=== PATIENT | male | born 1955 | race Two or more races ===

== ENCOUNTER 2020-05-05 12:20 | Inpatient (IN) | payer MEDICAID ==
[~2020-05-05] VITALS: Ht 175.3 cm; Wt 98.4 kg
[2020-05-05] MEDS ORDERED: VITAMIN C500 M1 ORAL (13:06)
[2020-05-05] MEDS ORDERED: ZINC50 MG ORAL (13:06)
[2020-05-05] MEDS ORDERED: SPIRONOLACTONE25 MG ORAL (13:06)
[2020-05-05] MEDS ORDERED: GABAPENTIN100 MG ORAL (13:06)
[2020-05-05] MEDS ORDERED: FERROUS SULFAT325 MG ORAL (13:06)
[2020-05-05] MEDS ORDERED: SERTRALINE HCL100 MG PO (13:06)
[2020-05-05] MEDS ORDERED: PROPRANOLOL HCL10 MG ORAL (13:06)
--- NOTE | 2020-05-05 13:18 | Emergency Room Report ---
History of Present Illness General Chief Complaint: General Complaint Source: Patient Present Illness HPI Disclaimer: Please note that this report is being documented using [employer] technology. This can lead to erroneous entry secondary to incorrect interpretation by the dictating instrument. HPI: 64-year-old male history of cirrhosis, hypertension, anemia, behavioral disorder presents after becoming aggressive at his [facility] facility. Apparently patient yelling and uncooperative. His primary care doctor sent him here for further evaluation. Patient denies any fever nausea vomiting chest pain or shortness of breath. 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 COVID-19 Screening: Negative COVID-19 COVID-19 Testing Source: 04/30/20 [facility] Patient History Reviewed Nursing Documentation: PMH: Agreed; PSxH: Agreed Nursing Documentation-PMH Past Medical History: No History, Except For Hx Cardiac Problems: Yes - bradycardia History Of Psychiatric Problem: Yes - depression Review of Systems All Other Systems: negative except mentioned in HPI Physical Exam Vital Signs Date Time Temp Pulse Resp B/P (MAP) Pulse Ox O2 Delivery O2 Flow Rate FiO2 05/05/20 12:21 98.4 56 18 91/53 (66) 97 Room Air Sp02 EP Interpretation: reviewed, normal General Appearance: well appearing, no apparent distress Head: normocephalic, atraumatic Eyes: bilateral eye PERRL, bilateral eye EOMI ENT: hearing grossly normal, moist mucus membranes Neck: full range of motion, supple Respiratory: lungs clear, normal breath sounds, no rhonchi, no respiratory distress, no retraction, no wheezing Cardiovascular #1: normal peripheral pulses, regular rate, rhythm, no murmur Gastrointestinal: non tender, soft, non-distended, no guarding, other - Ascites noted Musculoskeletal: other - Bilateral lower extremity edema noted 2+ up to the knees Neurologic: alert, oriented x3, no focal defects Psychiatric: other - Patient denies any suicidal or homicidal ideation. Labile mood Skin: normal color, warm/dry, other - Psoriatic changes noted Medical Decision Making Diagnostic Impression: Primary Impression: Encephalopathy Additional Impression: History of cirrhosis ER Course MDM: Differential diagnosis included but not limited to encephalopathy, behavior disorder, alcohol abuse to name a few Clinical course-the inserted, basic laboratory studies were sent. I spoke with patient's primary care doctor who states the patient was sent secondary to aggressive behavior. He can no longer be treated appropriately at his current [facility] facility. Plan will be to admit patient to the medical floor for further observation and treatment. Labs - Laboratory Tests Test 05/05/20 12:56 White Blood Count 4.1 K/UL (4.8-10.8) L Red Blood Count 4.62 M/UL (4.70-6.10) L Hemoglobin 12.4 G/DL (14.2-18.0) L Hematocrit 40.2 % (42.0-52.0) L Mean Corpuscular Volume 87 FL (80-99) Mean Corpuscular Hemoglobin 26.9 PG (27.0-31.0) L Mean Corpuscular Hemoglobin Concent 31.0 G/DL (32.0-36.0) L Red Cell Distribution Width 17.2 % (11.6-14.8) H Platelet Count 94 K/UL (150-450) L Mean Platelet Volume 8.8 FL (6.5-10.1) Neutrophils (%) (Auto) % (45.0-75.0) Lymphocytes (%) (Auto) % (20.0-45.0) Monocytes (%) (Auto) % (1.0-10.0) Eosinophils (%) (Auto) % (0.0-3.0) Basophils (%) (Auto) % (0.0-2.0) Differential Total Cells Counted 100 Neutrophils % (Manual) 49 % (45-75) Lymphocytes % (Manual) 39 % (20-45) Monocytes % (Manual) 8 % (1-10) Eosinophils % (Manual) 4 % (0-3) H Basophils % (Manual) 0 % (0-2) Band Neutrophils 0 % (0-8) Platelet Estimate Decreased L Platelet Morphology Normal Anisocytosis 1+ Sodium Level 141 MMOL/L (136-145) Potassium Level 3.8 MMOL/L (3.5-5.1) Chloride Level 107 MMOL/L (98-107) Carbon Dioxide Level 25 MMOL/L (21-32) Anion Gap 9 mmol/L (5-15) Blood Urea Nitrogen 20 mg/dL (7-18) H Creatinine 1.1 MG/DL (0.55-1.30) Estimated Glomerular Filtration Rate > 60 mL/min (>60) Glucose Level 87 MG/DL (74-106) Calcium Level 9.3 MG/DL (8.5-10.1) Total Bilirubin 0.7 MG/DL (0.2-1.0) Aspartate Amino Transferase (AST) 82 U/L (15-37) H Alanine Aminotransferase (ALT) 60 U/L (12-78) Alkaline Phosphatase 94 U/L (46-116) Ammonia 48 umol/L (11-32) H Total Protein 7.5 G/DL (6.4-8.2) Albumin 3.2 G/DL (3.4-5.0) L Globulin 4.3 g/dL Albumin/Globulin Ratio 0.7 (1.0-2.7) L Lipase 407 U/L (73-393) H Serum Alcohol < 3 mg/dL On reevaluation: Patient in no acute distress Plan-patient to Dr. Amato Last Vital Signs Date Time Temp Pulse Resp B/P (MAP) Pulse Ox O2 Delivery O2 Flow Rate FiO2 05/05/20 12:21 98.4 56 18 91/53 (66) 97 Room Air Disposition: ADMITTED INPATIENT Condition: Serious Johnson Gould M.D. May 05, 2020 13:18
[2020-05-05 13:38] LABS: HEMATOCRIT 40.2 % (42.0-52.0); HEMOGLOBIN 12.4 G/DL (14.2-18.0); MEAN CORPUSCULAR VOLUME 87 FL (80-99); PLATELET COUNT 94 K/UL (150-450); RED BLOOD COUNT 4.62 M/UL (4.70-6.10); RED CELL DISTRIBUTION WIDTH 17.2 % (11.6-14.8); WHITE BLOOD COUNT 4.1 K/UL (4.8-10.8)
[2020-05-05 13:41] VITALS: BP 91/53
[2020-05-05 13:57] LABS: ANION GAP 9 mmol/L (5-15); BLOOD UREA NITROGEN 20 mg/dL (7-18); CALCIUM 9.3 MG/DL (8.5-10.1); CARBON DIOXIDE 25 MMOL/L (21-32); CHLORIDE 107 MMOL/L (98-107); CREATININE 1.1 MG/DL (0.55-1.30); POTASSIUM 3.8 MMOL/L (3.5-5.1); SODIUM 141 MMOL/L (136-145)
[2020-05-05 14:01] LABS: ALANINE AMINOTRANSFERASE 60 U/L (12-78); ALBUMIN 3.2 G/DL (3.4-5.0); ALBUMIN/GLOBULIN RATIO 0.7 (1.0-2.7); ALKALINE PHOSPHATASE 94 U/L (46-116); ASPARTATE AMINO TRANSFERASE 82 U/L (15-37); BILIRUBIN,TOTAL 0.7 MG/DL (0.2-1.0)
[2020-05-05 14:06] LABS: AMMONIA 48 umol/L (11-32)
[2020-05-05 14:49] LABS: APPEARANCE,URINE SLIGHTLY CLOUDY; BILIRUBIN, URINE NEGATIVE (NEGATIVE); COLOR,URINE PALE YELLOW; GLUCOSE, URINE (UA) NEGATIVE (NEGATIVE); KETONES,URINE NEGATIVE (NEGATIVE); LEUKOCYTE ESTERASE ,URINE NEGATIVE (NEGATIVE); NITRITE,URINE NEGATIVE (NEGATIVE); PH,URINE 6.5 (4.5-8.0); PROTEIN,URINE NEGATIVE (NEGATIVE); UROBILINOGEN,URINE NORMAL MG/DL (0.0-1.0)
[2020-05-05 18:59] VITALS: BP 113/72
[2020-05-06] VITALS: BP 120/80
[2020-05-06 04:00] VITALS: BP 107/56
[2020-05-06 08:00] VITALS: BP 102/42
[2020-05-06] MEDS: Propranolol 10mg tab ORAL SCH ×3 (09:00→17:08)
[2020-05-06] MEDS: Sertraline 100mg tab ORAL SCH (09:56)
[2020-05-06] MEDS: Zinc Sulfate 220mg ORAL SCH (09:56)
[2020-05-06] MEDS: Spironolactone 25mg tab ORAL SCH (09:56)
[2020-05-06] MEDS: Ascorbic Acid 500mg tab ORAL SCH (09:56)
[2020-05-06] MEDS ORDERED: CLOBETASOL PROP15 GM TP (10:14)
[2020-05-06] MEDS ORDERED: ACETAMINOPHEN500 M3 ORAL (10:14)
--- NOTE | 2020-05-06 11:02 | Consultation ---
History of Present Illness General Date patient seen: May 06, 2020 Reason for Hospitalization: General Complaint Present Illness HPI This is a 64-year-old male history of cirrhosis, hypertension, anemia, behavioral disorder presents after becoming aggressive at his [facility] facility. Apparently patient yelling and uncooperative. His primary care doctor sent him here for further evaluation. Patient denies any fever nausea vomiting chest pain or shortness of breath. In ED identified to have elevated lipase pancreatitis currently abdominal discomfort surgery called to evaluate assist with care patient seen patient evaluate chart reviewed. Currently no nausea vomiting fever chills. Up and walking around brushing his teeth asking when his next meal is. Denies any current discomfort. Identified to have abdominal distention. Allergies: Coded Allergies: No Known Allergies (Unverified , 05/05/20) COVID-19 Screening Contact w/high risk pt: No Experienced COVID-19 symptoms?: No Medication History Scheduled Acetaminophen* (Acetaminophen Extra Strength*), 500 MG ORAL DAILY, (Reported) Ascorbic Acid* (Vitamin C*), 500 MG ORAL BID, (Reported) Clobetasol Propionate (Clobetasol Propionate), 1 APPLIC TP BID, (Reported) Ferrous Sulfate* (Ferrous Sulfate*), 325 MG ORAL DAILY, (Reported) Gabapentin* (Gabapentin*), 100 MG ORAL THREE TIMES A DAY, (Reported) Propranolol Hcl* (Inderal*), 10 MG ORAL THREE TIMES A DAY, (Reported) Sertraline Hcl* (Zoloft*), 100 MG PO QHS, (Reported) Spironolactone* (Aldactone*), 25 MG ORAL BID, (Reported) Miscellaneous Medications Zinc Gluconate (Zinc), 50 MG ORAL, (Reported) Patient History Limited by: medical condition History Provided By: Patient, Medical Record, PMD Healthcare decision maker Resuscitation status Advanced Directive on File Past Medical/Surgical History Past Medical/Surgical History: (1) Pancreatitis (2) History of cirrhosis (3) Encephalopathy Review of Systems Review of Symptoms General ROS: no weight loss or fever Psychological ROS: no depression or mood changes, no memory loss Ophthalmic ROS: no visual changes or eye irritation ENT ROS: no nasal congestion, hearing loss, dizziness Allergy and Immunology ROS: no allergic symptoms or urticaria Hematological and Lymphatic ROS: no swollen glands, unusual bleeding or bruising Endocrine ROS: no polyuria, polydipsia, weight changes, temperature intolerance Respiratory ROS: no cough, shortness of breath, or wheezing Cardiovascular ROS: no chest pain or dyspnea on exertion Gastrointestinal ROS: denies abdominal pain, bright red blood in stool. Musculoskeletal ROS: no myalgias or arthralgias Neurological ROS: no TIA or stroke symptoms Dermatological ROS: no new or changing skin lesions, rashes or pruritis Physical Exam Physical Exam General appearance: alert, cooperative, no distress, appears stated age Head: Normocephalic, without obvious abnormality, atraumatic Eyes: conjunctivae/corneas clear. PERRL, EOM's intact. Fundi benign Throat: Lips, mucosa, and tongue normal. Teeth and gums normal Neck: supple, symmetrical, trachea midline, no adenopathy, thyroid: not enlarged, symmetric, no tenderness/mass/nodules, no carotid bruit and no JVD Lungs: clear to auscultation bilaterally Heart: regular rate and rhythm, S1, S2 normal, no murmur, click, rub or gallop Abdomen: soft, non-tender. Bowel sounds normal. No masses, no organomegaly Extremities: extremities normal, atraumatic, no cyanosis or edema Pulses: 2+ and symmetric Skin: Skin color, texture, turgor normal. No rashes or lesions Neurologic: Grossly normal Last 24 Hour Vital Signs Date Time Temp Pulse Resp B/P (MAP) Pulse Ox O2 Delivery O2 Flow Rate FiO2 05/06/20 09:00 57 102/42 05/06/20 08:00 97.7 57 18 102/42 (62) 99 05/06/20 04:00 97.4 58 20 107/56 (73) 97 05/06/20 00:00 97.3 60 20 120/80 (93) 97 05/05/20 23:47 Room Air 05/05/20 18:59 59 18 113/72 99 Room Air 05/05/20 13:41 98.4 18 91/53 97 Room Air 98 05/05/20 13:10 18 Room Air 98 05/05/20 12:21 98.4 56 18 91/53 (66) 97 Room Air Intake and Output 05/05/20 05/06/20 19:00 07:00 Intake Total 240 ml Balance 240 ml Intake Oral 240 ml # Voids 2 Laboratory Tests Test 05/05/20 12:56 05/05/20 14:25 White Blood Count 4.1 K/UL (4.8-10.8) L Red Blood Count 4.62 M/UL (4.70-6.10) L Hemoglobin 12.4 G/DL (14.2-18.0) L Hematocrit 40.2 % (42.0-52.0) L Mean Corpuscular Volume 87 FL (80-99) Mean Corpuscular Hemoglobin 26.9 PG (27.0-31.0) L Mean Corpuscular Hemoglobin Concent 31.0 G/DL (32.0-36.0) L Red Cell Distribution Width 17.2 % (11.6-14.8) H Platelet Count 94 K/UL (150-450) L Mean Platelet Volume 8.8 FL (6.5-10.1) Neutrophils (%) (Auto) % (45.0-75.0) Lymphocytes (%) (Auto) % (20.0-45.0) Monocytes (%) (Auto) % (1.0-10.0) Eosinophils (%) (Auto) % (0.0-3.0) Basophils (%) (Auto) % (0.0-2.0) Differential Total Cells Counted 100 Neutrophils % (Manual) 49 % (45-75) Lymphocytes % (Manual) 39 % (20-45) Monocytes % (Manual) 8 % (1-10) Eosinophils % (Manual) 4 % (0-3) H Basophils % (Manual) 0 % (0-2) Band Neutrophils 0 % (0-8) Platelet Estimate Decreased L Platelet Morphology Normal Anisocytosis 1+ Sodium Level 141 MMOL/L (136-145) Potassium Level 3.8 MMOL/L (3.5-5.1) Chloride Level 107 MMOL/L (98-107) Carbon Dioxide Level 25 MMOL/L (21-32) Anion Gap 9 mmol/L (5-15) Blood Urea Nitrogen 20 mg/dL (7-18) H Creatinine 1.1 MG/DL (0.55-1.30) Estimat Glomerular Filtration Rate > 60 mL/min (>60) Glucose Level 87 MG/DL (74-106) Calcium Level 9.3 MG/DL (8.5-10.1) Total Bilirubin 0.7 MG/DL (0.2-1.0) Aspartate Amino Transf (AST/SGOT) 82 U/L (15-37) H Alanine Aminotransferase (ALT/SGPT) 60 U/L (12-78) Alkaline Phosphatase 94 U/L (46-116) Ammonia 48 umol/L (11-32) H Total Protein 7.5 G/DL (6.4-8.2) Albumin 3.2 G/DL (3.4-5.0) L Globulin 4.3 g/dL Albumin/Globulin Ratio 0.7 (1.0-2.7) L Lipase 407 U/L (73-393) H Serum Alcohol < 3 mg/dL Urine Color Pale yellow Urine Appearance Slightly cloudy Urine pH 6.5 (4.5-8.0) Urine Specific [place] 1.015 (1.005-1.035) Urine Protein Negative (NEGATIVE) Urine Glucose (UA) Negative (NEGATIVE) Urine Ketones Negative (NEGATIVE) Urine Blood Negative (NEGATIVE) Urine Nitrite Negative (NEGATIVE) Urine Bilirubin Negative (NEGATIVE) Urine Urobilinogen Normal MG/DL (0.0-1.0) Urine Leukocyte Esterase Negative (NEGATIVE) Urine Opiates Screen Negative (NEGATIVE) Urine Barbiturates Screen Negative (NEGATIVE) Phencyclidine (PCP) Screen Negative (NEGATIVE) Urine Amphetamines Screen Negative (NEGATIVE) Urine Benzodiazepines Screen Negative (NEGATIVE) Urine Cocaine Screen Negative (NEGATIVE) Urine Marijuana (THC) Screen Negative (NEGATIVE) Height (Feet): 5 Height (Inches): 9.00 Weight (Pounds): 217 Medications Current Medications Medications (Trade) Dose Ordered Sig/Mirian Route PRN Reason Start Time Stop Time Status Last Admin Dose Admin Ascorbic Acid (Vitamin C) 500 mg DAILY ORAL 05/06/20 09:00 06/05/20 08:59 05/06/20 09:56 Ferrous Sulfate (Feosol) 325 mg DAILY ORAL 05/06/20 09:00 08/04/20 08:59 05/06/20 09:57 Gabapentin (Neurontin) 100 mg THREE TIMES A DAY ORAL 05/06/20 09:00 06/05/20 08:59 05/06/20 09:57 Propranolol HCl (Inderal) 10 mg THREE TIMES A DAY ORAL 05/06/20 09:00 06/05/20 08:59 Sertraline HCl (Zoloft) 100 mg DAILY ORAL 05/06/20 09:00 06/05/20 08:59 05/06/20 09:56 Spironolactone (Aldactone) 25 mg DAILY ORAL 05/06/20 09:00 06/05/20 08:59 05/06/20 09:56 Zinc Sulfate (Zinc Sulfate) 220 mg DAILY ORAL 05/06/20 09:00 08/04/20 08:59 05/06/20 09:56 Assessment/Plan Problem List: (1) History of cirrhosis ICD Codes: Z87.19 - Personal history of other diseases of the digestive system SNOMED: 738477858 (2) Pancreatitis Assessment & Plan: This is a 64-year-old male with known history of cirrhosis and identified to have pancreatitis aggressive encephalopathy admitted for the care management. Labs noted. No current imaging available. Imaging ordered. Ultrasound abdomen. Abdominal distention fluid potentially ascites may need tap. Afebrile hemodynamic stable labs noted shift identified. LFTs noted. Okay for diet from surgical standpoint. Will follow with recommendations as imaging and orders available. ICD Codes: K85.90 - Acute pancreatitis without necrosis or infection, unspecified SNOMED: 11603153 (3) Encephalopathy ICD Codes: G93.40 - Encephalopathy, unspecified SNOMED: 01857061 Declan Cole May 06, 2020 11:02
--- NOTE | 2020-05-06 11:13 | History & Physical ---
History of Present Illness General Reason for Hospitalization: General Complaint Present Illness HPI HISTORY OF PRESENT ILLNESS: This is a 64-year-old male with past medical history of hepatitis C, hypertension, cirrhosis, anemia, and behavioral disorder, who presented to ED after becoming aggressive at his [facility] facility. Patient tested negative for COVID-19 at his facility on 04/30/2020. PAST MEDICAL HISTORY: Hypertension, hepatitis C, cirrhosis, anemia, behavioral disorder, depression MEDICATIONS: Acetaminophen, ascorbic acid, ferrous sulfate, gabapentin, propranolol, sertraline, spironolactone, zinc ALLERGIES: No known allergies FAMILY HISTORY: Noncontributory PERSONAL/SOCIAL HISTORY: Resident of [facility], current smoker (2 cigarettes a day for 3 years), history of methamphetamine use (for 5 years, quit 4 years ago) REVIEW OF SYSTEMS: Patient denies chest pain, shortness of breath, headache, fever, nausea, vomiting, abdominal pain, cough. Allergies: Coded Allergies: No Known Allergies (Unverified , 05/05/20) COVID-19 Screening Contact w/high risk pt: No Experienced COVID-19 symptoms?: No Medication History Scheduled Acetaminophen* (Acetaminophen Extra Strength*), 500 MG ORAL DAILY, (Reported) Ascorbic Acid* (Vitamin C*), 500 MG ORAL BID, (Reported) Clobetasol Propionate (Clobetasol Propionate), 1 APPLIC TP BID, (Reported) Ferrous Sulfate* (Ferrous Sulfate*), 325 MG ORAL DAILY, (Reported) Gabapentin* (Gabapentin*), 100 MG ORAL THREE TIMES A DAY, (Reported) Propranolol Hcl* (Inderal*), 10 MG ORAL THREE TIMES A DAY, (Reported) Sertraline Hcl* (Zoloft*), 100 MG PO QHS, (Reported) Spironolactone* (Aldactone*), 25 MG ORAL BID, (Reported) Miscellaneous Medications Zinc Gluconate (Zinc), 50 MG ORAL, (Reported) Patient History Healthcare decision maker Resuscitation status Advanced Directive on File Review of Systems Review of Symptoms General ROS: no weight loss or fever Psychological ROS: no depression or mood changes, no memory loss Ophthalmic ROS: no visual changes or eye irritation ENT ROS: no nasal congestion, hearing loss, dizziness Allergy and Immunology ROS: no allergic symptoms or urticaria Hematological and Lymphatic ROS: no swollen glands, unusual bleeding or bruising Endocrine ROS: no polyuria, polydipsia, weight changes, temperature intolerance Respiratory ROS: no cough, shortness of breath, or wheezing Cardiovascular ROS: no chest pain or dyspnea on exertion Gastrointestinal ROS: denies abdominal pain, bright red blood in stool. Musculoskeletal ROS: no myalgias or arthralgias Neurological ROS: no TIA or stroke symptoms Dermatological ROS: no new or changing skin lesions, rashes or pruritis Physical Exam Physical Exam General appearance: alert, cooperative, no distress, appears stated age Head: Normocephalic, without obvious abnormality, atraumatic Eyes: conjunctivae/corneas clear. PERRL, EOM's intact. Fundi benign Throat: Lips, mucosa, and tongue normal. Teeth and gums normal Neck: supple, symmetrical, trachea midline, no adenopathy, thyroid: not enlarged, symmetric, no tenderness/mass/nodules, no carotid bruit and no JVD Lungs: clear to auscultation bilaterally Heart: regular rate and rhythm, S1, S2 normal, no murmur, click, rub or gallop Abdomen: soft, non-tender. Bowel sounds normal. No masses, no organomegaly Extremities: extremities normal, atraumatic, no cyanosis or edema Pulses: 2+ and symmetric Skin: Skin color, texture, turgor normal. No rashes or lesions Neurologic: Grossly normal Last 24 Hour Vital Signs Date Time Temp Pulse Resp B/P (MAP) Pulse Ox O2 Delivery O2 Flow Rate FiO2 05/06/20 09:00 57 102/42 05/06/20 08:00 97.7 57 18 102/42 (62) 99 05/06/20 04:00 97.4 58 20 107/56 (73) 97 05/06/20 00:00 97.3 60 20 120/80 (93) 97 05/05/20 23:47 Room Air 05/05/20 18:59 59 18 113/72 99 Room Air 05/05/20 13:41 98.4 18 91/53 97 Room Air 98 05/05/20 13:10 18 Room Air 98 05/05/20 12:21 98.4 56 18 91/53 (66) 97 Room Air Intake and Output 05/05/20 05/06/20 19:00 07:00 Intake Total 240 ml Balance 240 ml Intake Oral 240 ml # Voids 2 Laboratory Tests Test 05/05/20 12:56 05/05/20 14:25 White Blood Count 4.1 K/UL (4.8-10.8) L Red Blood Count 4.62 M/UL (4.70-6.10) L Hemoglobin 12.4 G/DL (14.2-18.0) L Hematocrit 40.2 % (42.0-52.0) L Mean Corpuscular Volume 87 FL (80-99) Mean Corpuscular Hemoglobin 26.9 PG (27.0-31.0) L Mean Corpuscular Hemoglobin Concent 31.0 G/DL (32.0-36.0) L Red Cell Distribution Width 17.2 % (11.6-14.8) H Platelet Count 94 K/UL (150-450) L Mean Platelet Volume 8.8 FL (6.5-10.1) Neutrophils (%) (Auto) % (45.0-75.0) Lymphocytes (%) (Auto) % (20.0-45.0) Monocytes (%) (Auto) % (1.0-10.0) Eosinophils (%) (Auto) % (0.0-3.0) Basophils (%) (Auto) % (0.0-2.0) Differential Total Cells Counted 100 Neutrophils % (Manual) 49 % (45-75) Lymphocytes % (Manual) 39 % (20-45) Monocytes % (Manual) 8 % (1-10) Eosinophils % (Manual) 4 % (0-3) H Basophils % (Manual) 0 % (0-2) Band Neutrophils 0 % (0-8) Platelet Estimate Decreased L Platelet Morphology Normal Anisocytosis 1+ Sodium Level 141 MMOL/L (136-145) Potassium Level 3.8 MMOL/L (3.5-5.1) Chloride Level 107 MMOL/L (98-107) Carbon Dioxide Level 25 MMOL/L (21-32) Anion Gap 9 mmol/L (5-15) Blood Urea Nitrogen 20 mg/dL (7-18) H Creatinine 1.1 MG/DL (0.55-1.30) Estimat Glomerular Filtration Rate > 60 mL/min (>60) Glucose Level 87 MG/DL (74-106) Calcium Level 9.3 MG/DL (8.5-10.1) Total Bilirubin 0.7 MG/DL (0.2-1.0) Aspartate Amino Transf (AST/SGOT) 82 U/L (15-37) H Alanine Aminotransferase (ALT/SGPT) 60 U/L (12-78) Alkaline Phosphatase 94 U/L (46-116) Ammonia 48 umol/L (11-32) H Total Protein 7.5 G/DL (6.4-8.2) Albumin 3.2 G/DL (3.4-5.0) L Globulin 4.3 g/dL Albumin/Globulin Ratio 0.7 (1.0-2.7) L Lipase 407 U/L (73-393) H Serum Alcohol < 3 mg/dL Urine Color Pale yellow Urine Appearance Slightly cloudy Urine pH 6.5 (4.5-8.0) Urine Specific [place] 1.015 (1.005-1.035) Urine Protein Negative (NEGATIVE) Urine Glucose (UA) Negative (NEGATIVE) Urine Ketones Negative (NEGATIVE) Urine Blood Negative (NEGATIVE) Urine Nitrite Negative (NEGATIVE) Urine Bilirubin Negative (NEGATIVE) Urine Urobilinogen Normal MG/DL (0.0-1.0) Urine Leukocyte Esterase Negative (NEGATIVE) Urine Opiates Screen Negative (NEGATIVE) Urine Barbiturates Screen Negative (NEGATIVE) Phencyclidine (PCP) Screen Negative (NEGATIVE) Urine Amphetamines Screen Negative (NEGATIVE) Urine Benzodiazepines Screen Negative (NEGATIVE) Urine Cocaine Screen Negative (NEGATIVE) Urine Marijuana (THC) Screen Negative (NEGATIVE) Height (Feet): 5 Height (Inches): 9.00 Weight (Pounds): 217 Medications Current Medications Medications (Trade) Dose Ordered Sig/Mirian Route PRN Reason Start Time Stop Time Status Last Admin Dose Admin Ascorbic Acid (Vitamin C) 500 mg DAILY ORAL 05/06/20 09:00 06/05/20 08:59 05/06/20 09:56 Ferrous Sulfate (Feosol) 325 mg DAILY ORAL 05/06/20 09:00 08/04/20 08:59 05/06/20 09:57 Gabapentin (Neurontin) 100 mg THREE TIMES A DAY ORAL 05/06/20 09:00 06/05/20 08:59 05/06/20 09:57 Propranolol HCl (Inderal) 10 mg THREE TIMES A DAY ORAL 05/06/20 09:00 06/05/20 08:59 Sertraline HCl (Zoloft) 100 mg DAILY ORAL 05/06/20 09:00 06/05/20 08:59 3/5/21 09:56 Spironolactone (Aldactone) 25 mg DAILY ORAL 05/06/20 09:00 06/05/20 08:59 05/06/20 09:56 Zinc Sulfate (Zinc Sulfate) 220 mg DAILY ORAL 05/06/20 09:00 08/04/20 08:59 05/06/20 09:56 Assessment/Plan Diagnosis [place] [facility]: #hepatitis C cirrhosis #Elevated lipase #hypertension #cirrhosis #anemia, #behavioral disorder, - admit inpatient - GI eval - gen surg eval - monitor LFTS - abd US - resume [employer] meds - monitor lytes - propanalol 10 TID - aldactone 25mg daily [facility] Hospital declaration I spent 70 minutes on this patient's case, and 35 minutes was dedicated to counseling and/or care coordination. MIPS (Merit-based Incentive Payment System) Applicable CPT: 53101, 29167 CHECK ALL THAT ARE MET: Measure #5 (CHF): All ages. Prescribe KAREEN/ARB upon discharge for patients with left ventricular systolic dysfunction. If not, the reason is clearly documented in the medical chart. Measure #8 (CHF): All ages. Prescribe a beta xiomara upon discharge for patients with left ventricular systolic dysfunction. If not, the reason is clearly documented in the medical chart. Measure #47 Advance care plan or surrogate decision maker documented in the medical record. Measure #130 The provider has documented, updated, or reviewed the patients current medication list and has documented it in the patients note. Measure #374 (All): Send report to referring provider. Measure #407(Sepsis due to MSSA bacteremia): Age 18+ Patient treated with a beta-lactam antibiotic (Nafcillin, Oxacillin or Cefazolin) as definitive therapy. MEDICAL COMPLEXITY High complexity medical decision making (need 2/3 categories) Problem - need 4 points Acute/new problem with new plan for workup (4 points, 1 max) Acute/new problem without additional workup (3 points, 1 max) Unstable chronic problem actively being managed (2 point each, 2 max) Stable chronic problem actively being managed (1 point each, 2 max) Self-limited/transient process (constipation, muscle ache, etc) (1 point each, 2 max) Data - need 4 points Reviewed labs/imaging studies (1 points, 2 max) Independent review of imaging (EKG, xrays, etc) (2 points, 2 max) Discussed case with consult/other MD/RN (2 points, 2 max) High Risk - qualify if have one of the following: Severe exacerbation of acute problem, acute mental status change, IV narcotics, monitoring drug levels (vancomycin, INR, tacrolimus etc) Robert Amato M.D. May 06, 2020 11:13
--- NOTE | 2020-05-06 11:56 | Consultation ---
Consult Note Consult Note DATE OF CONSULTATION: 05/06/2020 CONSULTING PHYSICIAN: Antonio Gomez MD. ATTENDING PHYSICIAN: Dr. Amato REASON FOR CONSULTATION: Current smoker, encephalopathy HISTORY OF PRESENT ILLNESS: This is a 64-year-old male with past medical history of hepatitis C, hypertension, cirrhosis, anemia, and behavioral disorder, who presented to ED after becoming aggressive at his [facility] facility. Patient tested negative for COVID-19 at his facility on 04/30/2020. PAST MEDICAL HISTORY: Hypertension, hepatitis C, cirrhosis, anemia, behavioral disorder, depression MEDICATIONS: Acetaminophen, ascorbic acid, ferrous sulfate, gabapentin, propranolol, sertraline, spironolactone, zinc ALLERGIES: No known allergies FAMILY HISTORY: Noncontributory PERSONAL/SOCIAL HISTORY: Resident of [facility], current smoker (2 cigarettes a day for 3 years), history of methamphetamine use (for 5 years, quit 4 years ago) REVIEW OF SYSTEMS: Patient denies chest pain, shortness of breath, headache, fever, nausea, vomiting, abdominal pain, cough. PHYSICAL EXAMINATION: VITAL SIGNS: Blood pressure 102/42, heart rate 57, respiratory rate 18, weight 98, height 175 cm. General: Patient laying in bed comfortably, NAD on room air HEENT: Head exam reveals that the head is normocephalic, atraumatic without deformity or unusual swelling. Pupils are PERRLA. Missing multiple teeth CHEST AND LUNGS: Reveals clear, normal, symmetrical breath sounds with no adventitious sounds. A well-healed linear vertical scar in the midline in the upper anterior chest from previous valvuloplasty due to vegetation. CARDIOVASCULAR: Reveals normal S1, S2 without murmurs, rubs, or clicks. ABDOMEN: Distended abdomen, soft, nontender, well-healed linear vertical scar in the midline of abdomen from previous abdominal surgeries, patient reports laparotomy MUSCULOSKELETAL: There is no tenderness to palpation. Range of motion is normal. NEUROLOGICAL: Alert and oriented x3 , nonfocal Extremities: 2-3+ edema in bilateral lower extremities, with ulceration and hyperkeratotic skin lesions LABORATORY DATA: Laboratory testing shows white blood cell 4.1, hemoglobin 12.4, hematocrit 40.2 Chemistries show BUN 20, AST 82, ammonia 48, albumin 3.2, lipase 407 Toxicology screening was clear Assessment/Plan 1. Nicotine dependence -Patient education on smoking cessation 2. Normoxemia 3. COVID-19 negative (04/30) 4. Pancreatitis - Seen by surgery - Abd US The care for this patient was discussed with my supervising physician. Time spent for this case was approximately 31 minutes. Anthony Cohen May 06, 2020 11:56
[2020-05-06 12:00] VITALS: BP 107/55
[2020-05-06 16:00] VITALS: BP 110/65
--- NOTE | 2020-05-06 17:50 | Diagnostic Imaging Report ---
Indication: Abdominal distention, abnormal liver function tests Technique: Huggins-scale and duplex images of the upper abdomen were obtained Comparison: none Findings: Gallbladder chemistries gallstones. Sonographic Rutledge's sign is negative. Common bile duct measures 4 mm in diameter. No intrahepatic biliary ductal dilatation. Liver demonstrates coarsened echogenicity and surface nodularity. Echogenicity is also heterogeneous. There is a small amount of ascites fluid Portal vein and hepatic veins are patent. Pancreas is obscured by bowel gas. The spleen is enlarged, measuring 17.6 cm long axis dimension. Left kidney measures 11.6 cm in length. Right kidney measures 10.3 cm length. Both kidneys demonstrate normal echogenicity. There is no hydronephrosis. There is a small cyst in the interpolar region of the left kidney and another in the interpolar region of the right kidney. . Abdominal aorta is obscured by bowel gas . Impression: Evidence of hepatic cirrhosis, with coarsened echogenicity and surface nodularity Splenomegaly Cholelithiasis. Negative for dilated ducts Bilateral renal cysts incidentally noted
[2020-05-06 20:00] VITALS: BP 106/68
[2020-05-07] VITALS: BP 91/63
[2020-05-07 04:00] VITALS: BP 90/60
[2020-05-07 06:05] LABS: HEMATOCRIT 38.9 % (42.0-52.0); HEMOGLOBIN 12.1 G/DL (14.2-18.0); MEAN CORPUSCULAR VOLUME 87 FL (80-99); PLATELET COUNT 87 K/UL (150-450); RED BLOOD COUNT 4.48 M/UL (4.70-6.10); RED CELL DISTRIBUTION WIDTH 17.2 % (11.6-14.8); WHITE BLOOD COUNT 3.3 K/UL (4.8-10.8)
[2020-05-07 06:15] LABS: INR 1.2 (0.9-1.1)
[2020-05-07 06:41] LABS: ALANINE AMINOTRANSFERASE 67 U/L (12-78); ALBUMIN 3.1 G/DL (3.4-5.0); ALBUMIN/GLOBULIN RATIO 0.7 (1.0-2.7); ALKALINE PHOSPHATASE 87 U/L (46-116); AMYLASE 77 U/L (25-115); ANION GAP 7 mmol/L (5-15); ASPARTATE AMINO TRANSFERASE 83 U/L (15-37); BILIRUBIN,TOTAL 0.9 MG/DL (0.2-1.0); BLOOD UREA NITROGEN 21 mg/dL (7-18); CALCIUM 9.5 MG/DL (8.5-10.1); CARBON DIOXIDE 26 MMOL/L (21-32); CHLORIDE 108 MMOL/L (98-107); CREATININE 1.1 MG/DL (0.55-1.30); POTASSIUM 4.1 MMOL/L (3.5-5.1); SODIUM 141 MMOL/L (136-145)
[2020-05-07 08:00] VITALS: BP 96/59
[2020-05-07] MEDS: Ascorbic Acid 500mg tab ORAL SCH (08:58)
[2020-05-07] MEDS: Sertraline 100mg tab ORAL SCH (08:58)
[2020-05-07] MEDS: Zinc Sulfate 220mg ORAL SCH (08:58)
[2020-05-07] MEDS: Spironolactone 25mg tab ORAL SCH (08:59)
[2020-05-07] MEDS: Propranolol 10mg tab ORAL SCH ×3 (08:59→17:07)
--- NOTE | 2020-05-07 10:49 | Surgery Progress Note ---
Surgery Progress Note Subjective Symptoms: improved, pain absent, tolerating diet, passing flatus Objective Last 24 Hour Vital Signs Date Time Temp Pulse Resp B/P (MAP) Pulse Ox O2 Delivery O2 Flow Rate FiO2 05/07/20 08:59 54 96/59 05/07/20 07:56 Room Air 05/07/20 04:00 98.1 73 18 90/60 (70) 97 05/07/20 00:00 98.2 65 19 91/63 (72) 97 05/06/20 21:28 Room Air 05/06/20 20:00 97.8 68 18 106/68 (81) 96 05/06/20 17:08 62 110/65 05/06/20 16:00 96.9 62 18 110/65 (80) 99 05/06/20 12:54 54 107/55 05/06/20 12:00 97.8 54 19 107/55 (72) 98 I&O Intake and Output 05/06/20 05/07/20 19:00 07:00 Intake Total 700 ml 480 ml Balance 700 ml 480 ml Intake Oral 480 ml Other 700 ml # Voids 3 Dressing: dry Wound: clean Cardiovascular: RSR Respiratory: clear Abdomen: soft, flat, non-tender, present bowel sounds, non-distended Extremities: edema, no tenderness, no cyanosis Laboratory Tests Test 05/07/20 05:20 White Blood Count 3.3 K/UL (4.8-10.8) L Red Blood Count 4.48 M/UL (4.70-6.10) L Hemoglobin 12.1 G/DL (14.2-18.0) L Hematocrit 38.9 % (42.0-52.0) L Mean Corpuscular Volume 87 FL (80-99) Mean Corpuscular Hemoglobin 27.1 PG (27.0-31.0) Mean Corpuscular Hemoglobin Concent 31.2 G/DL (32.0-36.0) L Red Cell Distribution Width 17.2 % (11.6-14.8) H Platelet Count 87 K/UL (150-450) L Mean Platelet Volume 8.8 FL (6.5-10.1) Neutrophils (%) (Auto) % (45.0-75.0) Lymphocytes (%) (Auto) % (20.0-45.0) Monocytes (%) (Auto) % (1.0-10.0) Eosinophils (%) (Auto) % (0.0-3.0) Basophils (%) (Auto) % (0.0-2.0) Differential Total Cells Counted 100 Neutrophils % (Manual) 47 % (45-75) Lymphocytes % (Manual) 41 % (20-45) Monocytes % (Manual) 7 % (1-10) Eosinophils % (Manual) 5 % (0-3) H Basophils % (Manual) 0 % (0-2) Band Neutrophils 0 % (0-8) Platelet Estimate Decreased L Platelet Morphology Normal Hypochromasia 1+ Anisocytosis 1+ Erythrocyte Sedimentation Rate 25 MM/HR (0-20) H Prothrombin Time 12.8 SEC (9.30-11.50) H Prothromb Time International Ratio 1.2 (0.9-1.1) H Activated Partial Thromboplast Time 30 SEC (23-33) Sodium Level 141 MMOL/L (136-145) Potassium Level 4.1 MMOL/L (3.5-5.1) Chloride Level 108 MMOL/L (98-107) H Carbon Dioxide Level 26 MMOL/L (21-32) Anion Gap 7 mmol/L (5-15) Blood Urea Nitrogen 21 mg/dL (7-18) H Creatinine 1.1 MG/DL (0.55-1.30) Estimat Glomerular Filtration Rate > 60 mL/min (>60) Glucose Level 87 MG/DL (74-106) Calcium Level 9.5 MG/DL (8.5-10.1) Total Bilirubin 0.9 MG/DL (0.2-1.0) Aspartate Amino Transf (AST/SGOT) 83 U/L (15-37) H Alanine Aminotransferase (ALT/SGPT) 67 U/L (12-78) Alkaline Phosphatase 87 U/L (46-116) C-Reactive Protein, Quantitative 1.8 mg/dL (0.00-0.90) H Total Protein 7.6 G/DL (6.4-8.2) Albumin 3.1 G/DL (3.4-5.0) L Globulin 4.5 g/dL Albumin/Globulin Ratio 0.7 (1.0-2.7) L Amylase Level 77 U/L (25-115) Lipase 499 U/L (73-393) H Plan Problems: (1) History of cirrhosis (2) Pancreatitis Assessment & Plan: This is a 64-year-old male with known history of cirrhosis and identified to have pancreatitis aggressive encephalopathy admitted for the care management. Labs noted. No current imaging available. Imaging ordered. Ultrasound abdomen. Abdominal distention fluid potentially ascites may need tap. Afebrile hemodynamic stable labs noted shift identified. LFTs noted. Okay for diet from surgical standpoint. Will follow with recommendations as imaging and orders available. Pt presented on admission with Edema Bilat Lower Extremity,Ulcer Medial R tibia. Haemosiderin Stain with Xerotic Skin and scattered hyperkeratotic plaques. Both feet are cool to touch. Wound Medial R lower extremity;just inferior to Knee. Wound is moist,sarai with Biofilm. Small area of Necrosis clockwise along borders @8o'clock. Borders are irregular,and macerated.Wound oozing serous exudate.(L)3.4cm x (W)2.2cm x (D)0.3cm. Mild odor noted. Pt stated having wound for 3months. Dried sanguineous exudate noted to nail matrix of R 1st, 2nd,3rd,4th and 5th metatarsals. Post cleansing ,pt noted to have several small lacerations. In addition, small laceration noted at base, plantar R 1st metatarsal. Pt stated" I confess, I have been using a nail to pick at my toenails." In addition, several linear cuts noted to plantar R Heel. Education provided to pt of risks for infection,or worse secondary to compromised circulation in lower extremities. Pt also given education on skin care to promote skin integrity and preventing ulcerations. Encouraged to keep legs elevated while sitting or while in bed. Tx.Plan: Wash and moisturize both lower extremities Daily and prn. Cleanse wound R lower extremity with Saline. Apply Silvasorb Gel. Apply Maxsorb Extra . Cover with ABD Pad. Wrap with Kerlix from Base of Toes to below Knee Daily and prn. Apply Betadine to Nail Matrixes of toes R foot, Plantar R 1st metatarsal and Plantar R Heel Daily. Elevate Both Lower Extremities with Pillows. (3) Encephalopathy JesúsDeclan de la fuente May 07, 2020 10:49
--- NOTE | 2020-05-07 11:33 | Pulmonology Progress Note ---
Subjective Interval Events: None new reported Constitutional: Reports: no symptoms HEENT: Repors: no symptoms Respiratory: Reports: no symptoms Cardiovascular: Reports: no symptoms Gastrointestinal/Abdominal: Reports: no symptoms Genitourinary: Reports: no symptoms Neurologic: Reports: no symptoms Allergies: Coded Allergies: No Known Allergies (Unverified , 05/05/20) Objective Last 24 Hour Vital Signs Date Time Temp Pulse Resp B/P (MAP) Pulse Ox O2 Delivery O2 Flow Rate FiO2 05/07/20 08:59 54 96/59 05/07/20 08:00 97.7 54 18 96/59 (71) 97 05/07/20 07:56 Room Air 05/07/20 04:00 98.1 73 18 90/60 (70) 97 05/07/20 00:00 98.2 65 19 91/63 (72) 97 05/06/20 21:28 Room Air 05/06/20 20:00 97.8 68 18 106/68 (81) 96 05/06/20 17:08 62 110/65 05/06/20 16:00 96.9 62 18 110/65 (80) 99 05/06/20 12:54 54 107/55 05/06/20 12:00 97.8 54 19 107/55 (72) 98 Intake and Output 05/06/20 05/07/20 19:00 07:00 Intake Total 700 ml 480 ml Balance 700 ml 480 ml Intake Oral 480 ml Other 700 ml # Voids 3 General Appearance: no acute distress HEENT: normocephalic Respiratory: chest wall non-tender, lungs clear Cardiovascular: normal peripheral pulses, normal rate Abdomen: normal bowel sounds, soft, non tender Laboratory Tests 05/07/20 05:20: White Blood Count 3.3L, Red Blood Count 4.48L, Hemoglobin 12.1L, Hematocrit 38.9L, Mean Corpuscular Volume 87, Mean Corpuscular Hemoglobin 27.1, Mean Corpuscular Hemoglobin Concent 31.2L, Red Cell Distribution Width 17.2H, Platelet Count 87L, Mean Platelet Volume 8.8, Neutrophils (%) (Auto) , Lymphocytes (%) (Auto) , Monocytes (%) (Auto) , Eosinophils (%) (Auto) , Basophils (%) (Auto) , Differential Total Cells Counted 100, Neutrophils % (Manual) 47, Lymphocytes % (Manual) 41, Monocytes % (Manual) 7, Eosinophils % (Manual) 5H, Basophils % (Manual) 0, Band Neutrophils 0, Platelet Estimate DecreasedL, Platelet Morphology Normal, Hypochromasia 1+, Anisocytosis 1+, Erythrocyte Sedimentation Rate 25H, Prothrombin Time 12.8H, Prothromb Time International Ratio 1.2H, Activated Partial Thromboplast Time 30, Sodium Level 141, Potassium Level 4.1, Chloride Level 108H, Carbon Dioxide Level 26, Anion Gap 7, Blood Urea Nitrogen 21H, Creatinine 1.1, Estimat Glomerular Filtration Rate > 60, Glucose Level 87, Calcium Level 9.5, Total Bilirubin 0.9, Aspartate Amino Transf (AST/SGOT) 83H, Alanine Aminotransferase (ALT/SGPT) 67, Alkaline Phosphatase 87, C-Reactive Protein, Quantitative 1.8H, Total Protein 7.6, Albumin 3.1L, Globulin 4.5, Albumin/Globulin Ratio 0.7L, Amylase Level 77, Lipase 499H Current Medications Medications (Trade) Dose Ordered Sig/Mirian Route PRN Reason Start Time Stop Time Status Last Admin Dose Admin Ascorbic Acid (Vitamin C) 500 mg DAILY ORAL 05/06/20 09:00 06/05/20 08:59 05/07/20 08:58 Ferrous Sulfate (Feosol) 325 mg DAILY ORAL 05/06/20 09:00 08/04/20 08:59 05/07/20 08:58 Gabapentin (Neurontin) 100 mg THREE TIMES A DAY ORAL 05/06/20 09:00 06/05/20 08:59 05/07/20 08:58 Propranolol HCl (Inderal) 10 mg THREE TIMES A DAY ORAL 05/06/20 09:00 06/05/20 08:59 05/06/20 17:08 Sertraline HCl (Zoloft) 100 mg DAILY ORAL 05/06/20 09:00 06/05/20 08:59 05/07/20 08:58 Spironolactone (Aldactone) 25 mg DAILY ORAL 05/06/20 09:00 06/05/20 08:59 05/06/20 09:56 Zinc Sulfate (Zinc Sulfate) 220 mg DAILY ORAL 05/06/20 09:00 08/04/20 08:59 05/07/20 08:58 Assessment/Plan Assessment/Plan 1. Nicotine dependence -Patient education on smoking cessation 2. Normoxemia 3. COVID-19 negative (04/30) 4. Pancreatitis - Seen by surgery Respiratory status is stable Saturating well on RA Antonio Gomez MD May 07, 2020 11:33
[2020-05-07 11:39] VITALS: BP 104/63
--- NOTE | 2020-05-07 13:35 | Internal Med Progress Note ---
Subjective Physician Name Robert Amato Attending Physician Robert Amato M.D. Current Medications Medications (Trade) Dose Ordered Sig/Mirian Route PRN Reason Start Time Stop Time Status Last Admin Dose Admin Ascorbic Acid (Vitamin C) 500 mg DAILY ORAL 05/06/20 09:00 06/05/20 08:59 05/07/20 08:58 Ferrous Sulfate (Feosol) 325 mg DAILY ORAL 05/06/20 09:00 08/04/20 08:59 05/07/20 08:58 Gabapentin (Neurontin) 100 mg THREE TIMES A DAY ORAL 05/06/20 09:00 06/05/20 08:59 05/07/20 12:25 Propranolol HCl (Inderal) 10 mg THREE TIMES A DAY ORAL 05/06/20 09:00 06/05/20 08:59 05/07/20 12:25 Sertraline HCl (Zoloft) 100 mg DAILY ORAL 05/06/20 09:00 06/05/20 08:59 05/07/20 08:58 Spironolactone (Aldactone) 25 mg DAILY ORAL 05/06/20 09:00 06/05/20 08:59 05/06/20 09:56 Zinc Sulfate (Zinc Sulfate) 220 mg DAILY ORAL 05/06/20 09:00 08/04/20 08:59 05/07/20 08:58 Allergies: Coded Allergies: No Known Allergies (Unverified , 05/05/20) ROS Limited/Unobtainable: No Constitutional: Reports: weakness HEENT: Denies: no symptoms, eye pain, blurred vision, tearing, double vision, ear pain, ear discharge, nose pain, nose congestion, throat pain, throat swelling, mouth pain, mouth swelling, other Cardiovascular: Denies: no symptoms, chest pain, edema, irregular heart rate, lightheadedness, palpitations, syncope, other Respiratory: Denies: no symptoms, cough, orthopnea, shortness of breath, SOB w ith excertion, SOB at rest, sputum, stridor, wheezing, other Gastrointestinal/Abdominal: Denies: no symptoms, abdomen distended, abdominal pain, black stools, tarry stools, blood in stool, constipated, diarrhea, difficulty swallowing, nausea, poor appetite, poor fluid intake, rectal bleeding, vomiting, other Genitourinary: Denies: no symptoms, burning, discharge, frequency, flank pain, hematuria, incontinence, pain, urgency, other Neurologic/Psychiatric: Denies: no symptoms, anxiety, depressed, emotional problems, headache, numbness, paresthesia, pre-existing deficit, seizure, tingling, tremors, weakness, other Subjective Impression: Evidence of hepatic cirrhosis, with coarsened echogenicity and surface nodularity Splenomegaly Cholelithiasis. Negative for dilated ducts Bilateral renal cysts incidentally noted Objective Last Vital Signs Date Time Temp Pulse Resp B/P (MAP) Pulse Ox O2 Delivery O2 Flow Rate FiO2 05/07/20 12:25 56 104/63 05/07/20 11:39 97.3 18 98 05/07/20 07:56 Room Air 05/05/20 13:41 98 General Appearance: no apparent distress, alert EENT: PERRL/EOMI, normal ENT inspection Neck: non-tender, normal alignment Cardiovascular: normal peripheral pulses, normal rate Respiratory/Chest: chest wall non-tender, lungs clear Abdomen: normal bowel sounds, non tender Edema: mild edema Neurologic: alert, oriented x 3 Laboratory Tests Test 05/07/20 05:20 White Blood Count 3.3 K/UL (4.8-10.8) L Red Blood Count 4.48 M/UL (4.70-6.10) L Hemoglobin 12.1 G/DL (14.2-18.0) L Hematocrit 38.9 % (42.0-52.0) L Mean Corpuscular Volume 87 FL (80-99) Mean Corpuscular Hemoglobin 27.1 PG (27.0-31.0) Mean Corpuscular Hemoglobin Concent 31.2 G/DL (32.0-36.0) L Red Cell Distribution Width 17.2 % (11.6-14.8) H Platelet Count 87 K/UL (150-450) L Mean Platelet Volume 8.8 FL (6.5-10.1) Neutrophils (%) (Auto) % (45.0-75.0) Lymphocytes (%) (Auto) % (20.0-45.0) Monocytes (%) (Auto) % (1.0-10.0) Eosinophils (%) (Auto) % (0.0-3.0) Basophils (%) (Auto) % (0.0-2.0) Differential Total Cells Counted 100 Neutrophils % (Manual) 47 % (45-75) Lymphocytes % (Manual) 41 % (20-45) Monocytes % (Manual) 7 % (1-10) Eosinophils % (Manual) 5 % (0-3) H Basophils % (Manual) 0 % (0-2) Band Neutrophils 0 % (0-8) Platelet Estimate Decreased L Platelet Morphology Normal Hypochromasia 1+ Anisocytosis 1+ Erythrocyte Sedimentation Rate 25 MM/HR (0-20) H Prothrombin Time 12.8 SEC (9.30-11.50) H Prothromb Time International Ratio 1.2 (0.9-1.1) H Activated Partial Thromboplast Time 30 SEC (23-33) Sodium Level 141 MMOL/L (136-145) Potassium Level 4.1 MMOL/L (3.5-5.1) Chloride Level 108 MMOL/L (98-107) H Carbon Dioxide Level 26 MMOL/L (21-32) Anion Gap 7 mmol/L (5-15) Blood Urea Nitrogen 21 mg/dL (7-18) H Creatinine 1.1 MG/DL (0.55-1.30) Estimat Glomerular Filtration Rate > 60 mL/min (>60) Glucose Level 87 MG/DL (74-106) Calcium Level 9.5 MG/DL (8.5-10.1) Total Bilirubin 0.9 MG/DL (0.2-1.0) Aspartate Amino Transf (AST/SGOT) 83 U/L (15-37) H Alanine Aminotransferase (ALT/SGPT) 67 U/L (12-78) Alkaline Phosphatase 87 U/L (46-116) C-Reactive Protein, Quantitative 1.8 mg/dL (0.00-0.90) H Total Protein 7.6 G/DL (6.4-8.2) Albumin 3.1 G/DL (3.4-5.0) L Globulin 4.5 g/dL Albumin/Globulin Ratio 0.7 (1.0-2.7) L Amylase Level 77 U/L (25-115) Lipase 499 U/L (73-393) H Intake and Output 05/06/20 05/07/20 19:00 07:00 Intake Total 700 ml 480 ml Balance 700 ml 480 ml Intake Oral 480 ml Other 700 ml # Voids 3 Assessment/Plan Assessment/Plan #hepatitis C cirrhosis #Elevated lipase #hypertension #cirrhosis #anemia, #behavioral disorder, - admit inpatient - GI eval - gen surg eval - monitor LFTS - abd US - resume [employer] meds - monitor lytes - propanalol 10 TID - aldactone 25mg daily Robert Amato M.D. May 07, 2020 13:35
[2020-05-07 16:00] VITALS: BP 98/55
[2020-05-07 20:00] VITALS: BP 107/63
[2020-05-08] VITALS: BP 104/60
[2020-05-08 04:00] VITALS: BP 111/62
[2020-05-08 08:00] VITALS: BP 118/64
[2020-05-08] MEDS: Propranolol 10mg tab ORAL SCH ×3 (09:00→17:51)
[2020-05-08] MEDS: Zinc Sulfate 220mg ORAL SCH (09:11)
[2020-05-08] MEDS: Ascorbic Acid 500mg tab ORAL SCH (09:12)
[2020-05-08] MEDS: Spironolactone 25mg tab ORAL SCH (09:12)
[2020-05-08] MEDS: Sertraline 100mg tab ORAL SCH (09:12)
--- NOTE | 2020-05-08 09:44 | Pulmonology Progress Note ---
Subjective Interval Events: None new reported Constitutional: Reports: no symptoms HEENT: Repors: no symptoms Respiratory: Reports: no symptoms Cardiovascular: Reports: no symptoms Gastrointestinal/Abdominal: Reports: no symptoms Genitourinary: Reports: no symptoms Neurologic: Reports: no symptoms Allergies: Coded Allergies: No Known Allergies (Unverified , 05/05/20) Objective Last 24 Hour Vital Signs Date Time Temp Pulse Resp B/P (MAP) Pulse Ox O2 Delivery O2 Flow Rate FiO2 05/08/20 09:00 66 118/64 05/08/20 08:00 97.7 66 18 118/64 (82) 98 05/08/20 04:00 98.9 69 18 111/62 (78) 98 05/08/20 00:00 98.5 63 20 104/60 (75) 97 05/07/20 21:05 Room Air 05/07/20 20:00 98.7 59 18 107/63 (78) 97 05/07/20 17:07 56 98/55 05/07/20 16:00 98.0 56 18 98/55 (69) 98 05/07/20 12:25 56 104/63 05/07/20 11:39 97.3 56 18 104/63 (77) 98 Intake and Output 05/07/20 05/08/20 19:00 07:00 Intake Total 1320 ml 1080 ml Output Total 400 ml 1100 ml Balance 920 ml -20 ml Intake Oral 1320 ml 1080 ml Output Urine Total 400 ml 1100 ml # Voids 3 3 General Appearance: no acute distress HEENT: normocephalic Respiratory: chest wall non-tender, lungs clear Cardiovascular: normal peripheral pulses, normal rate Abdomen: normal bowel sounds, soft, non tender Current Medications Medications (Trade) Dose Ordered Sig/Mirian Route PRN Reason Start Time Stop Time Status Last Admin Dose Admin Ascorbic Acid (Vitamin C) 500 mg DAILY ORAL 05/06/20 09:00 06/05/20 08:59 05/08/20 09:12 Ferrous Sulfate (Feosol) 325 mg DAILY ORAL 05/06/20 09:00 08/04/20 08:59 05/08/20 09:11 Gabapentin (Neurontin) 100 mg THREE TIMES A DAY ORAL 05/06/20 09:00 06/05/20 08:59 05/08/20 09:12 Propranolol HCl (Inderal) 10 mg THREE TIMES A DAY ORAL 05/06/20 09:00 06/05/20 08:59 05/07/20 12:25 Sertraline HCl (Zoloft) 100 mg DAILY ORAL 05/06/20 09:00 06/05/20 08:59 05/08/20 09:12 Spironolactone (Aldactone) 25 mg DAILY ORAL 05/06/20 09:00 06/05/20 08:59 05/08/20 09:12 Zinc Sulfate (Zinc Sulfate) 220 mg DAILY ORAL 05/06/20 09:00 08/04/20 08:59 05/08/20 09:11 Assessment/Plan Assessment/Plan 1. Nicotine dependence -Patient education on smoking cessation 2. Normoxemia 3. COVID-19 negative (04/30) 4. Pancreatitis - Seen by surgery Respiratory status is stable Saturating well on RA Antonio Gomez MD May 08, 2020 09:44
--- NOTE | 2020-05-08 11:03 | Surgery Progress Note ---
Surgery Progress Note Subjective Additional Comments labs pending sitting up no n/v Objective Last 24 Hour Vital Signs Date Time Temp Pulse Resp B/P (MAP) Pulse Ox O2 Delivery O2 Flow Rate FiO2 05/08/20 09:00 Room Air 05/08/20 09:00 66 118/64 05/08/20 08:00 97.7 66 18 118/64 (82) 98 05/08/20 04:00 98.9 69 18 111/62 (78) 98 05/08/20 00:00 98.5 63 20 104/60 (75) 97 05/07/20 21:05 Room Air 05/07/20 20:00 98.7 59 18 107/63 (78) 97 05/07/20 17:07 56 98/55 05/07/20 16:00 98.0 56 18 98/55 (69) 98 05/07/20 12:25 56 104/63 05/07/20 11:39 97.3 56 18 104/63 (77) 98 I&O Intake and Output 0 05/07/20 05/08/20 19:00 07:00 Intake Total 1320 ml 1080 ml Output Total 400 ml 1100 ml Balance 920 ml -20 ml Intake Oral 1320 ml 1080 ml Output Urine Total 400 ml 1100 ml # Voids 3 3 Dressing: saturated Cardiovascular: RSR Respiratory: clear, decreased breath sounds Abdomen: soft, non-tender, present bowel sounds, non-distended Extremities: edema, no tenderness, no cyanosis Plan Problems: (1) History of cirrhosis (2) Pancreatitis Assessment & Plan: This is a 64-year-old male with known history of cirrhosis and identified to have pancreatitis aggressive encephalopathy admitted for the care management. Labs noted. No current imaging available. Imaging ordered. Ultrasound abdomen. Abdominal distention fluid potentially ascites may need tap. Afebrile hemodynamic stable labs noted shift identified. LFTs noted. Okay for diet from surgical standpoint. Will follow with recommendations as imaging and orders available. Pt presented on admission with Edema Bilat Lower Extremity,Ulcer Medial R tibia. Haemosiderin Stain with Xerotic Skin and scattered hyperkeratotic plaques. Both feet are cool to touch. Wound Medial R lower extremity;just inferior to Knee. Wound is moist,sarai with Biofilm. Small area of Necrosis clockwise along borders @8o'clock. Borders are irregular,and macerated.Wound oozing serous exudate.(L)3.4cm x (W)2.2cm x (D)0.3cm. Mild odor noted. Pt stated having wound for 3months. Dried sanguineous exudate noted to nail matrix of R 1st, 2nd,3rd,4th and 5th metatarsals. Post cleansing ,pt noted to have several small lacerations. In addition, small laceration noted at base, plantar R 1st metatarsal. Pt stated" I confess, I have been using a nail to pick at my toenails." In addition, several linear cuts noted to plantar R Heel. Education provided to pt of risks for infection,or worse secondary to compromised circulation in lower extremities. Pt also given education on skin care to promote skin integrity and preventing ulcerations. Encouraged to keep legs elevated while sitting or while in bed. Tx.Plan: Wash and moisturize both lower extremities Daily and prn. Cleanse wound R lower extremity with Saline. Apply Silvasorb Gel. Apply Maxsorb Extra . Cover with ABD Pad. Wrap with Kerlix from Base of Toes to below Knee Daily and prn. Apply Betadine to Nail Matrixes of toes R foot, Plantar R 1st metatarsal and Plantar R Heel Daily. Elevate Both Lower Extremities with Pillows. (3) Nidia ColeDeclan May 08, 2020 11:03
[2020-05-08 11:31] LABS: HEMATOCRIT 36.8 % (42.0-52.0); HEMOGLOBIN 11.6 G/DL (14.2-18.0); MEAN CORPUSCULAR VOLUME 88 FL (80-99); PLATELET COUNT 80 K/UL (150-450); RED BLOOD COUNT 4.19 M/UL (4.70-6.10); RED CELL DISTRIBUTION WIDTH 17.2 % (11.6-14.8); WHITE BLOOD COUNT 3.1 K/UL (4.8-10.8)
[2020-05-08 11:53] LABS: ALANINE AMINOTRANSFERASE 52 U/L (12-78); ALBUMIN 2.7 G/DL (3.4-5.0); ALBUMIN/GLOBULIN RATIO 0.7 (1.0-2.7); AMYLASE 83 U/L (25-115); ANION GAP 9 mmol/L (5-15); ASPARTATE AMINO TRANSFERASE 71 U/L (15-37); BILIRUBIN,TOTAL 0.6 MG/DL (0.2-1.0); BLOOD UREA NITROGEN 21 mg/dL (7-18); CALCIUM 8.8 MG/DL (8.5-10.1); CARBON DIOXIDE 25 MMOL/L (21-32); CHLORIDE 108 MMOL/L (98-107); CREATININE 1.1 MG/DL (0.55-1.30); SODIUM 142 MMOL/L (136-145)
[2020-05-08 11:57] LABS: ALKALINE PHOSPHATASE 91 U/L (46-116)
[2020-05-08 12:00] VITALS: BP 114/64
[2020-05-08] MEDS: CLOBETASOL 0.05% TOPIC SCH ×2 (12:34→20:00)
[2020-05-08 16:00] VITALS: BP 104/58
--- NOTE | 2020-05-08 18:07 | Internal Med Progress Note ---
Subjective Physician Name Robert Amato Attending Physician Robert Amato M.D. Current Medications Medications (Trade) Dose Ordered Sig/Mirian Route PRN Reason Start Time Stop Time Status Last Admin Dose Admin Ascorbic Acid (Vitamin C) 500 mg DAILY ORAL 05/06/20 09:00 06/05/20 08:59 05/08/20 09:12 Clobetasol Propionate (Temovate) 1 applic TWICE A DAY TOPIC 05/08/20 11:00 08/06/20 10:59 05/08/20 12:34 Ferrous Sulfate (Feosol) 325 mg DAILY ORAL 05/06/20 09:00 08/04/20 08:59 05/08/20 09:11 Gabapentin (Neurontin) 100 mg THREE TIMES A DAY ORAL 05/06/20 09:00 06/05/20 08:59 05/08/20 17:51 Propranolol HCl (Inderal) 10 mg THREE TIMES A DAY ORAL 05/06/20 09:00 06/05/20 08:59 05/07/20 12:25 Sertraline HCl (Zoloft) 100 mg DAILY ORAL 05/06/20 09:00 06/05/20 08:59 05/08/20 09:12 Spironolactone (Aldactone) 25 mg DAILY ORAL 05/06/20 09:00 06/05/20 08:59 05/08/20 09:12 Zinc Sulfate (Zinc Sulfate) 220 mg DAILY ORAL 05/06/20 09:00 08/04/20 08:59 05/08/20 09:11 Allergies: Coded Allergies: No Known Allergies (Unverified , 05/05/20) ROS Limited/Unobtainable: No Constitutional: Reports: weakness HEENT: Denies: no symptoms, eye pain, blurred vision, tearing, double vision, ear pain, ear discharge, nose pain, nose congestion, throat pain, throat swelling, mouth pain, mouth swelling, other Cardiovascular: Denies: no symptoms, chest pain, edema, irregular heart rate, lightheadedness, palpitations, syncope, other Respiratory: Denies: no symptoms, cough, orthopnea, shortness of breath, SOB with excertion, SOB at rest, sputum, stridor, wheezing, other Gastrointestinal/Abdominal: Denies: no symptoms, abdomen distended, abdominal pain, black stools, tarry stools, blood in stool, constipated, diarrhea, difficulty swallowing, nausea, poor appetite, poor fluid intake, rectal bleeding, vomiting, other Genitourinary: Denies: no symptoms, burning, discharge, frequency, flank pain, hematuria, incontinence, pain, urgency, other Neurologic/Psychiatric: Denies: no symptoms, anxiety, depressed, emotional problems, headache, numbness, paresthesia, pre-existing deficit, seizure, tin gling, tremors, weakness, other Subjective Lipase remains elevated no abd pain no nausea Impression: Evidence of hepatic cirrhosis, with coarsened echogenicity and surface nodularity Splenomegaly Cholelithiasis. Negative for dilated ducts Bilateral renal cysts incidentally noted Objective Last Vital Signs Date Time Temp Pulse Resp B/P (MAP) Pulse Ox O2 Delivery O2 Flow Rate FiO2 05/08/20 17:51 53 104/58 05/08/20 16:00 96.8 19 98 05/08/20 09:00 Room Air 05/05/20 13:41 98 General Appearance: no apparent distress, alert EENT: PERRL/EOMI, normal ENT inspection Neck: non-tender, normal alignment Cardiovascular: normal peripheral pulses, normal rate Respiratory/Chest: chest wall non-tender, lungs clear Abdomen: normal bowel sounds, non tender Edema: mild edema Neurologic: alert, oriented x 3 Laboratory Tests Test 05/08/20 10:45 White Blood Count 3.1 K/UL (4.8-10.8) L Red Blood Count 4.19 M/UL (4.70-6.10) L Hemoglobin 11.6 G/DL (14.2-18.0) L Hematocrit 36.8 % (42.0-52.0) L Mean Corpuscular Volume 88 FL (80-99) Mean Corpuscular Hemoglobin 27.7 PG (27.0-31.0) Mean Corpuscular Hemoglobin Concent 31.6 G/DL (32.0-36.0) L Red Cell Distribution Width 17.2 % (11.6-14.8) H Platelet Count 80 K/UL (150-450) L Mean Platelet Volume 8.0 FL (6.5-10.1) Neutrophils (%) (Auto) % (45.0-75.0) Lymphocytes (%) (Auto) % (20.0-45.0) Monocytes (%) (Auto) % (1.0-10.0) Eosinophils (%) (Auto) % (0.0-3.0) Basophils (%) (Auto) % (0.0-2.0) Differential Total Cells Counted 100 Neutrophils % (Manual) 51 % (45-75) Lymphocytes % (Manual) 38 % (20-45) Monocytes % (Manual) 6 % (1-10) Eosinophils % (Manual) 5 % (0-3) H Basophils % (Manual) 0 % (0-2) Band Neutrophils 0 % (0-8) Platelet Estimate Decreased L Platelet Morphology Normal Hypochromasia 1+ Anisocytosis 1+ Sodium Level 142 MMOL/L (136-145) Potassium Level 4.0 MMOL/L (3.5-5.1) Chloride Level 108 MMOL/L (98-107) H Carbon Dioxide Level 25 MMOL/L (21-32) Anion Gap 9 mmol/L (5-15) Blood Urea Nitrogen 21 mg/dL (7-18) H Creatinine 1.1 MG/DL (0.55-1.30) Estimat Glomerular Filtration Rate > 60 mL/min (>60) Glucose Level 96 MG/DL (74-106) Calcium Level 8.8 MG/DL (8.5-10.1) Total Bilirubin 0.6 MG/DL (0.2-1.0) Aspartate Amino Transf (AST/SGOT) 71 U/L (15-37) H Alanine Aminotransferase (ALT/SGPT) 52 U/L (12-78) Alkaline Phosphatase 91 U/L (46-116) Total Protein 6.7 G/DL (6.4-8.2) Albumin 2.7 G/DL (3.4-5.0) L Globulin 4.0 g/dL Albumin/Globulin Ratio 0.7 (1.0-2.7) L Amylase Level 83 U/L (25-115) Lipase 589 U/L (73-393) H Intake and Output 05/07/20 05/08/20 19:00 07:00 Intake Total 1320 ml 1080 ml Output Total 400 ml 1100 ml Balance 920 ml -20 ml Intake Oral 1320 ml 1080 ml Output Urine Total 400 ml 1100 ml # Voids 3 3 Assessment/Plan Assessment/Plan #hepatitis C cirrhosis #Elevated lipase #hypertension #cirrhosis #anemia, #behavioral disorder, - admit inpatient - GI eval - gen surg eval - trend lipase - monitor LFTS - abd US - resume [employer] meds - monitor lytes - propanalol 10 TID - aldactone 25mg daily Time spent 45 min Robert Amato M.D. May 08, 2020 18:07
[2020-05-08 20:00] VITALS: BP 101/54
[2020-05-09] VITALS: BP 106/68
[2020-05-09 04:00] VITALS: BP 110/59
[2020-05-09 07:09] LABS: HEMOGLOBIN 11.2 G/DL (14.2-18.0); MEAN CORPUSCULAR VOLUME 88 FL (80-99); PLATELET COUNT 58 K/UL (150-450); RED BLOOD COUNT 3.97 M/UL (4.70-6.10); RED CELL DISTRIBUTION WIDTH 17.4 % (11.6-14.8); WHITE BLOOD COUNT 2.6 K/UL (4.8-10.8)
[2020-05-09 07:16] LABS: ALANINE AMINOTRANSFERASE 61 U/L (12-78); ALBUMIN 2.6 G/DL (3.4-5.0); ALBUMIN/GLOBULIN RATIO 0.7 (1.0-2.7); ALKALINE PHOSPHATASE 81 U/L (46-116); ANION GAP 8 mmol/L (5-15); ASPARTATE AMINO TRANSFERASE 71 U/L (15-37); BILIRUBIN,TOTAL 0.7 MG/DL (0.2-1.0); BLOOD UREA NITROGEN 21 mg/dL (7-18); CALCIUM 8.9 MG/DL (8.5-10.1); CARBON DIOXIDE 25 MMOL/L (21-32); CHLORIDE 110 MMOL/L (98-107); POTASSIUM 3.5 MMOL/L (3.5-5.1); SODIUM 143 MMOL/L (136-145)
[2020-05-09 08:00] VITALS: BP 110/59
--- NOTE | 2020-05-09 08:21 | Internal Med Progress Note ---
Subjective Physician Name Robert Amato Attending Physician Robert Amato M.D. Current Medications Medications (Trade) Dose Ordered Sig/Mirian Route PRN Reason Start Time Stop Time Status Last Admin Dose Admin Ascorbic Acid (Vitamin C) 500 mg DAILY ORAL 05/06/20 09:00 06/05/20 08:59 05/08/20 09:12 Clobetasol Propionate (Temovate) 1 applic TWICE A DAY TOPIC 05/08/20 11:00 08/06/20 10:59 05/08/20 20:00 Ferrous Sulfate (Feosol) 325 mg DAILY ORAL 05/06/20 09:00 08/04/20 08:59 05/08/20 09:11 Gabapentin (Neurontin) 100 mg THREE TIMES A DAY ORAL 05/06/20 09:00 06/05/20 08:59 05/08/20 17:51 Propranolol HCl (Inderal) 10 mg THREE TIMES A DAY ORAL 05/06/20 09:00 06/05/20 08:59 05/07/20 12:25 Sertraline HCl (Zoloft) 100 mg DAILY ORAL 05/06/20 09:00 06/05/20 08:59 05/08/20 09:12 Spironolactone (Aldactone) 25 mg DAILY ORAL 05/06/20 09:00 06/05/20 08:59 05/08/20 09:12 Zinc Sulfate (Zinc Sulfate) 220 mg DAILY ORAL 05/06/20 09:00 08/04/20 08:59 05/08/20 09:11 Allergies: Coded Allergies: No Known Allergies (Unverified , 05/05/20) ROS Limited/Unobtainable: No Constitutional: Reports: weakness HEENT: Denies: no symptoms, eye pain, blurred vision, tearing, double vision, ear pain, ear discharge, nose pain, nose congestion, throat pain, throat swelling, mouth pain, mouth swelling, other Cardiovascular: Denies: no symptoms, chest pain, edema, irregular heart rate, lightheadedness, palpitations, syncope, other Respiratory: Denies: no symptoms, cough, orthopnea, shortness of breath, SOB with excertion, SOB at rest, sputum, stridor, wheezing, other Gastrointestinal/Abdominal: Denies: no symptoms, abdomen distended, abdominal pain, black stools, tarry stools, blood in stool, constipated, diarrhea, difficulty swallowing, nausea, poor appetite, poor fluid intake, rectal bleeding, vomiting, other Genitourinary: Denies: no symptoms, burning, discharge, frequency, flank pain, hematuria, incontinence, pain, urgency, other Neurologic/Psychiatric: Denies: no symptoms, anxiety, depressed, emotional problems, headache, numbness, paresthesia, pre-existing deficit, seizure, tin gling, tremors, weakness, other Subjective Lipase remains elevated no abd pain no nausea Impression: Evidence of hepatic cirrhosis, with coarsened echogenicity and surface nodularity Splenomegaly Cholelithiasis. Negative for dilated ducts Bilateral renal cysts incidentally noted Objective Last Vital Signs Date Time Temp Pulse Resp B/P (MAP) Pulse Ox O2 Delivery O2 Flow Rate FiO2 05/09/20 04:00 98.5 59 18 110/59 (76) 97 05/08/20 21:00 Room Air 05/05/20 13:41 98 Laboratory Tests Test 05/08/20 10:45 05/09/20 06:30 White Blood Count 3.1 K/UL (4.8-10.8) L 2.6 K/UL (4.8-10.8) L Red Blood Count 4.19 M/UL (4.70-6.10) L 3.97 M/UL (4.70-6.10) L Hemoglobin 11.6 G/DL (14.2-18.0) L 11.2 G/DL (14.2-18.0) L Hematocrit 36.8 % (42.0-52.0) L 35.0 % (42.0-52.0) L Mean Corpuscular Volume 88 FL (80-99) 88 FL (80-99) Mean Corpuscular Hemoglobin 27.7 PG (27.0-31.0) 28.1 PG (27.0-31.0) Mean Corpuscular Hemoglobin Concent 31.6 G/DL (32.0-36.0) L 31.9 G/DL (32.0-36.0) L Red Cell Distribution Width 17.2 % (11.6-14.8) H 17.4 % (11.6-14.8) H Platelet Count 80 K/UL (150-450) L 58 K/UL (150-450) L Mean Platelet Volume 8.0 FL (6.5-10.1) 8.0 FL (6.5-10.1) Neutrophils (%) (Auto) % (45.0-75.0) % (45.0-75.0) Lymphocytes (%) (Auto) % (20.0-45.0) % (20.0-45.0) Monocytes (%) (Auto) % (1.0-10.0) % (1.0-10.0) Eosinophils (%) (Auto) % (0.0-3.0) % (0.0-3.0) Basophils (%) (Auto) % (0.0-2.0) % (0.0-2.0) Differential Total Cells Counted 100 Neutrophils % (Manual) 51 % (45-75) Pending Lymphocytes % (Manual) 38 % (20-45) Pending Monocytes % (Manual) 6 % (1-10) Eosinophils % (Manual) 5 % (0-3) H Basophils % (Manual) 0 % (0-2) Band Neutrophils 0 % (0-8) Platelet Estimate Decreased L Pending Platelet Morphology Normal Pending Hypochromasia 1+ Anisocytosis 1+ Sodium Level 142 MMOL/L (136-145) 143 MMOL/L (136-145) Potassium Level 4.0 MMOL/L (3.5-5.1) 3.5 MMOL/L (3.5-5.1) Chloride Level 108 MMOL/L (98-107) H 110 MMOL/L (98-107) H Carbon Dioxide Level 25 MMOL/L (21-32) 25 MMOL/L (21-32) Anion Gap 9 mmol/L (5-15) 8 mmol/L (5-15) Blood Urea Nitrogen 21 mg/dL (7-18) H 21 mg/dL (7-18) H Creatinine 1.1 MG/DL (0.55-1.30) 1.0 MG/DL (0.55-1.30) Estimat Glomerular Filtration Rate > 60 mL/min (>60) > 60 mL/min (>60) Glucose Level 96 MG/DL (74-106) 120 MG/DL (74-106) H Calcium Level 8.8 MG/DL (8.5-10.1) 8.9 MG/DL (8.5-10.1) Total Bilirubin 0.6 MG/DL (0.2-1.0) 0.7 MG/DL (0.2-1.0) Aspartate Amino Transf (AST/SGOT) 71 U/L (15-37) H 71 U/L (15-37) H Alanine Aminotransferase (ALT/SGPT) 52 U/L (12-78) 61 U/L (12-78) Alkaline Phosphatase 91 U/L (46-116) 81 U/L (46-116) Total Protein 6.7 G/DL (6.4-8.2) 6.5 G/DL (6.4-8.2) Albumin 2.7 G/DL (3.4-5.0) L 2.6 G/DL (3.4-5.0) L Globulin 4.0 g/dL 3.9 g/dL Albumin/Globulin Ratio 0.7 (1.0-2.7) L 0.7 (1.0-2.7) L Amylase Level 83 U/L (25-115) Lipase 589 U/L (73-393) H 416 U/L (73-393) H Intake and Output 05/08/20 05/09/20 19:00 07:00 Intake Total 1180 ml Output Total 1300 ml Balance -120 ml Intake Oral 1180 ml Output Urine Total 1300 ml # Voids 2 2 Objective General appearance: alert, cooperative, no distress, appears stated age Head: Normocephalic, without obvious abnormality, atraumatic Eyes: conjunctivae/corneas clear. PERRL, EOM's intact. Fundi benign Throat: Lips, mucosa, and tongue normal. Teeth and gums normal Neck: supple, symmetrical, trachea midline, no adenopathy, thyroid: not enlarged, symmetric, no tenderness/mass/nodules, no carotid bruit and no JVD Lungs: clear to auscultation bilaterally Heart: regular rate and rhythm, S1, S2 normal, no murmur, click, rub or gallop Abdomen: soft, non-tender. Bowel sounds normal. No masses, no organomegaly Extremities: extremities normal, atraumatic, no cyanosis or edema Pulses: 2+ and symmetric Skin: Skin color, texture, turgor normal. No rashes or lesions Neurologic: Grossly normal Assessment/Plan Assessment/Plan #hepatitis C cirrhosis #Elevated lipase #hypertension #cirrhosis #anemia, #behavioral disorder, - admit inpatient - GI eval - gen surg eval - trend lipase - monitor LFTS - abd US - resume [employer] meds - monitor lytes - propanalol 10 TID - aldactone 25mg daily Time spent 45 min Robert Amato M.D. May 09, 2020 08:21
[2020-05-09] MEDS: Propranolol 10mg tab ORAL SCH ×3 (09:04→17:34)
[2020-05-09] MEDS: Sertraline 100mg tab ORAL SCH (09:05)
[2020-05-09] MEDS: CLOBETASOL 0.05% TOPIC SCH ×2 (09:05→17:34)
[2020-05-09] MEDS: Zinc Sulfate 220mg ORAL SCH (09:05)
[2020-05-09] MEDS: Ascorbic Acid 500mg tab ORAL SCH (09:05)
[2020-05-09] MEDS: Spironolactone 25mg tab ORAL SCH (09:05)
--- NOTE | 2020-05-09 09:46 | Pulmonology Progress Note ---
Subjective ROS Limited/Unobtainable: No Interval Events: None new reported Constitutional: Reports: no symptoms HEENT: Repors: no symptoms Respiratory: Reports: no symptoms Cardiovascular: Reports: no symptoms Gastrointestinal/Abdominal: Reports: no symptoms Genitourinary: Reports: no symptoms Neurologic: Reports: no symptoms Allergies: Coded Allergies: No Known Allergies (Unverified , 05/05/20) Objective Last 24 Hour Vital Signs Date Time Temp Pulse Resp B/P (MAP) Pulse Ox O2 Delivery O2 Flow Rate FiO2 05/09/20 09:04 58 105/64 05/09/20 04:00 98.5 59 18 110/59 (76) 97 05/09/20 00:00 98.2 64 18 106/68 (81) 96 05/08/20 21:00 Room Air 05/08/20 20:00 97.7 54 20 101/54 (70) 99 05/08/20 17:51 53 104/58 05/08/20 16:00 96.8 53 19 104/58 (73) 98 05/08/20 13:00 58 114/64 05/08/20 12:00 98.1 58 17 114/64 (81) 99 Intake and Output 05/08/20 05/09/20 19:00 07:00 Intake Total 1180 ml Output Total 1300 ml Balance -120 ml Intake Oral 1180 ml Output Urine Total 1300 ml # Voids 2 2 General Appearance: no acute distress HEENT: normocephalic Respiratory: chest wall non-tender, lungs clear Cardiovascular: normal peripheral pulses, normal rate Abdomen: normal bowel sounds, soft, non tender Laboratory Tests 05/08/20 10:45: White Blood Count 3.1L, Red Blood Count 4.19L, Hemoglobin 11.6L, Hematocrit 36.8L, Mean Corpuscular Volume 88, Mean Corpuscular Hemoglobin 27.7, Mean Corpuscular Hemoglobin Concent 31.6L, Red Cell Distribution Width 17.2H, Platelet Count 80L, Mean Platelet Volume 8.0, Neutrophils (%) (Auto) , Lymphocytes (%) (Auto) , Monocytes (%) (Auto) , Eosinophils (%) (Auto) , Basophils (%) (Auto) , Differential Total Cells Counted 100, Neutrophils % (Manual) 51, Lymphocytes % (Manual) 38, Monocytes % (Manual) 6, Eosinophils % (Manual) 5H, Basophils % (Manual) 0, Band Neutrophils 0, Platelet Estimate DecreasedL, Platelet Morphology Normal, Hypochromasia 1+, Anisocytosis 1+, Sodium Level 142, Potassium Level 4.0, Chloride Level 108H, Carbon Dioxide Level 25, Anion Gap 9, Blood Urea Nitrogen 21H, Creatinine 1.1, Estimat Glomerular Filtration Rate > 60, Glucose Level 96, Calcium Level 8.8, Total Bilirubin 0.6, Aspartate Amino Transf (AST/SGOT) 71H, Alanine Aminotransferase (ALT/SGPT) 52, Alkaline Phosphatase 91, Total Protein 6.7, Albumin 2.7L, Globulin 4.0, Albumin/Globulin Ratio 0.7L, Amylase Level 83, Lipase 589H 05/09/20 06:30: White Blood Count 2.6L, Red Blood Count 3.97L, Hemoglobin 11.2L, Hematocrit 35.0L, Mean Corpuscular Volume 88, Mean Corpuscular Hemoglobin 28.1, Mean Corpuscular Hemoglobin Concent 31.9L, Red Cell Distribution Width 17.4H, Platelet Count 58L, Mean Platelet Volume 8.0, Neutrophils (%) (Auto) , L ymphocytes (%) (Auto) , Monocytes (%) (Auto) , Eosinophils (%) (Auto) , Basophils (%) (Auto) , Differential Total Cells Counted 100, Neutrophils % (Manual) 46, Lymphocytes % (Manual) 36, Monocytes % (Manual) 10, Eosinophils % (Manual) 7H, Basophils % (Manual) 1, Band Neutrophils 0, Platelet Estimate DecreasedL, Platelet Morphology Normal, Hypochromasia 1+, Anisocytosis 1+, Sodium Level 143, Potassium Level 3.5, Chloride Level 110H, Carbon Dioxide Level 25, Anion Gap 8, Blood Urea Nitrogen 21H, Creatinine 1.0, Estimat Glomerular Filtration Rate > 60, Glucose Level 120H, Calcium Level 8.9, Total Bilirubin 0.7, Aspartate Amino Transf (AST/SGOT) 71H, Alanine Aminotransferase (ALT/SGPT) 61, Alkaline Phosphatase 81, Total Protein 6.5, Albumin 2.6L, Globulin 3.9, Albumin/Globulin Ratio 0.7L, Lipase 416H Current Medications Medications (Trade) Dose Ordered Sig/Mirian Route PRN Reason Start Time Stop Time Status Last Admin Dose Admin Ascorbic Acid (Vitamin C) 500 mg DAILY ORAL 05/06/20 09:00 06/05/20 08:59 05/09/20 09:05 Clobetasol Propionate (Temovate) 1 applic TWICE A DAY TOPIC 05/08/20 11:00 08/06/20 10:59 05/09/20 09:05 Ferrous Sulfate (Feosol) 325 mg DAILY ORAL 05/06/20 09:00 08/04/20 08:59 05/09/20 09:05 Gabapentin (Neurontin) 100 mg THREE TIMES A DAY ORAL 05/06/20 09:00 06/05/20 08:59 05/09/20 09:05 Propranolol HCl (Inderal) 10 mg THREE TIMES A DAY ORAL 05/06/20 09:00 06/05/20 08:59 05/09/20 09:04 Sertraline HCl (Zoloft) 100 mg DAILY ORAL 05/06/20 09:00 06/05/20 08:59 05/09/20 09:05 Spironolactone (Aldactone) 25 mg DAILY ORAL 05/06/20 09:00 06/05/20 08:59 05/09/20 09:05 Zinc Sulfate (Zinc Sulfate) 220 mg DAILY ORAL 05/06/20 09:00 08/04/20 08:59 05/09/20 09:05 Assessment/Plan Assessment/Plan 1. Nicotine dependence -Patient education on smoking cessation 2. Normoxemia 3. COVID-19 negative (04/30) 4. Pancreatitis - Seen by surgery Respiratory status is stable Saturating well on RA The care for this patient was discussed with my supervising physician Time spent for this case was approximately 31 mionAnthony Heard May 09, 2020 09:46
--- NOTE | 2020-05-09 11:30 | Surgery Progress Note ---
Surgery Progress Note Subjective Symptoms: improved, tolerating diet, voiding well, passing flatus, pain decreased Objective Last 24 Hour Vital Signs Date Time Temp Pulse Resp B/P (MAP) Pulse Ox O2 Delivery O2 Flow Rate FiO2 05/09/20 09:04 58 105/64 05/09/20 04:00 98.5 59 18 110/59 (76) 97 05/09/20 00:00 98.2 64 18 106/68 (81) 96 05/08/20 21:00 Room Air 05/08/20 20:00 97.7 54 20 101/54 (70) 99 05/08/20 17:51 53 104/58 05/08/20 16:00 96.8 53 19 104/58 (73) 98 05/08/20 13:00 58 114/64 05/08/20 12:00 98.1 58 17 114/64 (81) 99 I&O Intake and Output 05/08/20 05/09/20 19:00 07:00 Intake Total 1180 ml Output Total 1300 ml Balance -120 ml Intake Oral 1180 ml Output Urine Total 1300 ml # Voids 2 2 Cardiovascular: RSR Respiratory: clear Abdomen: soft, flat, non-tender, present bowel sounds, non-distended Extremities: no edema, no tenderness, no cyanosis Laboratory Tests Test 05/09/20 06:30 White Blood Count 2.6 K/UL (4.8-10.8) L Red Blood Count 3.97 M/UL (4.70-6.10) L Hemoglobin 11.2 G/DL (14.2-18.0) L Hematocrit 35.0 % (42.0-52.0) L Mean Corpuscular Volume 88 FL (80-99) Mean Corpuscular Hemoglobin 28.1 PG (27.0-31.0) Mean Corpuscular Hemoglobin Concent 31.9 G/DL (32.0-36.0) L Red Cell Distribution Width 17.4 % (11.6-14.8) H Platelet Count 58 K/UL (150-450) L Mean Platelet Volume 8.0 FL (6.5-10.1) Neutrophils (%) (Auto) % (45.0-75.0) Lymphocytes (%) (Auto) % (20.0-45.0) Monocytes (%) (Auto) % (1.0-10.0) Eosinophils (%) (Auto) % (0.0-3.0) Basophils (%) (Auto) % (0.0-2.0) Differential Total Cells Counted 100 Neutrophils % (Manual) 46 % (45-75) Lymphocytes % (Manual) 36 % (20-45) Monocytes % (Manual) 10 % (1-10) Eosinophils % (Manual) 7 % (0-3) H Basophils % (Manual) 1 % (0-2) Band Neutrophils 0 % (0-8) Platelet Estimate Decreased L Platelet Morphology Normal Hypochromasia 1+ Anisocytosis 1+ Sodium Level 143 MMOL/L (136-145) Potassium Level 3.5 MMOL/L (3.5-5.1) Chloride Level 110 MMOL/L (98-107) H Carbon Dioxide Level 25 MMOL/L (21-32) Anion Gap 8 mmol/L (5-15) Blood Urea Nitrogen 21 mg/dL (7-18) H Creatinine 1.0 MG/DL (0.55-1.30) Estimat Glomerular Filtration Rate > 60 mL/min (>60) Glucose Level 120 MG/DL (74-106) H Calcium Level 8.9 MG/DL (8.5-10.1) Total Bilirubin 0.7 MG/DL (0.2-1.0) Aspartate Amino Transf (AST/SGOT) 71 U/L (15-37) H Alanine Aminotransferase (ALT/SGPT) 61 U/L (12-78) Alkaline Phosphatase 81 U/L (46-116) Total Protein 6.5 G/DL (6.4-8.2) Albumin 2.6 G/DL (3.4-5.0) L Globulin 3.9 g/dL Albumin/Globulin Ratio 0.7 (1.0-2.7) L Lipase 416 U/L (73-393) H Plan Problems: (1) History of cirrhosis (2) Pancreatitis Assessment & Plan: This is a 64-year-old male with known history of cirrhosis and identified to have pancreatitis aggressive encephalopathy admitted for the care management. Labs noted. No current imaging available. Imaging ordered. Ultrasound abdomen. Abdominal distention fluid potentially ascites may need tap. Afebrile hemodynamic stable labs noted shift identified. LFTs noted. Okay for diet from surgical standpoint. Will follow with recommendations as imaging and orders available. Pt presented on admission with Edema Bilat Lower Extremity,Ulcer Medial R tibia. Haemosiderin Stain with Xerotic Skin and scattered hyperkeratotic plaques. Both feet are cool to touch. Wound Medial R lower extremity;just inferior to Knee. Wound is moist,sarai with Biofilm. Small area of Necrosis clockwise along borders @8o'clock. Borders are irregular,and macerated.Wound oozing serous exudate.(L)3.4cm x (W)2.2cm x (D)0.3cm. Mild odor noted. Pt stated having wound for 3months. Dried sanguineous exudate noted to nail matrix of R 1st, 2nd,3rd,4th and 5th metatarsals. Post cleansing ,pt noted to have several small lacerations. In addition, small laceration noted at base, plantar R 1st metatarsal. Pt stated" I confess, I have been using a nail to pick at my toenails." In addition, several linear cuts noted to plantar R Heel. Education provided to pt of risks for infection,or worse secondary to compromised circulation in lower extremities. Pt also given education on skin care to promote skin integrity and preventing ulcerations. Encouraged to keep legs elevated while sitting or while in bed. Tx.Plan: Wash and moisturize both lower extremities Daily and prn. Cleanse wound R lower extremity with Saline. Apply Silvasorb Gel. Apply Maxsorb Extra . Cover with ABD Pad. Wrap with Kerlix from Base of Toes to below Knee Daily and prn. Apply Betadine to Nail Matrixes of toes R foot, Plantar R 1st metatarsal and Plantar R Heel Daily. Elevate Both Lower Extremities with Pillows. (3) Encephalopathy Declan Cole May 09, 2020 11:30
[2020-05-09 12:00] VITALS: BP 106/65
--- NOTE | 2020-05-09 13:51 | General Progress Note ---
Subjective ROS Limited/Unobtainable: Yes Allergies: Coded Allergies: No Known Allergies (Unverified , 05/05/20) Objective Last 24 Hour Vital Signs Date Time Temp Pulse Resp B/P (MAP) Pulse Ox O2 Delivery O2 Flow Rate FiO2 05/09/20 09:04 58 105/64 05/09/20 04:00 98.5 59 18 110/59 (76) 97 05/09/20 00:00 98.2 64 18 106/68 (81) 96 05/08/20 21:00 Room Air 05/08/20 20:00 97.7 54 20 101/54 (70) 99 05/08/20 17:51 53 104/58 05/08/20 16:00 96.8 53 19 104/58 (73) 98 Intake and Output 05/08/20 05/09/20 19:00 07:00 Intake Total 1180 ml Output Total 1300 ml Balance -120 ml Intake Oral 1180 ml Output Urine Total 1300 ml # Voids 2 2 Laboratory Tests 05/09/20 06:30: White Blood Count 2.6L, Red Blood Count 3.97L, Hemoglobin 11.2L, Hematocrit 35.0L, Mean Corpuscular Volume 88, Mean Corpuscular Hemoglobin 28.1, Mean Corpuscular Hemoglobin Concent 31.9L, Red Cell Distribution Width 17.4H, Platelet Count 58L, Mean Platelet Volume 8.0, Neutrophils (%) (Auto) , Lymphocytes (%) (Auto) , Monocytes (%) (Auto) , Eosinophils (%) (Auto) , Basophils (%) (Auto) , Differential Total Cells Counted 100, Neutrophils % (Manual) 46, Lymphocytes % (Manual) 36, Monocytes % (Manual) 10, Eosinophils % (Manual) 7H, Basophils % (Manual) 1, Band Neutrophils 0, Platelet Estimate DecreasedL, Platelet Morphology Normal, Hypochromasia 1+, Anisocytosis 1+, Sodium Level 143, Potassium Level 3.5, Chloride Level 110H, Carbon Dioxide Level 25, Anion Gap 8, Blood Urea Nitrogen 21H, Creatinine 1.0, Estimat Glomerular F iltration Rate > 60, Glucose Level 120H, Calcium Level 8.9, Total Bilirubin 0.7, Aspartate Amino Transf (AST/SGOT) 71H, Alanine Aminotransferase (ALT/SGPT) 61, Alkaline Phosphatase 81, Total Protein 6.5, Albumin 2.6L, Globulin 3.9, Albumin/Globulin Ratio 0.7L, Lipase 416H Height (Feet): 5 Height (Inches): 9.00 Weight (Pounds): 217 General Appearance: no apparent distress EENT: normal ENT inspection Neck: normal alignment Cardiovascular: normal rate Respiratory/Chest: lungs clear Abdomen: normal bowel sounds, non tender, soft Extremities: non-tender Assessment/Plan Problem List: (1) History of cirrhosis ICD Codes: Z87.19 - Personal history of other diseases of the digestive system SNOMED: 949625294 (2) Pancreatitis ICD Codes: K85.90 - Acute pancreatitis without necrosis or infection, unspecified SNOMED: 15037386 (3) Encephalopathy ICD Codes: G93.40 - Encephalopathy, unspecified SNOMED: 00622255 (4) Cholelithiasis ICD Codes: K80.20 - Calculus of gallbladder without cholecystitis without obstruction SNOMED: 366104228 Assessment/Plan: us reviewed on diet check hepatitis panel Amminia level will Clarence Mitchell MD May 09, 2020 13:50
[2020-05-09 16:00] VITALS: BP 108/77
[2020-05-09 20:00] VITALS: BP 105/60
[2020-05-10] VITALS: BP 100/56
[2020-05-10 04:00] VITALS: BP 101/60
[2020-05-10 06:39] LABS: HEMOGLOBIN 11.6 G/DL (14.2-18.0); MEAN CORPUSCULAR VOLUME 87 FL (80-99); PLATELET COUNT 65 K/UL (150-450); RED BLOOD COUNT 4.27 M/UL (4.70-6.10); RED CELL DISTRIBUTION WIDTH 17.3 % (11.6-14.8); WHITE BLOOD COUNT 3.5 K/UL (4.8-10.8)
[2020-05-10 06:45] LABS: INR 1.3 (0.9-1.1)
[2020-05-10 06:47] LABS: ALANINE AMINOTRANSFERASE 59 U/L (12-78); ALBUMIN 2.6 G/DL (3.4-5.0); ALBUMIN/GLOBULIN RATIO 0.7 (1.0-2.7); ALKALINE PHOSPHATASE 81 U/L (46-116); AMYLASE 76 U/L (25-115); ANION GAP 7 mmol/L (5-15); ASPARTATE AMINO TRANSFERASE 75 U/L (15-37); BILIRUBIN,TOTAL 0.8 MG/DL (0.2-1.0); BLOOD UREA NITROGEN 20 mg/dL (7-18); CALCIUM 8.9 MG/DL (8.5-10.1); CARBON DIOXIDE 24 MMOL/L (21-32); CHLORIDE 107 MMOL/L (98-107); CREATININE 1.1 MG/DL (0.55-1.30); POTASSIUM 3.7 MMOL/L (3.5-5.1); SODIUM 138 MMOL/L (136-145)
[2020-05-10 08:00] VITALS: BP 98/60
--- NOTE | 2020-05-10 08:18 | Pulmonology Progress Note ---
Subjective ROS Limited/Unobtainable: Yes Interval Events: None new reported Constitutional: Reports: no symptoms HEENT: Repors: no symptoms Respiratory: Reports: no symptoms Cardiovascular: Reports: no symptoms Gastrointestinal/Abdominal: Reports: no symptoms Genitourinary: Reports: no symptoms Neurologic: Reports: no symptoms Allergies: Coded Allergies: No Known Allergies (Unverified , 05/05/20) Objective Last 24 Hour Vital Signs Date Time Temp Pulse Resp B/P (MAP) Pulse Ox O2 Delivery O2 Flow Rate FiO2 05/10/20 04:00 98.2 52 18 101/60 (74) 96 05/10/20 00:00 97.8 58 18 100/56 (71) 96 05/09/20 20:53 Room Air 05/09/20 20:00 97.9 60 18 105/60 (75) 96 05/09/20 17:30 50 108/77 05/09/20 16:00 98.2 50 18 108/77 (87) 96 05/09/20 12:00 97.9 59 20 106/65 (79) 96 05/09/20 09:04 58 105/64 05/09/20 09:00 Room Air Intake and Output 05/09/20 05/10/20 19:00 07:00 Intake Total 720 ml 400 ml Balance 720 ml 400 ml Intake Oral 720 ml 400 ml # Voids 3 General Appearance: no acute distress HEENT: normocephalic Respiratory: chest wall non-tender, lungs clear Cardiovascular: normal peripheral pulses, normal rate Abdomen: normal bowel sounds, soft, non tender Laboratory Tests 05/10/20 06:10: White Blood Count 3.5L, Red Blood Count 4.27L, Hemoglobin 11.6L, Hematocrit 37.0L, Mean Corpuscular Volume 87, Mean Corpuscular Hemoglobin 27.2, Mean Corpuscular Hemoglobin Concent 31.5L, Red Cell Distribution Width 17.3H, Platelet Count 65L, Mean Platelet Volume 9.3, Neutrophils (%) (Auto) , Lymphocytes (%) (Auto) , Monocytes (%) (Auto) , Eosinophils (%) (Auto) , Basophils (%) (Auto) , Neutrophils % (Manual) [Pending], Lymphocytes % (Manual) [Pending], Platelet Estimate [Pending], Platelet Morphology [Pending], Prothrombin Time 13.7H, Prothromb Time International Ratio 1.3H, Activated Partial Thromboplast Time 33, Sodium Level 138, Potassium Level 3.7, Chloride Level 107, Carbon Dioxide Level 24, Anion Gap 7, Blood Urea Nitrogen 20H, Creatinine 1.1, Estimat Glomerular Filtration Rate > 60, Glucose Level 86, Calcium Level 8.9, Total Bilirubin 0.8, Aspartate Amino Transf (AST/SGOT) 75H, Alanine Aminotransferase (ALT/SGPT) 59, Alkaline Phosphatase 81, Ammonia 68H, Total Protein 6.3L, Albumin 2.6L, Globulin 3.7, Albumin/Globulin Ratio 0.7L, Amylase Level 76, Lipase 396H, Hepatitis A IgM Antibody [Pending], Hepatitis B Surface Antigen [Pending], Hepatitis B Core IgM Antibody [Pending], Hepatitis C Antibody [Pending] Current Medications Medications (Trade) Dose Ordered Sig/Mirian Route PRN Reason Start Time Stop Time Status Last Admin Dose Admin Ascorbic Acid (Vitamin C) 500 mg DAILY ORAL 05/06/20 09:00 06/05/20 08:59 05/09/20 09:05 Clobetasol Propionate (Temovate) 1 applic TWICE A DAY TOPIC 05/08/20 11:00 08/06/20 10:59 05/09/20 17:34 Ferrous Sulfate (Feosol) 325 mg DAILY ORAL 05/06/20 09:00 08/04/20 08:59 05/09/20 09:05 Gabapentin (Neurontin) 100 mg THREE TIMES A DAY ORAL 05/06/20 09:00 06/05/20 08:59 05/09/20 17:30 Propranolol HCl (Inderal) 10 mg THREE TIMES A DAY ORAL 05/06/20 09:00 06/05/20 08:59 05/09/20 17:30 Sertraline HCl (Zoloft) 100 mg DAILY ORAL 05/06/20 09:00 06/05/20 08:59 05/09/20 09:05 Spironolactone (Aldactone) 25 mg DAILY ORAL 05/06/20 09:00 06/05/20 08:59 05/09/20 09:05 Zinc Sulfate (Zinc Sulfate) 220 mg DAILY ORAL 05/06/20 09:00 08/04/20 08:59 05/09/20 09:05 Assessment/Plan Assessment/Plan 1. Nicotine dependence -Patient education on smoking cessation 2. Normoxemia 3. COVID-19 negative (04/30) 4. Pancreatitis - Seen by surgery, GI - tolerating diet Respiratory status is stable Saturating well on RA Noted plan for discharge Medically stable for discharge from pulmonary standpoint The care for this patient was discussed with my supervising physician Time spent for this case was approximately 31 mionAnthony Heard May 10, 2020 08:18
[2020-05-10] MEDS: Spironolactone 25mg tab ORAL SCH (09:00)
[2020-05-10] MEDS: Propranolol 10mg tab ORAL SCH ×3 (09:00→18:00)
[2020-05-10] MEDS: Sertraline 100mg tab ORAL SCH (09:25)
[2020-05-10] MEDS: Ascorbic Acid 500mg tab ORAL SCH (09:26)
[2020-05-10] MEDS: CLOBETASOL 0.05% TOPIC SCH ×2 (09:26→18:00)
[2020-05-10] MEDS: Zinc Sulfate 220mg ORAL SCH (09:26)
--- NOTE | 2020-05-10 09:43 | General Progress Note ---
Subjective ROS Limited/Unobtainable: Yes Allergies: Coded Allergies: No Known Allergies (Unverified , 05/05/20) Objective Last 24 Hour Vital Signs Date Time Temp Pulse Resp B/P (MAP) Pulse Ox O2 Delivery O2 Flow Rate FiO2 05/10/20 09:00 52 101/60 05/10/20 04:00 98.2 52 18 101/60 (74) 96 05/10/20 00:00 97.8 58 18 100/56 (71) 96 05/09/20 20:53 Room Air 05/09/20 20:00 97.9 60 18 105/60 (75) 96 05/09/20 17:30 50 108/77 05/09/20 16:00 98.2 50 18 108/77 (87) 96 05/09/20 12:00 97.9 59 20 106/65 (79) 96 Intake and Output 05/09/20 05/10/20 19:00 07:00 Intake Total 720 ml 400 ml Balance 720 ml 400 ml Intake Oral 720 ml 400 ml # Voids 3 Laboratory Tests 05/10/20 06:10: White Blood Count 3.5L, Red Blood Count 4.27L, Hemoglobin 11.6L, Hematocrit 37.0L, Mean Corpuscular Volume 87, Mean Corpuscular Hemoglobin 27.2, Mean Corpuscular Hemoglobin Concent 31.5L, Red Cell Distribution Width 17.3H, Platelet Count 65L, Mean Platelet Volume 9.3, Neutrophils (%) (Auto) , Lymphocytes (%) (Auto) , Monocytes (%) (Auto) , Eosinophils (%) (Auto) , Basophils (%) (Auto) , Differential Total Cells Counted 100, Neutrophils % (Manual) 55, Lymphocytes % (Manual) 30, Monocytes % (Manual) 10, Eosinophils % (Manual) 5H, Basophils % (Manual) 0, Band Neutrophils 0, Platelet Estimate DecreasedL, Platelet Morphology Normal, Hypochromasia 1+, Anisocytosis 1+, Prothrombin Time 13.7H, Prothromb Time International Ratio 1.3H, Activated Partial Thromboplast Time 33, Sodium Level 138, Potassium Level 3.7, Chloride Le harris 107, Carbon Dioxide Level 24, Anion Gap 7, Blood Urea Nitrogen 20H, Creatinine 1.1, Estimat Glomerular Filtration Rate > 60, Glucose Level 86, Calcium Level 8.9, Total Bilirubin 0.8, Aspartate Amino Transf (AST/SGOT) 75H, Alanine Aminotransferase (ALT/SGPT) 59, Alkaline Phosphatase 81, Ammonia 68H, Total Protein 6.3L, Albumin 2.6L, Globulin 3.7, Albumin/Globulin Ratio 0.7L, Amylase Level 76, Lipase 396H, Hepatitis A IgM Antibody [Pending], Hepatitis B Surface Antigen [Pending], Hepatitis B Core IgM Antibody [Pending], Hepatitis C Antibody [Pending] Height (Feet): 5 Height (Inches): 9.00 Weight (Pounds): 217 General Appearance: no apparent distress EENT: normal ENT inspection Neck: supple Cardiovascular: normal rate Respiratory/Chest: decreased breath sounds Abdomen: normal bowel sounds, non tender, soft Extremities: non-tender Assessment/Plan Problem List: (1) History of cirrhosis ICD Codes: Z87.19 - Personal history of other diseases of the digestive system SNOMED: 861908931 (2) Pancreatitis ICD Codes: K85.90 - Acute pancreatitis without necrosis or infection, unspecified SNOMED: 39544167 (3) Encephalopathy ICD Codes: G93.40 - Encephalopathy, unspecified SNOMED: 27549106 (4) Cholelithiasis ICD Codes: K80.20 - Calculus of gallbladder without cholecystitis without obstruction SNOMED: 869485317 Assessment/Plan: us reviewed on diet check hepatitis panel start lactulose will Clarence Mitchell MD May 10, 2020 09:43
[2020-05-10 12:00] VITALS: BP 105/65
--- NOTE | 2020-05-10 13:10 | Surgery Progress Note ---
Surgery Progress Note Subjective Symptoms: improved, pain absent, tolerating diet Objective Last 24 Hour Vital Signs Date Time Temp Pulse Resp B/P (MAP) Pulse Ox O2 Delivery O2 Flow Rate FiO2 05/10/20 12:42 53 105/65 05/10/20 12:00 97.5 53 19 105/65 (78) 98 05/10/20 09:00 Room Air 05/10/20 09:00 52 101/60 05/10/20 08:00 98.4 62 19 98/60 (73) 98 05/10/20 04:00 98.2 52 18 101/60 (74) 96 05/10/20 00:00 97.8 58 18 100/56 (71) 96 05/09/20 20:53 Room Air 05/09/20 20:00 97.9 60 18 105/60 (75) 96 05/09/20 17:30 50 108/77 05/09/20 16:00 98.2 50 18 108/77 (87) 96 I&O Intake and Output 0 05/09/20 05/10/20 19:00 07:00 Intake Total 720 ml 400 ml Balance 720 ml 400 ml Intake Oral 720 ml 400 ml # Voids 3 Cardiovascular: RSR Respiratory: clear Abdomen: soft, non-tender, present bowel sounds Extremities: no edema, no tenderness, no cyanosis Laboratory Tests Test 05/10/20 06:10 White Blood Count 3.5 K/UL (4.8-10.8) L Red Blood Count 4.27 M/UL (4.70-6.10) L Hemoglobin 11.6 G/DL (14.2-18.0) L Hematocrit 37.0 % (42.0-52.0) L Mean Corpuscular Volume 87 FL (80-99) Mean Corpuscular Hemoglobin 27.2 PG (27.0-31.0) Mean Corpuscular Hemoglobin Concent 31.5 G/DL (32.0-36.0) L Red Cell Distribution Width 17.3 % (11.6-14.8) H Platelet Count 65 K/UL (150-450) L Mean Platelet Volume 9.3 FL (6.5-10.1) Neutrophils (%) (Auto) % (45.0-75.0) Lymphocytes (%) (Auto) % (20.0-45.0) Monocytes (%) (Auto) % (1.0-10.0) Eosinophils (%) (Auto) % (0.0-3.0) Basophils (%) (Auto) % (0.0-2.0) Differential Total Cells Counted 100 Neutrophils % (Manual) 55 % (45-75) Lymphocytes % (Manual) 30 % (20-45) Monocytes % (Manual) 10 % (1-10) Eosinophils % (Manual) 5 % (0-3) H Basophils % (Manual) 0 % (0-2) Band Neutrophils 0 % (0-8) Platelet Estimate Decreased L Platelet Morphology Normal Hypochromasia 1+ Anisocytosis 1+ Prothrombin Time 13.7 SEC (9.30-11.50) H Prothromb Time International Ratio 1.3 (0.9-1.1) H Activated Partial Thromboplast Time 33 SEC (23-33) Sodium Level 138 MMOL/L (136-145) Potassium Level 3.7 MMOL/L (3.5-5.1) Chloride Level 107 MMOL/L (98-107) Carbon Dioxide Level 24 MMOL/L (21-32) Anion Gap 7 mmol/L (5-15) Blood Urea Nitrogen 20 mg/dL (7-18) H Creatinine 1.1 MG/DL (0.55-1.30) Estimat Glomerular Filtration Rate > 60 mL/min (>60) Glucose Level 86 MG/DL (74-106) Calcium Level 8.9 MG/DL (8.5-10.1) Total Bilirubin 0.8 MG/DL (0.2-1.0) Aspartate Amino Transf (AST/SGOT) 75 U/L (15-37) H Alanine Aminotransferase (ALT/SGPT) 59 U/L (12-78) Alkaline Phosphatase 81 U/L (46-116) Ammonia 68 umol/L (11-32) H Total Protein 6.3 G/DL (6.4-8.2) L Albumin 2.6 G/DL (3.4-5.0) L Globulin 3.7 g/dL Albumin/Globulin Ratio 0.7 (1.0-2.7) L Amylase Level 76 U/L (25-115) Lipase 396 U/L (73-393) H Hepatitis A IgM Antibody Pending Hepatitis B Surface Antigen Pending Hepatitis B Core IgM Antibody Pending Hepatitis C Antibody Pending Plan Problems: (1) History of cirrhosis (2) Pancreatitis Assessment & Plan: This is a 64-year-old male with known history of cirrhosis and identified to have pancreatitis aggressive encephalopathy admitted for the care management. Labs noted. No current imaging available. Imaging ordered. Ultrasound abdomen. Abdominal distention fluid potentially ascites may need tap. Afebrile hemodynamic stable labs noted shift identified. LFTs noted. O michael for diet from surgical standpoint. Will follow with recommendations as imaging and orders available. Pt presented on admission with Edema Bilat Lower Extremity,Ulcer Medial R tibia. Haemosiderin Stain with Xerotic Skin and scattered hyperkeratotic plaques. Both feet are cool to touch. Wound Medial R lower extremity;just inferior to Knee. Wound is moist,sarai with Biofilm. Small area of Necrosis clockwise along borders @8o'clock. Borders are irregular,and macerated.Wound oozing serous exudate.(L)3.4cm x (W)2.2cm x (D)0.3cm. Mild odor noted. Pt stated having wound for 3months. Dried sanguineous exudate noted to nail matrix of R 1st, 2nd,3rd,4th and 5th metatarsals. Post cleansing ,pt noted to have several small lacerations. In addition, small laceration noted at base, plantar R 1st metatarsal. Pt stated" I confess, I have been using a nail to pick at my toenails." In addition, several linear cuts noted to plantar R Heel. Education provided to pt of risks for infection,or worse secondary to compromised circulation in lower extremities. Pt also given education on skin care to promote skin integrity and preventing ulcerations. Encouraged to keep legs elevated while sitting or while in bed. Tx.Plan: Wash and moisturize both lower extremities Daily and prn. Cleanse wound R lower extremity with Saline. Apply Silvasorb Gel. Apply Maxsorb Extra . Cover with ABD Pad. Wrap with Kerlix from Base of Toes to below Knee Daily and prn. Apply Betadine to Nail Matrixes of toes R foot, Plantar R 1st metatarsal and Plantar R Heel Daily. Elevate Both Lower Extremities with Pillows. (3) Encephalopathy Declan Cole May 10, 2020 13:10
[2020-05-10 16:00] VITALS: BP 104/56
[2020-05-10] MEDS: Lactulose 20gm/30ml UDC ORAL SCH (18:04)
[2020-05-10 20:00] VITALS: BP 110/65
--- NOTE | 2020-05-10 20:32 | Internal Med Progress Note ---
Subjective Physician Name Robert Amato Attending Physician Robert Amato M.D. Current Medications Medications (Trade) Dose Ordered Sig/Mirian Route PRN Reason Start Time Stop Time Status Last Admin Dose Admin Ascorbic Acid (Vitamin C) 500 mg DAILY ORAL 05/06/20 09:00 06/05/20 08:59 05/10/20 09:26 Clobetasol Propionate (Temovate) 1 applic TWICE A DAY TOPIC 05/08/20 11:00 08/06/20 10:59 05/10/20 09:26 Ferrous Sulfate (Feosol) 325 mg DAILY ORAL 05/06/20 09:00 08/04/20 08:59 05/10/20 09:25 Gabapentin (Neurontin) 100 mg THREE TIMES A DAY ORAL 05/06/20 09:00 06/05/20 08:59 05/10/20 18:04 Lactulose (Cephulac) 20 gm BID ORAL 05/10/20 18:00 06/09/20 17:59 05/10/20 18:04 Propranolol HCl (Inderal) 10 mg THREE TIMES A DAY ORAL 05/06/20 09:00 06/05/20 08:59 05/09/20 17:30 Sertraline HCl (Zoloft) 100 mg DAILY ORAL 05/06/20 09:00 06/05/20 08:59 05/10/20 09:25 Spironolactone (Aldactone) 25 mg DAILY ORAL 05/06/20 09:00 06/05/20 08:59 05/09/20 09:05 Zinc Sulfate (Zinc Sulfate) 220 mg DAILY ORAL 05/06/20 09:00 08/04/20 08:59 05/10/20 09:26 Allergies: Coded Allergies: No Known Allergies (Unverified , 05/05/20) ROS Limited/Unobtainable: No Constitutional: Reports: weakness HEENT: Denies: no symptoms, eye pain, blurred vision, tearing, double vision, ear pain, ear discharge, nose pain, nose congestion, throat pain, throat swelling, mouth pain, mouth swelling, other Cardiovascular: Denies: no symptoms, chest pain, edema, irregular heart rate, lightheadedness, palpitations, syncope, other Respiratory: Denies: no symptoms, cough, orthopnea, shortness of breath, SOB with excertion, SOB at rest, sputum, stridor, wheezing, other Gastrointestinal/Abdominal: Denies: no symptoms, abdomen distended, abdominal pain, black stools, tarry stools, blood in stool, constipated, diarrhea, difficulty swallowing, nausea, poor appetite, poor fluid intake, rectal bl eeding, vomiting, other Genitourinary: Denies: no symptoms, burning, discharge, frequency, flank pain, hematuria, incontinence, pain, urgency, other Neurologic/Psychiatric: Denies: no symptoms, anxiety, depressed, emotional problems, headache, numbness, paresthesia, pre-existing deficit, seizure, tingling, tremors, weakness, other Subjective Lipase remains elevated no abd pain no nausea Impression: Evidence of hepatic cirrhosis, with coarsened echogenicity and surface nodularity Splenomegaly Cholelithiasis. Negative for dilated ducts Bilateral renal cysts incidentally noted Objective Last Vital Signs Date Time Temp Pulse Resp B/P (MAP) Pulse Ox O2 Delivery O2 Flow Rate FiO2 05/10/20 18:00 59 104/56 05/10/20 16:00 97.8 19 96 05/10/20 09:00 Room Air 05/05/20 13:41 98 Laboratory Tests Test 05/10/20 06:10 White Blood Count 3.5 K/UL (4.8-10.8) L Red Blood Count 4.27 M/UL (4.70-6.10) L Hemoglobin 11.6 G/DL (14.2-18.0) L Hematocrit 37.0 % (42.0-52.0) L Mean Corpuscular Volume 87 FL (80-99) Mean Corpuscular Hemoglobin 27.2 PG (27.0-31.0) Mean Corpuscular Hemoglobin Concent 31.5 G/DL (32.0-36.0) L Red Cell Distribution Width 17.3 % (11.6-14.8) H Platelet Count 65 K/UL (150-450) L Mean Platelet Volume 9.3 FL (6.5-10.1) Neutrophils (%) (Auto) % (45.0-75.0) Lymphocytes (%) (Auto) % (20.0-45.0) Monocytes (%) (Auto) % (1.0-10.0) Eosinophils (%) (Auto) % (0.0-3.0) Basophils (%) (Auto) % (0.0-2.0) Differential Total Cells Counted 100 Neutrophils % (Manual) 55 % (45-75) Lymphocytes % (Manual) 30 % (20-45) Monocytes % (Manual) 10 % (1-10) Eosinophils % (Manual) 5 % (0-3) H Basophils % (Manual) 0 % (0-2) Band Neutrophils 0 % (0-8) Platelet Estimate Decreased L Platelet Morphology Normal Hypochromasia 1+ Anisocytosis 1+ Prothrombin Time 13.7 SEC (9.30-11.50) H Prothromb Time International Ratio 1.3 (0.9-1.1) H Activated Partial Thromboplast Time 33 SEC (23-33) Sodium Level 138 MMOL/L (136-145) Potassium Level 3.7 MMOL/L (3.5-5.1) Chloride Level 107 MMOL/L (98-107) Carbon Dioxide Level 24 MMOL/L (21-32) Anion Gap 7 mmol/L (5-15) Blood Urea Nitrogen 20 mg/dL (7-18) H Creatinine 1.1 MG/DL (0.55-1.30) Estimat Glomerular Filtration Rate > 60 mL/min (>60) Glucose Level 86 MG/DL (74-106) Calcium Level 8.9 MG/DL (8.5-10.1) Total Bilirubin 0.8 MG/DL (0.2-1.0) Aspartate Amino Transf (AST/SGOT) 75 U/L (15-37) H Alanine Aminotransferase (ALT/SGPT) 59 U/L (12-78) Alkaline Phosphatase 81 U/L (46-116) Ammonia 68 umol/L (11-32) H Total Protein 6.3 G/DL (6.4-8.2) L Albumin 2.6 G/DL (3.4-5.0) L Globulin 3.7 g/dL Albumin/Globulin Ratio 0.7 (1.0-2.7) L Amylase Level 76 U/L (25-115) Lipase 396 U/L (73-393) H Hepatitis A IgM Antibody Pending Hepatitis B Surface Antigen Pending Hepatitis B Core IgM Antibody Pending Hepatitis C Antibody Pending Intake and Output 05/09/20 05/10/20 19:00 07:00 Intake Total 720 ml 400 ml Balance 720 ml 400 ml Intake Oral 720 ml 400 ml # Voids 3 Objective General appearance: alert, cooperative, no distress, appears stated age Head: Normocephalic, without obvious abnormality, atraumatic Eyes: conjunctivae/corneas clear. PERRL, EOM's intact. Fundi benign Throat: Lips, mucosa, and tongue normal. Teeth and gums normal Neck: supple, symmetrical, trachea midline, no adenopathy, thyroid: not enlarged, symmetric, no tenderness/mass/nodules, no carotid bruit and no JVD Lungs: clear to auscultation bilaterally Heart: regular rate and rhythm, S1, S2 normal, no murmur, click, rub or gallop Abdomen: soft, non-tender. Bowel sounds normal. No masses, no organomegaly Extremities: extremities normal, atraumatic, no cyanosis or edema Pulses: 2+ and symmetric Skin: Skin color, texture, turgor normal. No rashes or lesions Neurologic: Grossly normal Assessment/Plan Assessment/Plan #hepatitis C cirrhosis #Elevated lipase #hypertension #cirrhosis #anemia, #behavioral disorder, - admit inpatient - GI eval - gen surg eval - trend lipase - monitor LFTS - abd US - resume SECURITY TESTER meds - monitor lytes - propanalol 10 TID - aldactone 25mg daily Time spent 45 min Robert Amato M.D. May 10, 2020 20:32
[2020-05-11] VITALS: BP 107/59
[2020-05-11 04:00] VITALS: BP 111/67
[2020-05-11 06:13] LABS: HEMATOCRIT 36.1 % (42.0-52.0); HEMOGLOBIN 11.5 G/DL (14.2-18.0); MEAN CORPUSCULAR VOLUME 87 FL (80-99); PLATELET COUNT 59 K/UL (150-450); RED BLOOD COUNT 4.16 M/UL (4.70-6.10); RED CELL DISTRIBUTION WIDTH 17.9 % (11.6-14.8); WHITE BLOOD COUNT 7.3 K/UL (4.8-10.8)
[2020-05-11 06:39] LABS: AMYLASE 71 U/L (25-115)
[2020-05-11 07:02] LABS: ALBUMIN 2.6 G/DL (3.4-5.0); ALBUMIN/GLOBULIN RATIO 0.6 (1.0-2.7); BILIRUBIN,TOTAL 1.3 MG/DL (0.2-1.0); CALCIUM 8.3 MG/DL (8.5-10.1); CREATININE 1.3 MG/DL (0.55-1.30); POTASSIUM 3.8 MMOL/L (3.5-5.1)
[2020-05-11 07:03] LABS: BILIRUBIN,DIRECT 0.5 MG/DL (0.0-0.3)
[2020-05-11 08:00] VITALS: BP 109/56
[2020-05-11] MEDS: Propranolol 10mg tab ORAL SCH ×3 (09:00→17:41)
[2020-05-11] MEDS: Ascorbic Acid 500mg tab ORAL SCH (09:08)
[2020-05-11] MEDS: Zinc Sulfate 220mg ORAL SCH (09:08)
[2020-05-11] MEDS: Sertraline 100mg tab ORAL SCH (09:08)
[2020-05-11] MEDS: Spironolactone 25mg tab ORAL SCH (09:08)
[2020-05-11] MEDS: Lactulose 20gm/30ml UDC ORAL SCH ×2 (09:08→17:41)
[2020-05-11] MEDS: CLOBETASOL 0.05% TOPIC SCH ×2 (09:10→17:41)
--- NOTE | 2020-05-11 09:21 | Pulmonology Progress Note ---
Subjective ROS Limited/Unobtainable: No Interval Events: Fever this AM Constitutional: Reports: no symptoms, fever, other - Fujl=[id number] HEENT: Repors: no symptoms Respiratory: Reports: no symptoms Cardiovascular: Reports: no symptoms Gastrointestinal/Abdominal: Reports: no symptoms Genitourinary: Reports: no symptoms Neurologic: Reports: no symptoms Allergies: Coded Allergies: No Known Allergies (Unverified , 05/05/20) Objective Last 24 Hour Vital Signs Date Time Temp Pulse Resp B/P (MAP) Pulse Ox O2 Delivery O2 Flow Rate FiO2 05/11/20 09:00 84 109/56 05/11/20 04:00 97.8 77 20 111/67 (82) 96 05/11/20 00:00 99.1 80 21 107/59 (75) 96 05/10/20 23:07 Room Air 05/10/20 20:00 99.0 93 21 110/65 (80) 96 05/10/20 18:00 59 104/56 05/10/20 16:00 97.8 59 19 104/56 (72) 96 05/10/20 12:42 53 105/65 05/10/20 12:00 97.5 53 19 105/65 (78) 98 Intake and Output 05/10/20 05/11/20 19:00 07:00 Intake Total 840 ml Output Total 625 ml Balance 840 ml -625 ml Intake Oral 840 ml Output Urine Total 625 ml General Appearance: no acute distress HEENT: normocephalic Respiratory: chest wall non-tender, lungs clear Cardiovascular: normal peripheral pulses, normal rate Abdomen: normal bowel sounds, soft, non tender Laboratory Tests 05/11/20 05:50: White Blood Count 7.3#, Red Blood Count 4.16L, Hemoglobin 11.5L, Hematocrit 36.1L, Mean Corpuscular Volume 87, Mean Corpuscular Hemoglobin 27.7, Mean Corpuscular Hemoglobin Concent 31.9L, Red Cell Distribution Width 17.9H, Platelet Count 59L, Mean Platelet Volume 8.1, Neutrophils (%) (Auto) , Lymphocytes (%) (Auto) , Monocytes (%) (Auto) , Eosinophils (%) (Auto) , Basophils (%) (Auto) , Neutrophils % (Manual) [Pending], Lymphocytes % (Manual) [Pending], Platelet Estimate [Pending], Platelet Morphology [Pending], Sodium Level 137, Potassium Level 3.8, Chloride Level 105, Carbon Dioxide Level 23, Anion Gap 9, Blood Urea Nitrogen 18, Creatinine 1.3, Estimat Glomerular Filtration Rate 55.6, Glucose Level 143H, Calcium Level 8.3L, Total Bilirubin 1.3H, Direct Bilirubin 0.5H, Aspartate Amino Transf (AST/SGOT) 71H, Alanine Aminotransferase (ALT/SGPT) 62, Alkaline Phosphatase 80, Ammonia 38H, Total Protein 6.6, Albumin 2.6L, Globulin 4.0, Albumin/Globulin Ratio 0.6L, Amylase Level 71, Lipase 327 Current Medications Medications (Trade) Dose Ordered Sig/Mirian Route PRN Reason Start Time Stop Time Status Last Admin Dose Admin Ascorbic Acid (Vitamin C) 500 mg DAILY ORAL 05/06/20 09:00 06/05/20 08:59 05/11/20 09:08 Clobetasol Propionate (Temovate) 1 applic TWICE A DAY TOPIC 05/08/20 11:00 08/06/20 10:59 05/11/20 09:10 Ferrous Sulfate (Feosol) 325 mg DAILY ORAL 05/06/20 09:00 08/04/20 08:59 05/11/20 09:08 Gabapentin (Neurontin) 100 mg THREE TIMES A DAY ORAL 05/06/20 09:00 06/05/20 08:59 05/11/20 09:08 Lactulose (Cephulac) 20 gm BID ORAL 05/10/20 18:00 06/09/20 17:59 05/11/20 09:08 Propranolol HCl (Inderal) 10 mg THREE TIMES A DAY ORAL 05/06/20 09:00 06/05/20 08:59 05/09/20 17:30 Sertraline HCl (Zoloft) 100 mg DAILY ORAL 05/06/20 09:00 06/05/20 08:59 05/11/20 09:08 Spironolactone (Aldactone) 25 mg DAILY ORAL 05/06/20 09:00 06/05/20 08:59 05/11/20 09:08 Zinc Sulfate (Zinc Sulfate) 220 mg DAILY ORAL 05/06/20 09:00 08/04/20 08:59 05/11/20 09:08 Assessment/Plan Assessment/Plan 1. Nicotine dependence -Patient education on smoking cessation 2. Normoxemia 3. COVID-19 negative (04/30) 4. Pancreatitis - Seen by surgery, GI - tolerating diet - hep C Ab (+) Respiratory status is stable Saturating well on RA Noted plan for discharge Medically stable for discharge from pulmonary standpoint The care for this patient was discussed with my supervising physician Time spent for this case was approximately 31 mionutes Anthony Cohen May 11, 2020 09:21
[2020-05-11] MEDS ORDERED: Acetaminophen 500mg (ES) tab ORAL PRN (09:30)
--- NOTE | 2020-05-11 11:19 | Internal Med Progress Note ---
Subjective Physician Name Robert Amato Attending Physician Robert Amato M.D. Current Medications Medications (Trade) Dose Ordered Sig/Mirian Route PRN Reason Start Time Stop Time Status Last Admin Dose Admin Acetaminophen (Tylenol) 500 mg Q4H PRN ORAL Temp >100.5 05/11/20 09:30 06/10/20 09:29 05/11/20 09:28 Ascorbic Acid (Vitamin C) 500 mg DAILY ORAL 05/06/20 09:00 06/05/20 08:59 05/11/20 09:08 Clobetasol Propionate (Temovate) 1 applic TWICE A DAY TOPIC 05/08/20 11:00 08/06/20 10:59 05/11/20 09:10 Ferrous Sulfate (Feosol) 325 mg DAILY ORAL 05/06/20 09:00 08/04/20 08:59 05/11/20 09:08 Gabapentin (Neurontin) 100 mg THREE TIMES A DAY ORAL 05/06/20 09:00 06/05/20 08:59 05/11/20 09:08 Lactulose (Cephulac) 20 gm BID ORAL 05/10/20 18:00 06/09/20 17:59 05/11/20 09:08 Propranolol HCl (Inderal) 10 mg THREE TIMES A DAY ORAL 05/06/20 09:00 06/05/20 08:59 05/09/20 17:30 Sertraline HCl (Zoloft) 100 mg DAILY ORAL 05/06/20 09:00 06/05/20 08:59 05/11/20 09:08 Spironolactone (Aldactone) 25 mg DAILY ORAL 05/06/20 09:00 06/05/20 08:59 05/11/20 09:08 Zinc Sulfate (Zinc Sulfate) 220 mg DAILY ORAL 05/06/20 09:00 08/04/20 08:59 05/11/20 09:08 Allergies: Coded Allergies: No Known Allergies (Unverified , 05/05/20) ROS Limited/Unobtainable: No Constitutional: Reports: weakness HEENT: Denies: no symptoms, eye pain, blurred vision, tearing, double vision, ear pain, ear discharge, nose pain, nose congestion, throat pain, throat swelling, mouth pain, mouth swelling, other Cardiovascular: Denies: no symptoms, chest pain, edema, irregular heart rate, lightheadedness, palpitations, syncope, other Respiratory: Denies: no symptoms, cough, orthopnea, shortness of breath, SOB with excertion, SOB at rest, sputum, stridor, wheezing, other Gastrointestinal/Abdominal: Denies: no symptoms, abdomen distended, abdominal pain, black stools, tarry stools, blood in stool, constipated, diarrhea, difficulty swallowing, nausea, poor appetite, poor fluid intake, rectal bleeding, vomiting, other Genitourinary: Denies: no symptoms, burning, discharge, frequency, flank pain, hematuria, incontinence, pain, urgency, other Neurologic/Psychiatric: Denies: no symptoms, anxiety, depressed, emotional problems, headache, numbness, paresthesia, pre-existing deficit, seizure, tingling, tremors, weakness, other Subjective febrile this morning UA urine cx chex xray ID consult no abd pain no nausea Impression: Evidence of hepatic cirrhosis, with coarsened echogenicity and surface nodularity Splenomegaly Cholelithiasis. Negative for dilated ducts Bilateral renal cysts incidentally noted Objective Last Vital Signs Date Time Temp Pulse Resp B/P (MAP) Pulse Ox O2 Delivery O2 Flow Rate FiO2 05/11/20 09:00 84 109/56 05/11/20 08:00 102.2 20 94 05/10/20 23:07 Room Air 05/05/20 13:41 98 Laboratory Tests Test 05/11/20 05:50 05/11/20 11:00 White Blood Count 7.3 K/UL (4.8-10.8) # Red Blood Count 4.16 M/UL (4.70-6.10) L Hemoglobin 11.5 G/DL (14.2-18.0) L Hematocrit 36.1 % (42.0-52.0) L Mean Corpuscular Volume 87 FL (80-99) Mean Corpuscular Hemoglobin 27.7 PG (27.0-31.0) Mean Corpuscular Hemoglobin Concent 31.9 G/DL (32.0-36.0) L Red Cell Distribution Width 17.9 % (11.6-14.8) H Platelet Count 59 K/UL (150-450) L Mean Platelet Volume 8.1 FL (6.5-10.1) Neutrophils (%) (Auto) % (45.0-75.0) Lymphocytes (%) (Auto) % (20.0-45.0) Monocytes (%) (Auto) % (1.0-10.0) Eosinophils (%) (Auto) % (0.0-3.0) Basophils (%) (Auto) % (0.0-2.0) Differential Total Cells Counted 100 Neutrophils % (Manual) 81 % (45-75) H Lymphocytes % (Manual) 17 % (20-45) L Monocytes % (Manual) 1 % (1-10) Eosinophils % (Manual) 1 % (0-3) Basophils % (Manual) 0 % (0-2) Band Neutrophils 0 % (0-8) Platelet Estimate Decreased L Platelet Morphology Normal Hypochromasia 1+ Anisocytosis 1+ Sodium Level 137 MMOL/L (136-145) Potassium Level 3.8 MMOL/L (3.5-5.1) Chloride Level 105 MMOL/L (98-107) Carbon Dioxide Level 23 MMOL/L (21-32) Anion Gap 9 mmol/L (5-15) Blood Urea Nitrogen 18 mg/dL (7-18) Creatinine 1.3 MG/DL (0.55-1.30) Estimat Glomerular Filtration Rate 55.6 mL/min (>60) Glucose Level 143 MG/DL (74-106) H Calcium Level 8.3 MG/DL (8.5-10.1) L Total Bilirubin 1.3 MG/DL (0.2-1.0) H Direct Bilirubin 0.5 MG/DL (0.0-0.3) H Aspartate Amino Transf (AST/SGOT) 71 U/L (15-37) H Alanine Aminotransferase (ALT/SGPT) 62 U/L (12-78) Alkaline Phosphatase 80 U/L (46-116) Ammonia 38 umol/L (11-32) H Total Protein 6.6 G/DL (6.4-8.2) Albumin 2.6 G/DL (3.4-5.0) L Globulin 4.0 g/dL Albumin/Globulin Ratio 0.6 (1.0-2.7) L Amylase Level 71 U/L (25-115) Lipase 327 U/L (73-393) Urine Color Pending Urine Appearance Pending Urine pH Pending Urine Specific [place] Pending Urine Protein Pending Urine Glucose (UA) Pending Urine Ketones Pending Urine Blood Pending Urine Nitrite Pending Urine Bilirubin Pending Urine Urobilinogen Pending Urine Leukocyte Esterase Pending Urine RBC Pending Urine WBC Pending Urine Squamous Epithelial Cells Pending Urine Bacteria Pending Intake and Output 05/10/20 05/11/20 19:00 07:00 Intake Total 840 ml Output Total 625 ml Balance 840 ml -625 ml Intake Oral 840 ml Output Urine Total 625 ml Objective General appearance: alert, cooperative, no distress, appears stated age Head: Normocephalic, without obvious abnormality, atraumatic Eyes: conjunctivae/corneas clear. PERRL, EOM's intact. Fundi benign Throat: Lips, mucosa, and tongue normal. Teeth and gums normal Neck: supple, symmetrical, trachea midline, no adenopathy, thyroid: not enlarged, symmetric, no tenderness/mass/nodules, no carotid bruit and no JVD Lungs: clear to auscultation bilaterally Heart: regular rate and rhythm, S1, S2 normal, no murmur, click, rub or gallop Abdomen: soft, non-tender. Bowel sounds normal. No masses, no organomegaly Extremities: extremities normal, atraumatic, no cyanosis or edema Pulses: 2+ and symmetric Skin: Skin color, texture, turgor normal. No rashes or lesions Neurologic: Grossly normal Assessment/Plan Assessment/Plan #hepatitis C cirrhosis #Elevated lipase #hypertension #cirrhosis #anemia, #behavioral disorder #fevers - UA - urine cx - chest xray - ID consult - GI eval - gen surg eval - trend lipase - monitor LFTS - abd US - resume [employer] meds - monitor lytes - propanalol 10 TID - aldactone 25mg daily Time spent 45 min Robert Amato M.D. May 11, 2020 11:19
[2020-05-11 11:22] LABS: APPEARANCE,URINE CLEAR; BILIRUBIN, URINE NEGATIVE (NEGATIVE); GLUCOSE, URINE (UA) NEGATIVE (NEGATIVE); KETONES,URINE NEGATIVE (NEGATIVE); LEUKOCYTE ESTERASE ,URINE NEGATIVE (NEGATIVE); NITRITE,URINE NEGATIVE (NEGATIVE); PH,URINE 7 (4.5-8.0); PROTEIN,URINE NEGATIVE (NEGATIVE); UROBILINOGEN,URINE 8 MG/DL (0.0-1.0)
[2020-05-11 11:23] LABS: COLOR,URINE YELLOW
[2020-05-11 12:00] VITALS: BP 102/53
--- NOTE | 2020-05-11 12:36 | Diagnostic Imaging Report ---
Indication: Shortness of breath Technique: XRAY Chest 1v Comparison: None Findings: Heart size within normal limits for AP technique. Solid contours are sharp. There is evidence of prior surgery with median sternotomy. There is a linear opacity in the right midlung favored to represent subsegmental atelectasis or scarring. Mild right-sided volume loss. Otherwise no focal airspace consolidation. No pleural effusion or pneumothorax. There are degenerative changes in the spine. No acute osseous abnormality. IMPRESSION: Linear atelectasis or scarring in the right lung. Evidence of prior surgery with median sternotomy.
--- NOTE | 2020-05-11 14:22 | Surgery Progress Note ---
Surgery Progress Note Subjective Symptoms: improved, tolerating diet, passing flatus, BM Objective Last 24 Hour Vital Signs Date Time Temp Pulse Resp B/P (MAP) Pulse Ox O2 Delivery O2 Flow Rate FiO2 05/11/20 12:29 81 102/53 05/11/20 12:00 98.1 81 19 102/53 (69) 97 05/11/20 09:58 102.2 05/11/20 09:00 84 109/56 05/11/20 08:00 102.2 84 20 109/56 (73) 94 05/11/20 04:00 97.8 77 20 111/67 (82) 96 05/11/20 00:00 99.1 80 21 107/59 (75) 96 05/10/20 23:07 Room Air 05/10/20 20:00 99.0 93 21 110/65 (80) 96 05/10/20 18:00 59 104/56 05/10/20 16:00 97.8 59 19 104/56 (72) 96 I&O Intake and Output 05/10/20 05/11/20 19:00 07:00 Intake Total 840 ml Output Total 625 ml Balance 840 ml -625 ml Intake Oral 840 ml Output Urine Total 625 ml Cardiovascular: RSR Respiratory: clear Abdomen: soft, flat, non-tender, present bowel sounds, non-distended Extremities: no edema, no tenderness, no cyanosis Laboratory Tests Test 05/11/20 05:50 05/11/20 11:00 White Blood Count 7.3 K/UL (4.8-10.8) # Red Blood Count 4.16 M/UL (4.70-6.10) L Hemoglobin 11.5 G/DL (14.2-18.0) L Hematocrit 36.1 % (42.0-52.0) L Mean Corpuscular Volume 87 FL (80-99) Mean Corpuscular Hemoglobin 27.7 PG (27.0-31.0) Mean Corpuscular Hemoglobin Concent 31.9 G/DL (32.0-36.0) L Red Cell Distribution Width 17.9 % (11.6-14.8) H Platelet Count 59 K/UL (150-450) L Mean Platelet Volume 8.1 FL (6.5-10.1) Neutrophils (%) (Auto) % (45.0-75.0) Lymphocytes (%) (Auto) % (20.0-45.0) Monocytes (%) (Auto) % (1.0-10.0) Eosinophils (%) (Auto) % (0.0-3.0) Basophils (%) (Auto) % (0.0-2.0) Differential Total Cells Counted 100 Neutrophils % (Manual) 81 % (45-75) H Lymphocytes % (Manual) 17 % (20-45) L Monocytes % (Manual) 1 % (1-10) Eosinophils % (Manual) 1 % (0-3) Basophils % (Manual) 0 % (0-2) Band Neutrophils 0 % (0-8) Platelet Estimate Decreased L Platelet Morphology Normal Hypochromasia 1+ Anisocytosis 1+ Sodium Level 137 MMOL/L (136-145) Potassium Level 3.8 MMOL/L (3.5-5.1) Chloride Level 105 MMOL/L (98-107) Carbon Dioxide Level 23 MMOL/L (21-32) Anion Gap 9 mmol/L (5-15) Blood Urea Nitrogen 18 mg/dL (7-18) Creatinine 1.3 MG/DL (0.55-1.30) Estimat Glomerular Filtration Rate 55.6 mL/min (>60) Glucose Level 143 MG/DL (74-106) H Calcium Level 8.3 MG/DL (8.5-10.1) L Total Bilirubin 1.3 MG/DL (0.2-1.0) H Direct Bilirubin 0.5 MG/DL (0.0-0.3) H Aspartate Amino Transf (AST/SGOT) 71 U/L (15-37) H Alanine Aminotransferase (ALT/SGPT) 62 U/L (12-78) Alkaline Phosphatase 80 U/L (46-116) Ammonia 38 umol/L (11-32) H Total Protein 6.6 G/DL (6.4-8.2) Albumin 2.6 G/DL (3.4-5.0) L Globulin 4.0 g/dL Albumin/Globulin Ratio 0.6 (1.0-2.7) L Amylase Level 71 U/L (25-115) Lipase 327 U/L (73-393) Urine Color Yellow Urine Appearance Clear Urine pH 7 (4.5-8.0) Urine Specific [place] 1.010 (1.005-1.035) Urine Protein Negative (NEGATIVE) Urine Glucose (UA) Negative (NEGATIVE) Urine Ketones Negative (NEGATIVE) Urine Blood 1+ (NEGATIVE) H Urine Nitrite Negative (NEGATIVE) Urine Bilirubin Negative (NEGATIVE) Urine Urobilinogen 8 MG/DL (0.0-1.0) H Urine Leukocyte Esterase Negative (NEGATIVE) Urine RBC 10-15 /HPF (0 - 0) H Urine WBC 0-2 /HPF (0 - 0) Urine Squamous Epithelial Cells Few /LPF (NONE/OCC) Urine Calcium Oxalate Crystals Moderate /LPF (NONE) Urine Bacteria Occasional /HPF (NONE) Plan Problems: (1) History of cirrhosis (2) Pancreatitis Assessment & Plan: This is a 64-year-old male with known history of cirrhosis and identified to have pancreatitis aggressive encephalopathy admitted for the care management. Labs noted. No current imaging available. Imaging ordered. Ultrasound abdomen. Abdominal distention fluid potentially ascites may need tap. Afebrile hemodynamic stable labs noted shift identified. LFTs noted. Okay for diet from surgical standpoint. Will follow with recommendations as imaging and orders available. Pt presented on admission with Edema Bilat Lower Extremity,Ulcer Medial R tibia. Haemosiderin Stain with Xerotic Skin and scattered hyperkeratotic plaques. Both feet are cool to touch. Wound Medial R lower extremity;just inferior to Knee. Wound is moist,sarai with Biofilm. Small area of Necrosis clockwise along borders @8o'clock. Borders are irregular,and macerated.Wound oozing serous exudate.(L)3.4cm x (W)2.2cm x (D)0.3cm. Mild odor noted. Pt stated having wound for 3months. Dried sanguineous exudate noted to nail matrix of R 1st, 2nd,3rd,4th and 5th metatarsals. Post cleansing ,pt noted to have several small lacerations. In addition, small laceration noted at base, plantar R 1st metatarsal. Pt stated" I confess, I have been using a nail to pick at my toenails." In addition, several linear cuts noted to plantar R Heel. Education provided to pt of risks for infection,or worse secondary to compromised circulation in lower extremities. Pt also given education on skin care to promote skin integrity and preventing ulcerations. Encouraged to keep legs elevated while sitting or while in bed. Tx.Plan: Wash and moisturize both lower extremities Daily and prn. Cleanse wound R lower extremity with Saline. Apply Silvasorb Gel. Apply Maxsorb Extra . Cover with ABD Pad. Wrap with Kerlix from Base of Toes to below Knee Daily and prn. Apply Betadine to Nail Matrixes of toes R foot, Plantar R 1st metatarsal and Plantar R Heel Daily. Elevate Both Lower Extremities with Pillows. (3) Declan Mike May 11, 2020 14:22
[2020-05-11] MEDS: cefTRIAXone 2 GM in D5W 55 ML IVPB SCH (15:18)
--- NOTE | 2020-05-11 15:44 | Consultation ---
DATE OF CONSULTATION: 05/11/2020 INFECTIOUS DISEASE CONSULTATION CONSULTING PHYSICIAN: Darrian Workman MD PRIMARY ATTENDING: Robert Amato MD REASON FOR CONSULTATION: Fever. HISTORY OF PRESENT ILLNESS: This is a 64-year-old male admitted on 05/05/2020 from a nursing facility because of aggressiveness. Patient has history of cirrhosis of liver and hepatitis C. He was found to have mild pancreatitis. Since this morning developed fever up to 102.2. PAST MEDICAL HISTORY: Hepatitis C, hypertension, anemia, cirrhosis, encephalopathy. ALLERGIES: No known drug allergies. MEDICATIONS: Getting Tylenol, lactulose, zinc sulfate, spironolactone, sertraline, propranolol, gabapentin, ferrous sulfate, vitamin C. SOCIAL HISTORY: Single. [facility] resident. Active smoker. He has history of alcohol abuse. REVIEW OF SYSTEMS: Patient has no complaints except fever. Denies any coughing or shortness of breath. No chest pain. No nausea. No vomiting. No diarrhea. No dysuria. PHYSICAL EXAMINATION: VITAL SIGNS: Temperature 98.1, T-max 102.2, pulse 81, blood pressure 102/53. GENERAL APPEARANCE: No acute distress. HEAD AND NECK: Moist mucous membranes. [place] conjunctivae. HEART: Normal rate. LUNGS: Clear. ABDOMEN: Soft, distended. EXTREMITIES: Has no edema. LABORATORY AND DIAGNOSTIC DATA: WBC 7.3, yesterday was 3.5, hemoglobin 11.5, hematocrit 36.1, platelets 59,000. Patient had no culture. UA showed wbc's 0 to 2, rbc's of 10 to 15. Hepatitis C antibody was positive. Urine toxicology was negative. Abdominal ultrasound showed cholelithiasis, splenomegaly, cirrhosis of liver. Chest x-ray showed some atelectasis or scarring in the right lung. Evidence of previous surgery with median sternotomy. Total bilirubin 1.3, direct bilirubin 0.5, AST 71. Ammonia 38. Lipase 327, the highest level was 589. IMPRESSION: Fever, likely sepsis. Has acute pancreatitis, improving. Has cirrhosis of liver. Has encephalopathy. Has hepatitis C, thrombocytopenia, hypertension, anemia, splenomegaly, cholelithiasis. RECOMMENDATION: We will follow up urine culture. We will obtain blood cultures x2. We will start empirically on ceftriaxone. At the end of my exam, I thank Dr. Amato for involving me in the care of this patient. Darrian Workman M.D. DR: RU JOB#: [id number] CC:
--- NOTE | 2020-05-11 15:51 | General Progress Note ---
Subjective ROS Limited/Unobtainable: No Allergies: Coded Allergies: No Known Allergies (Unverified , 05/05/20) Objective Last 24 Hour Vital Signs Date Time Temp Pulse Resp B/P (MAP) Pulse Ox O2 Delivery O2 Flow Rate FiO2 05/11/20 12:29 81 102/53 05/11/20 12:00 98.1 81 19 102/53 (69) 97 05/11/20 09:58 102.2 05/11/20 09:00 Room Air 05/11/20 09:00 84 109/56 05/11/20 08:00 102.2 84 20 109/56 (73) 94 05/11/20 04:00 97.8 77 20 111/67 (82) 96 05/11/20 00:00 99.1 80 21 107/59 (75) 96 05/10/20 23:07 Room Air 05/10/20 20:00 99.0 93 21 110/65 (80) 96 05/10/20 18:00 59 104/56 05/10/20 16:00 97.8 59 19 104/56 (72) 96 Intake and Output 05/10/20 05/11/20 19:00 07:00 Intake Total 840 ml Output Total 625 ml Balance 840 ml -625 ml Intake Oral 840 ml Output Urine Total 625 ml Laboratory Tests 05/11/20 05:50: White Blood Count 7.3#, Red Blood Count 4.16L, Hemoglobin 11.5L, Hematocrit 36.1L, Mean Corpuscular Volume 87, Mean Corpuscular Hemoglobin 27.7, Mean Corpuscular Hemoglobin Concent 31.9L, Red Cell Distribution Width 17.9H, Platelet Count 59L, Mean Platelet Volume 8.1, Neutrophils (%) (Auto) , Lymphocytes (%) (Auto) , Monocytes (%) (Auto) , Eosinophils (%) (Auto) , Basophils (%) (Auto) , Differential Total Cells Counted 100, Neutrophils % (Manual) 81H, Lymphocytes % (Manual) 17L, Monocytes % (Manual) 1, Eosinophils % (Manual) 1, Basophils % (Manual) 0, Band Neutrophils 0, Platelet Estimate DecreasedL, Platelet Morphology Normal, Hypochromasia 1+, Anisocytosis 1+, [place] um Level 137, Potassium Level 3.8, Chloride Level 105, Carbon Dioxide Level 23, Anion Gap 9, Blood Urea Nitrogen 18, Creatinine 1.3, Estimat Glomerular Filtration Rate 55.6, Glucose Level 143H, Calcium Level 8.3L, Total Bilirubin 1.3H, Direct Bilirubin 0.5H, Aspartate Amino Transf (AST/SGOT) 71H, Alanine Aminotransferase (ALT/SGPT) 62, Alkaline Phosphatase 80, Ammonia 38H, Total Prot ein 6.6, Albumin 2.6L, Globulin 4.0, Albumin/Globulin Ratio 0.6L, Amylase Level 71, Lipase 327 05/11/20 11:00: Urine Color Yellow, Urine Appearance Clear, Urine pH 7, Urine Specific [place] 1.010, Urine Protein Negative, Urine Glucose (UA) Negative, Urine Ketones Negative, Urine Blood 1+H, Urine Nitrite Negative, Urine Bilirubin Negative, Urine Urobilinogen 8H, Urine Leukocyte Esterase Negative, Urine RBC 10-15H, Urine WBC 0-2, Urine Squamous Epithelial Cells Few, Urine Calcium Oxalate Crystals Moderate, Urine Bacteria Occasional Height (Feet): 5 Height (Inches): 9.00 Weight (Pounds): 217 General Appearance: no apparent distress EENT: normal ENT inspection Neck: supple Cardiovascular: normal rate Respiratory/Chest: decreased breath sounds Abdomen: normal bowel sounds, non tender, soft Extremities: non-tender Assessment/Plan Problem List: (1) History of cirrhosis ICD Codes: Z87.19 - Personal history of other diseases of the digestive system SNOMED: 817834742 (2) Pancreatitis ICD Codes: K85.90 - Acute pancreatitis without necrosis or infection, unspecified SNOMED: 97316304 (3) Encephalopathy ICD Codes: G93.40 - Encephalopathy, unspecified SNOMED: 96287143 (4) Cholelithiasis ICD Codes: K80.20 - Calculus of gallbladder without cholecystitis without obstruction SNOMED: 700390884 Assessment/Plan: us reviewed on diet hep c + needs out patient fu lactulose will fu Clarence Morelos MD May 11, 2020 15:51
[2020-05-11 16:00] VITALS: BP 101/53
[2020-05-11 20:00] VITALS: BP 103/62
[2020-05-12] VITALS: BP 112/61
[2020-05-12 04:00] VITALS: BP 100/60
[2020-05-12 06:20] LABS: HEMATOCRIT 37.5 % (42.0-52.0); HEMOGLOBIN 11.9 G/DL (14.2-18.0); MEAN CORPUSCULAR VOLUME 87 FL (80-99); PLATELET COUNT 58 K/UL (150-450); RED BLOOD COUNT 4.31 M/UL (4.70-6.10); RED CELL DISTRIBUTION WIDTH 17.9 % (11.6-14.8); WHITE BLOOD COUNT 4.1 K/UL (4.8-10.8)
[2020-05-12 06:48] LABS: ANION GAP 8 mmol/L (5-15); BLOOD UREA NITROGEN 17 mg/dL (7-18); CALCIUM 8.3 MG/DL (8.5-10.1); CARBON DIOXIDE 23 MMOL/L (21-32); CHLORIDE 110 MMOL/L (98-107); PHOSPHORUS 2.4 MG/DL (2.5-4.9); POTASSIUM 3.6 MMOL/L (3.5-5.1); SODIUM 141 MMOL/L (136-145)
[2020-05-12 08:00] VITALS: BP 107/63
--- NOTE | 2020-05-12 08:07 | Pulmonology Progress Note ---
Subjective ROS Limited/Unobtainable: No Interval Events: none major reported per nursing Constitutional: Reports: no symptoms, fever, other - resolved HEENT: Repors: no symptoms Respiratory: Reports: no symptoms Cardiovascular: Reports: no symptoms Gastrointestinal/Abdominal: Reports: no symptoms Genitourinary: Reports: no symptoms Neurologic: Reports: no symptoms Allergies: Coded Allergies: No Known Allergies (Unverified , 05/05/20) Objective Last 24 Hour Vital Signs Date Time Temp Pulse Resp B/P (MAP) Pulse Ox O2 Delivery O2 Flow Rate FiO2 05/12/20 04:00 98.9 62 18 100/60 (73) 96 05/12/20 00:00 98.9 66 18 112/61 (78) 97 05/11/20 21:00 Room Air 05/11/20 20:00 98.5 61 18 103/62 (76) 98 05/11/20 17:41 75 101/53 05/11/20 16:00 97.5 75 20 101/53 (69) 97 05/11/20 12:29 81 102/53 05/11/20 12:00 98.1 81 19 102/53 (69) 97 05/11/20 09:58 102.2 05/11/20 09:00 Room Air 05/11/20 09:00 84 109/56 Intake and Output 05/11/20 05/12/20 19:00 07:00 Intake Total 720 ml 480 ml Output Total 800 ml Balance 720 ml -320 ml Intake Oral 720 ml 480 ml Output Urine Total 800 ml # Voids 4 2 General Appearance: no acute distress HEENT: normocephalic Respiratory: chest wall non-tender, lungs clear Cardiovascular: normal peripheral pulses, normal rate Abdomen: normal bowel sounds, soft, non tender Microbiology Date/Time Source Procedure Growth Status 05/11/20 11:00 Urine,Clean Catch Urine Culture - Preliminary Gram Positive Cocci Resulted Laboratory Tests 05/11/20 11:00: Urine Color Yellow, Urine Appearance Clear, Urine pH 7, Urine Specific [place] 1.010, Urine Protein Negative, Urine Glucose (UA) Negative, Urine Ketones Negative, Urine Blood 1+H, Urine Nitrite Negative, Urine Bilirubin Negative, Urine Urobilinogen 8H, Urine Leukocyte Esterase Negative, Urine RBC 10-15H, Urine WBC 0-2, Urine Squamous Epithelial Cells Few, Urine Calcium Oxalate Crystals Moderate, Urine Bacteria Occasional 05/12/20 06:00: White Blood Count 4.1L, Red Blood Count 4.31L, Hemoglobin 11.9L, Hematocrit 37.5L, Mean Corpuscular Volume 87, Mean Corpuscular Hemoglobin 27.7, Mean Corpuscular Hemoglobin Concent 31.9L, Red Cell Distribution Width 17.9H, Platelet Count 58L, Mean Platelet Volume 9.4, Neutrophils (%) (Auto) , Lymphocytes (%) (Auto) , Monocytes (%) (Auto) , Eosinophils (%) (Auto) , Basophils (%) (Auto) , Neutrophils % (Manual) [Pending], Lymphocytes % (Manual) [Pending], Platelet Estimate [Pending], Platelet Morphology [Pending], Sodium Level 141, Potassium Level 3.6, Chloride Level 110H, Carbon Dioxide Level 23, Anion Gap 8, Blood Urea Nitrogen 17, Creatinine 1.0, Estimat Glomerular Filtration Rate > 60, Glucose Level 115H, Calcium Level 8.3L, Phosphorus Level 2.4L, Magnesium Level 1.8 Current Medications Medications (Trade) Dose Ordered Sig/Mirian Route PRN Reason Start Time Stop Time Status Last Admin Dose Admin Acetaminophen (Tylenol) 500 mg Q4H PRN ORAL Temp >100.5 05/11/20 09:30 06/10/20 09:29 05/11/20 09:28 Ascorbic Acid (Vitamin C) 500 mg DAILY ORAL 05/06/20 09:00 06/05/20 08:59 05/11/20 09:08 Ceftriaxone Sodium 2 gm/ Dextrose 55 ml @ 110 mls/hr Q24H IVPB 05/11/20 15:00 05/18/20 14:59 05/11/20 15:18 Clobetasol Propionate (Temovate) 1 applic TWICE A DAY TOPIC 05/08/20 11:00 08/06/20 10:59 05/11/20 17:41 Ferrous Sulfate (Feosol) 325 mg DAILY ORAL 05/06/20 09:00 08/04/20 08:59 05/11/20 09:08 Gabapentin (Neurontin) 100 mg THREE TIMES A DAY ORAL 05/06/20 09:00 06/05/20 08:59 05/11/20 17:41 Lactulose (Cephulac) 20 gm BID ORAL 05/10/20 18:00 06/09/20 17:59 05/11/20 17:41 Propranolol HCl (Inderal) 10 mg THREE TIMES A DAY ORAL 05/06/20 09:00 06/05/20 08:59 05/09/20 17:30 Sertraline HCl (Zoloft) 100 mg DAILY ORAL 05/06/20 09:00 06/05/20 08:59 05/11/20 09:08 Spironolactone (Aldactone) 25 mg DAILY ORAL 05/06/20 09:00 06/05/20 08:59 05/11/20 09:08 Zinc Sulfate (Zinc Sulfate) 220 mg DAILY ORAL 05/06/20 09:00 08/04/20 08:59 05/11/20 09:08 Assessment/Plan Assessment/Plan 1. Nicotine dependence -Patient education on smoking cessation 2. Normoxemia - CXR (05/11) Linear atelectasis or scarring in the right lung -> monitor given normoxemia 3. COVID-19 negative (04/30) 4. Pancreatitis - Seen by surgery, GI - tolerating diet 5. Hep C Ab (+) - outpatient f/u per GI 6. Sepsis with fever - on empiric ceftriaxone per ID - UCx and BCx pend Respiratory status is stable Saturating well on RA The care for this patient was discussed with my supervising physician Time spent for this case was approximately 31 Anthony Lay May 12, 2020 08:07
[2020-05-12] MEDS: Propranolol 10mg tab ORAL SCH ×3 (09:00→18:00)
[2020-05-12] MEDS: Lactulose 20gm/30ml UDC ORAL SCH ×2 (09:33→18:09)
[2020-05-12] MEDS: Ascorbic Acid 500mg tab ORAL SCH (09:33)
[2020-05-12] MEDS: Spironolactone 25mg tab ORAL SCH (09:33)
[2020-05-12] MEDS: Sertraline 100mg tab ORAL SCH (09:33)
[2020-05-12] MEDS: Zinc Sulfate 220mg ORAL SCH (09:33)
[2020-05-12] MEDS: CLOBETASOL 0.05% TOPIC SCH ×2 (09:34→18:09)
--- NOTE | 2020-05-12 11:35 | Infectious Diseases Prog Note ---
Assessment/Plan Assessment/Plan IMPRESSION: Fever, likely sepsis. Acute pancreatitis, improving. cirrhosis of liver. encephalopathy. Hepatitis C, thrombocytopenia, hypertension, anemia, Splenomegaly, Cholelithiasis. History of infective endocarditis s/p bioprosthetic valve RECOMMENDATION: We will follow up cultures continue ceftriaxone. Subjective ROS Limited/Unobtainable: No Constitutional: Reports: no symptoms, other - feels better Respiratory: Reports: no symptoms Cardiovascular: Reports: no symptoms Gastrointestinal/Abdominal: Reports: no symptoms Genitourinary: Reports: no symptoms Allergies: Coded Allergies: No Known Allergies (Unverified , 05/05/20) Objective Last 24 Hour Vital Signs Date Time Temp Pulse Resp B/P (MAP) Pulse Ox O2 Delivery O2 Flow Rate FiO2 05/12/20 09:00 60 107/63 05/12/20 08:00 98.5 60 19 107/63 (78) 98 05/12/20 04:00 98.9 62 18 100/60 (73) 96 05/12/20 00:00 98.9 66 18 112/61 (78) 97 05/11/20 21:00 Room Air 05/11/20 20:00 98.5 61 18 103/62 (76) 98 05/11/20 17:41 75 101/53 05/11/20 16:00 97.5 75 20 101/53 (69) 97 05/11/20 12:29 81 102/53 05/11/20 12:00 98.1 81 19 102/53 (69) 97 Height (Feet): 5 Height (Inches): 9.00 Weight (Pounds): 217 HEENT: mucous membranes moist Respiratory/Chest: lungs clear Cardiovascular: normal rate, other - scar of thoracotomy Abdomen: soft, non tender Extremities: no edema Neurologic/Psychiatric: alert, responsive Microbiology Date/Time Source Procedure Growth Status 05/11/20 11:00 Urine,Clean Catch Urine Culture - Preliminary Gram Positive Cocci Resulted Laboratory Tests Test 05/12/20 06:00 White Blood Count 4.1 K/UL (4.8-10.8) L Red Blood Count 4.31 M/UL (4.70-6.10) L Hemoglobin 11.9 G/DL (14.2-18.0) L Hematocrit 37.5 % (42.0-52.0) L Mean Corpuscular Volume 87 FL (80-99) Mean Corpuscular Hemoglobin 27.7 PG (27.0-31.0) Mean Corpuscular Hemoglobin Concent 31.9 G/DL (32.0-36.0) L Red Cell Distribution Width 17.9 % (11.6-14.8) H Platelet Count 58 K/UL (150-450) L Mean Platelet Volume 9.4 FL (6.5-10.1) Neutrophils (%) (Auto) % (45.0-75.0) Lymphocytes (%) (Auto) % (20.0-45.0) Monocytes (%) (Auto) % (1.0-10.0) Eosinophils (%) (Auto) % (0.0-3.0) Basophils (%) (Auto) % (0.0-2.0) Differential Total Cells Counted 100 Neutrophils % (Manual) 64 % (45-75) Lymphocytes % (Manual) 26 % (20-45) Monocytes % (Manual) 9 % (1-10) Eosinophils % (Manual) 1 % (0-3) Basophils % (Manual) 0 % (0-2) Band Neutrophils 0 % (0-8) Platelet Estimate Decreased L Platelet Morphology Normal Anisocytosis 1+ Macrocytosis Sodium Level 141 MMOL/L (136-145) Potassium Level 3.6 MMOL/L (3.5-5.1) Chloride Level 110 MMOL/L (98-107) H Carbon Dioxide Level 23 MMOL/L (21-32) Anion Gap 8 mmol/L (5-15) Blood Urea Nitrogen 17 mg/dL (7-18) Creatinine 1.0 MG/DL (0.55-1.30) Estimat Glomerular Filtration Rate > 60 mL/min (>60) Glucose Level 115 MG/DL (74-106) H Calcium Level 8.3 MG/DL (8.5-10.1) L Phosphorus Level 2.4 MG/DL (2.5-4.9) L Magnesium Level 1.8 MG/DL (1.8-2.4) Current Medications Medications (Trade) Dose Ordered Sig/Mirian Route PRN Reason Start Time Stop Time Status Last Admin Dose Admin Acetaminophen (Tylenol) 500 mg Q4H PRN ORAL Temp >100.5 05/11/20 09:30 06/10/20 09:29 05/11/20 09:28 Ascorbic Acid (Vitamin C) 500 mg DAILY ORAL 05/06/20 09:00 06/05/20 08:59 05/12/20 09:33 Ceftriaxone Sodium 2 gm/ Dextrose 55 ml @ 110 mls/hr Q24H IVPB 05/11/20 15:00 05/18/20 14:59 05/11/20 15:18 Clobetasol Propionate (Temovate) 1 applic TWICE A DAY TOPIC 05/08/20 11:00 08/06/20 10:59 05/12/20 09:34 Ferrous Sulfate (Feosol) 325 mg DAILY ORAL 05/06/20 09:00 08/04/20 08:59 05/12/20 09:33 Gabapentin (Neurontin) 100 mg THREE TIMES A DAY ORAL 05/06/20 09:00 06/05/20 08:59 05/12/20 09:33 Lactulose (Cephulac) 20 gm BID ORAL 05/10/20 18:00 06/09/20 17:59 05/12/20 09:33 Propranolol HCl (Inderal) 10 mg THREE TIMES A DAY ORAL 05/06/20 09:00 06/05/20 08:59 05/09/20 17:30 Sertraline HCl (Zoloft) 100 mg DAILY ORAL 05/06/20 09:00 06/05/20 08:59 05/12/20 09:33 Spironolactone (Aldactone) 25 mg DAILY ORAL 05/06/20 09:00 06/05/20 08:59 05/12/20 09:33 Zinc Sulfate (Zinc Sulfate) 220 mg DAILY ORAL 05/06/20 09:00 08/04/20 08:59 05/12/20 09:33 Darrian Workman MD May 12, 2020 11:35
[2020-05-12 12:00] VITALS: BP 104/61
--- NOTE | 2020-05-12 12:25 | Surgery Progress Note ---
Surgery Progress Note Subjective Additional Comments resting comfortable no complaints no n/v Objective Last 24 Hour Vital Signs Date Time Temp Pulse Resp B/P (MAP) Pulse Ox O2 Delivery O2 Flow Rate FiO2 05/12/20 09:00 60 107/63 05/12/20 08:00 98.5 60 19 107/63 (78) 98 05/12/20 04:00 98.9 62 18 100/60 (73) 96 05/12/20 00:00 98.9 66 18 112/61 (78) 97 05/11/20 21:00 Room Air 05/11/20 20:00 98.5 61 18 103/62 (76) 98 05/11/20 17:41 75 101/53 05/11/20 16:00 97.5 75 20 101/53 (69) 97 05/11/20 12:29 81 102/53 I&O Intake and Output 05/11/20 05/12/20 19:00 07:00 Intake Total 720 ml 480 ml Output Total 800 ml Balance 720 ml -320 ml Intake Oral 720 ml 480 ml Output Urine Total 800 ml # Voids 4 2 Cardiovascular: RSR Respiratory: clear Abdomen: soft, non-tender, present bowel sounds, other Extremities: no edema, no tenderness, no cyanosis Laboratory Tests Test 05/12/20 06:00 White Blood Count 4.1 K/UL (4.8-10.8) L Red Blood Count 4.31 M/UL (4.70-6.10) L Hemoglobin 11.9 G/DL (14.2-18.0) L Hematocrit 37.5 % (42.0-52.0) L Mean Corpuscular Volume 87 FL (80-99) Mean Corpuscular Hemoglobin 27.7 PG (27.0-31.0) Mean Corpuscular Hemoglobin Concent 31.9 G/DL (32.0-36.0) L Red Cell Distribution Width 17.9 % (11.6-14.8) H Platelet Count 58 K/UL (150-450) L Mean Platelet Volume 9.4 FL (6.5-10.1) Neutrophils (%) (Auto) % (45.0-75.0) Lymphocytes (%) (Auto) % (20.0-45.0) Monocytes (%) (Auto) % (1.0-10.0) Eosinophils (%) (Auto) % (0.0-3.0) Basophils (%) (Auto) % (0.0-2.0) Differential Total Cells Counted 100 Neutrophils % (Manual) 64 % (45-75) Lymphocytes % (Manual) 26 % (20-45) Monocytes % (Manual) 9 % (1-10) Eosinophils % (Manual) 1 % (0-3) Basophils % (Manual) 0 % (0-2) Band Neutrophils 0 % (0-8) Platelet Estimate Decreased L Platelet Morphology Normal Anisocytosis 1+ Macrocytosis Sodium Level 141 MMOL/L (136-145) Potassium Level 3.6 MMOL/L (3.5-5.1) Chloride Level 110 MMOL/L (98-107) H Carbon Dioxide Level 23 MMOL/L (21-32) Anion Gap 8 mmol/L (5-15) Blood Urea Nitrogen 17 mg/dL (7-18) Creatinine 1.0 MG/DL (0.55-1.30) Estimat Glomerular Filtration Rate > 60 mL/min (>60) Glucose Level 115 MG/DL (74-106) H Calcium Level 8.3 MG/DL (8.5-10.1) L Phosphorus Level 2.4 MG/DL (2.5-4.9) L Magnesium Level 1.8 MG/DL (1.8-2.4) Plan Problems: (1) History of cirrhosis (2) Pancreatitis Assessment & Plan: This is a 64-year-old male with known history of cirrhosis and identified to have pancreatitis aggressive encephalopathy admitted for the care management. Labs noted. No current imaging available. Imaging ordered. Ultrasound abdomen. Abdominal distention fluid potentially ascites may need tap. Afebrile hemodynamic stable labs noted shift identified. LFTs noted. Okay for diet from surgical standpoint. Will follow with recommendations as imaging and orders available. Pt presented on admission with Edema Bilat Lower Extremity,Ulcer Medial R tibia. Haemosiderin Stain with Xerotic Skin and scattered hyperkeratotic plaques. Both feet are cool to touch. Wound Medial R lower extremity;just inferior to Knee. Wound is moist,sarai with Biofilm. Small area of Necrosis clockwise along borders @8o'clock. Borders are irregular,and macerated.Wound oozing serous exuda te.(L)3.4cm x (W)2.2cm x (D)0.3cm. Mild odor noted. Pt stated having wound for 3months. Dried sanguineous exudate noted to nail matrix of R 1st, 2nd,3rd,4th and 5th metatarsals. Post cleansing ,pt noted to have several small lacerations. In addition, small laceration noted at base, plantar R 1st metatarsal. Pt stated" I confess, I have been using a nail to pick at my toenails." In addition, several linear cuts noted to plantar R Heel. Education provided to pt of risks for infection,or worse secondary to compromised circulation in lower extremities. Pt also given education on skin care to promote skin integrity and preventing ulcerations. Encouraged to keep legs elevated while sitting or while in bed. Tx.Plan: Wash and moisturize both lower extremities Daily and prn. Cleanse wound R lower extremity with Saline. Apply Silvasorb Gel. Apply Maxsorb Extra . Cover with ABD Pad. Wrap with Kerlix from Base of Toes to below Knee Daily and prn. Apply Betadine to Nail Matrixes of toes R foot, Plantar R 1st metatarsal and Plantar R Heel Daily. Elevate Both Lower Extremities with Pillows. (3) Encephalopathy Declan Cole May 12, 2020 12:25
--- NOTE | 2020-05-12 12:57 | General Progress Note ---
Subjective ROS Limited/Unobtainable: No Allergies: Coded Allergies: No Known Allergies (Unverified , 05/05/20) Objective Last 24 Hour Vital Signs Date Time Temp Pulse Resp B/P (MAP) Pulse Ox O2 Delivery O2 Flow Rate FiO2 05/12/20 12:00 97.6 51 19 104/61 (75) 98 05/12/20 09:00 Room Air 05/12/20 09:00 60 107/63 05/12/20 08:00 98.5 60 19 107/63 (78) 98 05/12/20 04:00 98.9 62 18 100/60 (73) 96 05/12/20 00:00 98.9 66 18 112/61 (78) 97 05/11/20 21:00 Room Air 05/11/20 20:00 98.5 61 18 103/62 (76) 98 05/11/20 17:41 75 101/53 05/11/20 16:00 97.5 75 20 101/53 (69) 97 Intake and Output 05/11/20 05/12/20 19:00 07:00 Intake Total 720 ml 480 ml Output Total 800 ml Balance 720 ml -320 ml Intake Oral 720 ml 480 ml Output Urine Total 800 ml # Voids 4 2 Laboratory Tests 05/12/20 06:00: White Blood Count 4.1L, Red Blood Count 4.31L, Hemoglobin 11.9L, Hematocrit 37.5L, Mean Corpuscular Volume 87, Mean Corpuscular Hemoglobin 27.7, Mean Corpuscular Hemoglobin Concent 31.9L, Red Cell Distribution Width 17.9H, Platelet Count 58L, Mean Platelet Volume 9.4, Neutrophils (%) (Auto) , Lymphocytes (%) (Auto) , Monocytes (%) (Auto) , Eosinophils (%) (Auto) , Basophils (%) (Auto) , Differential Total Cells Counted 100, Neutrophils % (Manual) 64, Lymphocytes % (Manual) 26, Monocytes % (Manual) 9, Eosinophils % (Manual) 1, Basophils % (Manual) 0, Band Neutrophils 0, Platelet Estimate DecreasedL, Platelet Morphology Normal, Anisocytosis 1+, Macrocytosis , Sodium Level 141, Potassium Level 3.6, Chloride Level 110H, Carbon Dioxide Level 23, Anion Gap 8, Blood Urea Nitrogen 17, Creatinine 1.0, Estimat Glomerular Filtration Rate > 60, Glucose Level 115H, Calcium Level 8.3L, Phosphorus Level 2.4L, Magnesium Level 1.8 Height (Feet): 5 Height (Inches): 9.00 Weight (Pounds): 217 General Appearance: no apparent distress EENT: PERRL/EOMI Neck: supple Cardiovascular: normal rate Respiratory/Chest: decreased breath sounds Abdomen: hypoactive bowel sounds Extremities: non-tender Assessment/Plan Problem List: (1) History of cirrhosis ICD Codes: Z87.19 - Personal history of other diseases of the digestive system SNOMED: 493020952 (2) Pancreatitis ICD Codes: K85.90 - Acute pancreatitis without necrosis or infection, unspecified SNOMED: 89426285 (3) Encephalopathy ICD Codes: G93.40 - Encephalopathy, unspecified SNOMED: 59311524 (4) Cholelithiasis ICD Codes: K80.20 - Calculus of gallbladder without cholecystitis without obstruction SNOMED: 185748335 Assessment/Plan: us reviewed on diet hep c + needs out patient fu lactulose will fu Clarence Morelos MD May 12, 2020 12:57
[2020-05-12] MEDS: cefTRIAXone 2 GM in D5W 55 ML IVPB SCH (14:17)
[2020-05-12 16:00] VITALS: BP 100/59
--- NOTE | 2020-05-12 18:46 | Internal Med Progress Note ---
Subjective Physician Name Robert Amato Attending Physician Robert Amato M.D. Current Medications Medications (Trade) Dose Ordered Sig/Mirian Route PRN Reason Start Time Stop Time Status Last Admin Dose Admin Acetaminophen (Tylenol) 500 mg Q4H PRN ORAL Temp >100.5 05/11/20 09:30 06/10/20 09:29 05/11/20 09:28 Ascorbic Acid (Vitamin C) 500 mg DAILY ORAL 05/06/20 09:00 06/05/20 08:59 05/12/20 09:33 Ceftriaxone Sodium 2 gm/ Dextrose 55 ml @ 110 mls/hr Q24H IVPB 05/11/20 15:00 05/18/20 14:59 05/12/20 14:17 Clobetasol Propionate (Temovate) 1 applic TWICE A DAY TOPIC 05/08/20 11:00 08/06/20 10:59 05/12/20 18:09 Ferrous Sulfate (Feosol) 325 mg DAILY ORAL 05/06/20 09:00 08/04/20 08:59 05/12/20 09:33 Gabapentin (Neurontin) 100 mg THREE TIMES A DAY ORAL 05/06/20 09:00 06/05/20 08:59 05/12/20 18:09 Lactulose (Cephulac) 20 gm BID ORAL 05/10/20 18:00 06/09/20 17:59 05/12/20 18:09 Propranolol HCl (Inderal) 10 mg THREE TIMES A DAY ORAL 05/06/20 09:00 06/05/20 08:59 05/09/20 17:30 Sertraline HCl (Zoloft) 100 mg DAILY ORAL 05/06/20 09:00 06/05/20 08:59 05/12/20 09:33 Spironolactone (Aldactone) 25 mg DAILY ORAL 05/06/20 09:00 06/05/20 08:59 05/12/20 09:33 Zinc Sulfate (Zinc Sulfate) 220 mg DAILY ORAL 05/06/20 09:00 08/04/20 08:59 05/12/20 09:33 Allergies: Coded Allergies: No Known Allergies (Unverified , 05/05/20) Subjective febrile this morning UA urine cx chex xray ID consult no abd pain no nausea Impression: Evidence of hepatic cirrhosis, with coarsened echogenicity and surface nodularity Splenomegaly Cholelithiasis. Negative for dilated ducts Bilateral renal cysts incidentally noted Objective Last Vital Signs Date Time Temp Pulse Resp B/P (MAP) Pulse Ox O2 Delivery O2 Flow Rate FiO2 05/12/20 18:00 65 100/59 05/12/20 16:00 97.8 20 98 05/12/20 09:00 Room Air 05/05/20 13:41 98 Laboratory Tests Test 05/12/20 06:00 White Blood Count 4.1 K/UL (4.8-10.8) L Red Blood Count 4.31 M/UL (4.70-6.10) L Hemoglobin 11.9 G/DL (14.2-18.0) L Hematocrit 37.5 % (42.0-52.0) L Mean Corpuscular Volume 87 FL (80-99) Mean Corpuscular Hemoglobin 27.7 PG (27.0-31.0) Mean Corpuscular Hemoglobin Concent 31.9 G/DL (32.0-36.0) L Red Cell Distribution Width 17.9 % (11.6-14.8) H Platelet Count 58 K/UL (150-450) L Mean Platelet Volume 9.4 FL (6.5-10.1) Neutrophils (%) (Auto) % (45.0-75.0) Lymphocytes (%) (Auto) % (20.0-45.0) Monocytes (%) (Auto) % (1.0-10.0) Eosinophils (%) (Auto) % (0.0-3.0) Basophils (%) (Auto) % (0.0-2.0) Differential Total Cells Counted 100 Neutrophils % (Manual) 64 % (45-75) Lymphocytes % (Manual) 26 % (20-45) Monocytes % (Manual) 9 % (1-10) Eosinophils % (Manual) 1 % (0-3) Basophils % (Manual) 0 % (0-2) Band Neutrophils 0 % (0-8) Platelet Estimate Decreased L Platelet Morphology Normal Anisocytosis 1+ Macrocytosis Sodium Level 141 MMOL/L (136-145) Potassium Level 3.6 MMOL/L (3.5-5.1) Chloride Level 110 MMOL/L (98-107) H Carbon Dioxide Level 23 MMOL/L (21-32) Anion Gap 8 mmol/L (5-15) Blood Urea Nitrogen 17 mg/dL (7-18) Creatinine 1.0 MG/DL (0.55-1.30) Estimat Glomerular Filtration Rate > 60 mL/min (>60) Glucose Level 115 MG/DL (74-106) H Calcium Level 8.3 MG/DL (8.5-10.1) L Phosphorus Level 2.4 MG/DL (2.5-4.9) L Magnesium Level 1.8 MG/DL (1.8-2.4) Microbiology Date/Time Source Procedure Growth Status 05/11/20 11:00 Urine,Clean Catch Urine Culture - Preliminary Gram Positive Cocci Resulted Intake and Output 05/11/20 05/12/20 19:00 07:00 Intake Total 720 ml 480 ml Output Total 800 ml Balance 720 ml -320 ml Intake Oral 720 ml 480 ml Output Urine Total 800 ml # Voids 4 2 Objective General appearance: alert, cooperative, no distress, appears stated age Head: Normocephalic, without obvious abnormality, atraumatic Eyes: conjunctivae/corneas clear. PERRL, EOM's intact. Fundi benign Throat: Lips, mucosa, and tongue normal. Teeth and gums normal Neck: supple, symmetrical, trachea midline, no adenopathy, thyroid: not enlarged, symmetric, no tenderness/mass/nodules, no carotid bruit and no JVD Lungs: clear to auscultation bilaterally Heart: regular rate and rhythm, S1, S2 normal, no murmur, click, rub or gallop Abdomen: soft, non-tender. Bowel sounds normal. No masses, no organomegaly Extremities: extremities normal, atraumatic, no cyanosis or edema Pulses: 2+ and symmetric Skin: Skin color, texture, turgor normal. No rashes or lesions Neurologic: Grossly normal Assessment/Plan Assessment/Plan #hepatitis C cirrhosis #Elevated lipase #hypertension #cirrhosis #anemia, #behavioral disorder #fevers - UA - urine cx - chest xray - ID consult - GI eval - gen surg eval - trend lipase - monitor LFTS - abd US - resume [employer] meds - monitor lytes - propanalol 10 TID - aldactone 25mg daily Time spent 45 min Robert Amato M.D. May 12, 2020 18:41
[2020-05-12 20:00] VITALS: BP 108/65
[2020-05-13] VITALS: BP 114/65
[2020-05-13 04:00] VITALS: BP 96/58
[2020-05-13 06:36] LABS: HEMATOCRIT 35.1 % (42.0-52.0); HEMOGLOBIN 11.2 G/DL (14.2-18.0); MEAN CORPUSCULAR VOLUME 86 FL (80-99); PLATELET COUNT 52 K/UL (150-450); RED CELL DISTRIBUTION WIDTH 17.7 % (11.6-14.8); WHITE BLOOD COUNT 3.7 K/UL (4.8-10.8)
[2020-05-13 07:06] LABS: ALANINE AMINOTRANSFERASE 50 U/L (12-78); ALBUMIN 2.3 G/DL (3.4-5.0); ALBUMIN/GLOBULIN RATIO 0.6 (1.0-2.7); ALKALINE PHOSPHATASE 73 U/L (46-116); AMYLASE 74 U/L (25-115); ANION GAP 8 mmol/L (5-15); ASPARTATE AMINO TRANSFERASE 53 U/L (15-37); BILIRUBIN,TOTAL 0.5 MG/DL (0.2-1.0); BLOOD UREA NITROGEN 19 mg/dL (7-18); CALCIUM 8.1 MG/DL (8.5-10.1); CARBON DIOXIDE 23 MMOL/L (21-32); CHLORIDE 111 MMOL/L (98-107); POTASSIUM 3.8 MMOL/L (3.5-5.1); SODIUM 142 MMOL/L (136-145)
[2020-05-13 08:00] VITALS: BP 98/60
[2020-05-13] MEDS: Spironolactone 25mg tab ORAL SCH (08:52)
[2020-05-13] MEDS: Propranolol 10mg tab ORAL SCH ×3 (08:52→16:51)
[2020-05-13] MEDS: Zinc Sulfate 220mg ORAL SCH (08:53)
[2020-05-13] MEDS: Lactulose 20gm/30ml UDC ORAL SCH ×2 (08:53→16:51)
[2020-05-13] MEDS: Ascorbic Acid 500mg tab ORAL SCH (08:53)
[2020-05-13] MEDS: Sertraline 100mg tab ORAL SCH (08:53)
[2020-05-13] MEDS: CLOBETASOL 0.05% TOPIC SCH ×2 (08:59→18:01)
--- NOTE | 2020-05-13 09:40 | Pulmonology Progress Note ---
Subjective ROS Limited/Unobtainable: No Interval Events: none major reported per nursing Constitutional: Reports: no symptoms, fever, other - fever resolved; feels better HEENT: Repors: no symptoms Respiratory: Reports: no symptoms Cardiovascular: Reports: no symptoms Gastrointestinal/Abdominal: Reports: no symptoms Genitourinary: Reports: no symptoms Neurologic: Reports: no symptoms Allergies: Coded Allergies: No Known Allergies (Unverified , 05/05/20) Objective Last 24 Hour Vital Signs Date Time Temp Pulse Resp B/P (MAP) Pulse Ox O2 Delivery O2 Flow Rate FiO2 05/13/20 08:52 65 98/60 05/13/20 08:00 97.8 65 18 98/60 (73) 97 05/13/20 04:00 98.2 57 18 96/58 (71) 97 05/13/20 00:00 97.8 64 19 114/65 (81) 97 05/12/20 21:00 Room Air 05/12/20 20:00 97.6 66 19 108/65 (79) 98 05/12/20 18:00 65 100/59 05/12/20 16:00 97.8 65 20 100/59 (73) 98 05/12/20 13:00 51 104/61 05/12/20 12:00 97.6 51 19 104/61 (75) 98 Intake and Output 05/12/20 05/13/20 19:00 07:00 Intake Total 1015 ml 360 ml Output Total 300 ml Balance 715 ml 360 ml Intake Oral 960 ml 360 ml IV Total 55 ml Output Urine Total 300 ml # Voids 3 4 General Appearance: no acute distress HEENT: normocephalic Respiratory: chest wall non-tender, lungs clear Cardiovascular: normal peripheral pulses, normal rate Abdomen: normal bowel sounds, soft, non tender Microbiology Date/Time Source Procedure Growth Status 05/11/20 20:30 Blood Blood Culture - Preliminary NO GROWTH AFTER 24 HOURS Resulted 05/11/20 20:15 Blood Blood Culture - Preliminary NO GROWTH AFTER 24 HOURS Resulted 05/11/20 11:00 Urine,Clean Catch Urine Culture - Preliminary Strep Species, Gamma-Hemolytic Resulted Laboratory Tests 05/13/20 05:50: White Blood Count 3.7L, Red Blood Count 4.10L, Hemoglobin 11.2L, Hematocrit 35.1 L, Mean Corpuscular Volume 86, Mean Corpuscular Hemoglobin 27.3, Mean Corpuscular Hemoglobin Concent 31.9L, Red Cell Distribution Width 17.7H, Platelet Count 52L, Mean Platelet Volume 9.6, Neutrophils (%) (Auto) , Lymphocytes (%) (Auto) , Monocytes (%) (Auto) , Eosinophils (%) (Auto) , Basophils (%) (Auto) , Differential Total Cells Counted 100, Neutrophils % (Manual) 55, Lymphocytes % (Manual) 32, Monocytes % (Manual) 8, Eosinophils % (Manual) 5H, Basophils % (Manual) 0, Band Neutrophils 0, Platelet Estimate DecreasedL, Platelet Morphology Normal, Anisocytosis 1+, Erythrocyte Sedimentation Rate 25H, Sodium Level 142, Potassium Level 3.8, Chloride Level 111H, Carbon Dioxide Level 23, Anion Gap 8, Blood Urea Nitrogen 19H, Creatinine 1.0, Estimat Glomerular Filtration Rate > 60, Glucose Level 90, Calcium Level 8.1L, Total Bilirubin 0.5, Aspartate Amino Transf (AST/SGOT) 53H, Alanine Aminotransferase (ALT/SGPT) 50, Alkaline Phosphatase 73, C-Reactive Protein, Quantitative 6.1H, Total Protein 6.1L, Albumin 2.3L, Globulin 3.8, Albumin/Globulin Ratio 0.6L, Amylase Level 74, Lipase 376 Current Medications Medications (Trade) Dose Ordered Sig/Mirian Route PRN Reason Start Time Stop Time Status Last Admin Dose Admin Acetaminophen (Tylenol) 500 mg Q4H PRN ORAL Temp >100.5 05/11/20 09:30 06/10/20 09:29 05/11/20 09:28 Ascorbic Acid (Vitamin C) 500 mg DAILY ORAL 05/06/20 09:00 06/05/20 08:59 05/13/20 08:53 Ceftriaxone Sodium 2 gm/ Dextrose 55 ml @ 110 mls/hr Q24H IVPB 05/11/20 15:00 05/18/20 14:59 05/12/20 14:17 Clobetasol Propionate (Temovate) 1 applic TWICE A DAY TOPIC 05/08/20 11:00 08/06/20 10:59 05/13/20 08:59 Ferrous Sulfate (Feosol) 325 mg DAILY ORAL 05/06/20 09:00 08/04/20 08:59 05/13/20 08:53 Gabapentin (Neurontin) 100 mg THREE TIMES A DAY ORAL 05/06/20 09:00 06/05/20 08:59 05/13/20 08:53 Lactulose (Cephulac) 20 gm BID ORAL 05/10/20 18:00 06/09/20 17:59 05/12/20 18:09 Propranolol HCl (Inderal) 10 mg THREE TIMES A DAY ORAL 05/06/20 09:00 06/05/20 08:59 05/09/20 17:30 Sertraline HCl (Zoloft) 100 mg DAILY ORAL 05/06/20 09:00 06/05/20 08:59 05/13/20 08:53 Spironolactone (Aldactone) 25 mg DAILY ORAL 05/06/20 09:00 06/05/20 08:59 05/12/20 09:33 Zinc Sulfate (Zinc Sulfate) 220 mg DAILY ORAL 05/06/20 09:00 08/04/20 08:59 05/13/20 08:53 Assessment/Plan Assessment/Plan 1. Nicotine dependence -Patient education on smoking cessation 2. Normoxemia - CXR (05/11) Linear atelectasis or scarring in the right lung -> monitor given normoxemia 3. COVID-19 negative (04/30) 4. Pancreatitis - Seen by surgery, GI - tolerating diet 5. Hep C Ab (+) - outpatient f/u per GI 6. Sepsis with fever; afebrile now - on empiric ceftriaxone per ID - UCx strep species, gamma hemolytic - BCx neg Respiratory status is stable Saturating well on RA The care for this patient was discussed with my supervising physician Time spent for this case was approximately 31 mionAnthony Heard May 13, 2020 09:40
--- NOTE | 2020-05-13 10:19 | Surgery Progress Note ---
Surgery Progress Note Subjective Symptoms: improved, tolerating diet, passing flatus Objective Last 24 Hour Vital Signs Date Time Temp Pulse Resp B/P (MAP) Pulse Ox O2 Delivery O2 Flow Rate FiO2 05/13/20 08:52 65 98/60 05/13/20 08:00 97.8 65 18 98/60 (73) 97 05/13/20 04:00 98.2 57 18 96/58 (71) 97 05/13/20 00:00 97.8 64 19 114/65 (81) 97 05/12/20 21:00 Room Air 05/12/20 20:00 97.6 66 19 108/65 (79) 98 05/12/20 18:00 65 100/59 05/12/20 16:00 97.8 65 20 100/59 (73) 98 05/12/20 13:00 51 104/61 05/12/20 12:00 97.6 51 19 104/61 (75) 98 I&O Intake and Output 05/12/20 05/13/20 19:00 07:00 Intake Total 1015 ml 360 ml Output Total 300 ml Balance 715 ml 360 ml Intake Oral 960 ml 360 ml IV Total 55 ml Output Urine Total 300 ml # Voids 3 4 Dressing: saturated Cardiovascular: RSR Respiratory: decreased breath sounds Abdomen: soft, non-tender, present bowel sounds, non-distended Extremities: no edema, no tenderness, no cyanosis Laboratory Tests Test 05/13/20 05:50 White Blood Count 3.7 K/UL (4.8-10.8) L Red Blood Count 4.10 M/UL (4.70-6.10) L Hemoglobin 11.2 G/DL (14.2-18.0) L Hematocrit 35.1 % (42.0-52.0) L Mean Corpuscular Volume 86 FL (80-99) Mean Corpuscular Hemoglobin 27.3 PG (27.0-31.0) Mean Corpuscular Hemoglobin Concent 31.9 G/DL (32.0-36.0) L Red Cell Distribution Width 17.7 % (11.6-14.8) H Platelet Count 52 K/UL (150-450) L Mean Platelet Volume 9.6 FL (6.5-10.1) Neutrophils (%) (Auto) % (45.0-75.0) Lymphocytes (%) (Auto) % (20.0-45.0) Monocytes (%) (Auto) % (1.0-10.0) Eosinophils (%) (Auto) % (0.0-3.0) Basophils (%) (Auto) % (0.0-2.0) Differential Total Cells Counted 100 Neutrophils % (Manual) 55 % (45-75) Lymphocytes % (Manual) 32 % (20-45) Monocytes % (Manual) 8 % (1-10) Eosinophils % (Manual) 5 % (0-3) H Basophils % (Manual) 0 % (0-2) Band Neutrophils 0 % (0-8) Platelet Estimate Decreased L Platelet Morphology Normal Anisocytosis 1+ Erythrocyte Sedimentation Rate 25 MM/HR (0-20) H Sodium Level 142 MMOL/L (136-145) Potassium Level 3.8 MMOL/L (3.5-5.1) Chloride Level 111 MMOL/L (98-107) H Carbon Dioxide Level 23 MMOL/L (21-32) Anion Gap 8 mmol/L (5-15) Blood Urea Nitrogen 19 mg/dL (7-18) H Creatinine 1.0 MG/DL (0.55-1.30) Estimat Glomerular Filtration Rate > 60 mL/min (>60) Glucose Level 90 MG/DL (74-106) Calcium Level 8.1 MG/DL (8.5-10.1) L Total Bilirubin 0.5 MG/DL (0.2-1.0) Aspartate Amino Transf (AST/SGOT) 53 U/L (15-37) H Alanine Aminotransferase (ALT/SGPT) 50 U/L (12-78) Alkaline Phosphatase 73 U/L (46-116) C-Reactive Protein, Quantitative 6.1 mg/dL (0.00-0.90) H Total Protein 6.1 G/DL (6.4-8.2) L Albumin 2.3 G/DL (3.4-5.0) L Globulin 3.8 g/dL Albumin/Globulin Ratio 0.6 (1.0-2.7) L Amylase Level 74 U/L (25-115) Lipase 376 U/L (73-393) Plan Problems: (1) History of cirrhosis (2) Pancreatitis Assessment & Plan: This is a 64-year-old male with known history of cirrhosis and identified to have pancreatitis aggressive encephalopathy admitted for the care management. Labs noted. No current imaging available. Imaging ordered. Ultrasound abdomen. Abdominal distention fluid potentially ascites may need tap. Afebrile hemodynamic stable labs noted shift identified. LFTs noted. Okay for diet from surgical standpoint. Will follow with recommendations as imaging and orders available. Pt presented on admission with Edema Bilat Lower Extremity,Ulcer Medial R tibia. Haemosiderin Stain with Xerotic Skin and scattered hyperkeratotic plaques. Both feet are cool to touch. Wound Medial R lower extremity;just inferior to Knee. Wound is moist,sarai with Biofilm. Small area of Necrosis clockwise along borders @8o'clock. Borders are irregular,and macerated.Wound oozing serous ex udate.(L)3.4cm x (W)2.2cm x (D)0.3cm. Mild odor noted. Pt stated having wound for 3months. Dried sanguineous exudate noted to nail matrix of R 1st, 2nd,3rd,4th and 5th metatarsals. Post cleansing ,pt noted to have several small lacerations. In addition, small laceration noted at base, plantar R 1st metatarsal. Pt stated" I confess, I have been using a nail to pick at my toenails." In addition, several linear cuts noted to plantar R Heel. Education provided to pt of risks for infection,or worse secondary to compromised circulation in lower extremities. Pt also given education on skin care to promote skin integrity and preventing ulce rations. Encouraged to keep legs elevated while sitting or while in bed. Tx.Plan: Wash and moisturize both lower extremities Daily and prn. Cleanse wound R lower extremity with Saline. Apply Silvasorb Gel. Apply Maxsorb Extra . Cover with ABD Pad. Wrap with Kerlix from Base of Toes to below Knee Daily and prn. Apply Betadine to Nail Matrixes of toes R foot, Plantar R 1st metatarsal and Plantar R Heel Daily. Elevate Both Lower Extremities with Pillows. (3) Encephalopathy Declan Cole May 13, 2020 10:19
--- NOTE | 2020-05-13 10:20 | Infectious Diseases Prog Note ---
Assessment/Plan Assessment/Plan IMPRESSION: Fever, likely sepsis. Acute pancreatitis, improving. cirrhosis of liver. encephalopathy. Hepatitis C, thrombocytopenia, hypertension, anemia, Splenomegaly, Cholelithiasis. 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 Add nitrofurantoin Subjective ROS Limited/Unobtainable: No Constitutional: Reports: no symptoms Respiratory: Reports: no symptoms Gastrointestinal/Abdominal: Reports: no symptoms Genitourinary: Reports: no symptoms Skin: Reports: ulcer, other - R leg Allergies: Coded Allergies: No Known Allergies (Unverified , 05/05/20) Objective Last 24 Hour Vital Signs Date Time Temp Pulse Resp B/P (MAP) Pulse Ox O2 Delivery O2 Flow Rate FiO2 05/13/20 08:52 65 98/60 05/13/20 08:00 97.8 65 18 98/60 (73) 97 05/13/20 04:00 98.2 57 18 96/58 (71) 97 05/13/20 00:00 97.8 64 19 114/65 (81) 97 05/12/20 21:00 Room Air 05/12/20 20:00 97.6 66 19 108/65 (79) 98 05/12/20 18:00 65 100/59 05/12/20 16:00 97.8 65 20 100/59 (73) 98 05/12/20 13:00 51 104/61 05/12/20 12:00 97.6 51 19 104/61 (75) 98 Height (Feet): 5 Height (Inches): 9.00 Weight (Pounds): 217 HEENT: mucous membranes moist Respiratory/Chest: lungs clear Cardiovascular: normal rate Abdomen: distended Extremities: no edema Skin: ulcers, other - Ulcer & hematoma of R leg Microbiology Date/Time Source Procedure Growth Status 05/11/20 20:30 Blood Blood Culture - Preliminary NO GROWTH AFTER 24 HOURS Resulted 05/11/20 20:15 Blood Blood Culture - Preliminary NO GROWTH AFTER 24 HOURS Resulted 05/11/20 11:00 Urine,Clean Catch Urine Culture - Preliminary Strep Species, Gamma-Hemolytic Resulted Laboratory Tests Test 05/13/20 05:50 White Blood Count 3.7 K/UL (4.8-10.8) L Red Blood Count 4.10 M/UL (4.70-6.10) L Hemoglobin 11.2 G/DL (14.2-18.0) L Hematocrit 35.1 % (42.0-52.0) L Mean Corpuscular Volume 86 FL (80-99) Mean Corpuscular Hemoglobin 27.3 PG (27.0-31.0) Mean Corpuscular Hemoglobin Concent 31.9 G/DL (32.0-36.0) L Red Cell Distribution Width 17.7 % (11.6-14.8) H Platelet Count 52 K/UL (150-450) L Mean Platelet Volume 9.6 FL (6.5-10.1) Neutrophils (%) (Auto) % (45.0-75.0) Lymphocytes (%) (Auto) % (20.0-45.0) Monocytes (%) (Auto) % (1.0-10.0) Eosinophils (%) (Auto) % (0.0-3.0) Basophils (%) (Auto) % (0.0-2.0) Differential Total Cells Counted 100 Neutrophils % (Manual) 55 % (45-75) Lymphocytes % (Manual) 32 % (20-45) Monocytes % (Manual) 8 % (1-10) Eosinophils % (Manual) 5 % (0-3) H Basophils % (Manual) 0 % (0-2) Band Neutrophils 0 % (0-8) Platelet Estimate Decreased L Platelet Morphology Normal Anisocytosis 1+ Erythrocyte Sedimentation Rate 25 MM/HR (0-20) H Sodium Level 142 MMOL/L (136-145) Potassium Level 3.8 MMOL/L (3.5-5.1) Chloride Level 111 MMOL/L (98-107) H Carbon Dioxide Level 23 MMOL/L (21-32) Anion Gap 8 mmol/L (5-15) Blood Urea Nitrogen 19 mg/dL (7-18) H Creatinine 1.0 MG/DL (0.55-1.30) Estimat Glomerular Filtration Rate > 60 mL/min (>60) Glucose Level 90 MG/DL (74-106) Calcium Level 8.1 MG/DL (8.5-10.1) L Total Bilirubin 0.5 MG/DL (0.2-1.0) Aspartate Amino Transf (AST/SGOT) 53 U/L (15-37) H Alanine Aminotransferase (ALT/SGPT) 50 U/L (12-78) Alkaline Phosphatase 73 U/L (46-116) C-Reactive Protein, Quantitative 6.1 mg/dL (0.00-0.90) H Total Protein 6.1 G/DL (6.4-8.2) L Albumin 2.3 G/DL (3.4-5.0) L Globulin 3.8 g/dL Albumin/Globulin Ratio 0.6 (1.0-2.7) L Amylase Level 74 U/L (25-115) Lipase 376 U/L (73-393) Current Medications Medications (Trade) Dose Ordered Sig/Mirian Route PRN Reason Start Time Stop Time Status Last Admin Dose Admin Acetaminophen (Tylenol) 500 mg Q4H PRN ORAL Temp >100.5 05/11/20 09:30 06/10/20 09:29 05/11/20 09:28 Ascorbic Acid (Vitamin C) 500 mg DAILY ORAL 05/06/20 09:00 06/05/20 08:59 05/13/20 08:53 Ceftriaxone Sodium 2 gm/ Dextrose 55 ml @ 110 mls/hr Q24H IVPB 05/11/20 15:00 05/18/20 14:59 05/12/20 14:17 Clobetasol Propionate (Temovate) 1 applic TWICE A DAY TOPIC 05/08/20 11:00 08/06/20 10:59 05/13/20 08:59 Ferrous Sulfate (Feosol) 325 mg DAILY ORAL 05/06/20 09:00 08/04/20 08:59 05/13/20 08:53 Gabapentin (Neurontin) 100 mg THREE TIMES A DAY ORAL 05/06/20 09:00 06/05/20 08:59 05/13/20 08:53 Lactulose (Cephulac) 20 gm BID ORAL 05/10/20 18:00 06/09/20 17:59 05/12/20 18:09 Propranolol HCl (Inderal) 10 mg THREE TIMES A DAY ORAL 05/06/20 09:00 06/05/20 08:59 05/09/20 17:30 Sertraline HCl (Zoloft) 100 mg DAILY ORAL 05/06/20 09:00 06/05/20 08:59 05/13/20 08:53 Spironolactone (Aldactone) 25 mg DAILY ORAL 05/06/20 09:00 06/05/20 08:59 05/12/20 09:33 Zinc Sulfate (Zinc Sulfate) 220 mg DAILY ORAL 05/06/20 09:00 08/04/20 08:59 05/13/20 08:53 Darrian Workman MD May 13, 2020 10:20
[2020-05-13 12:00] VITALS: BP 103/62
[2020-05-13] MEDS: cefTRIAXone 2 GM in D5W 55 ML IVPB SCH (15:40)
[2020-05-13 16:00] VITALS: BP 101/65
--- NOTE | 2020-05-13 16:29 | General Progress Note ---
Subjective ROS Limited/Unobtainable: No Allergies: Coded Allergies: No Known Allergies (Unverified , 05/05/20) Objective Last 24 Hour Vital Signs Date Time Temp Pulse Resp B/P (MAP) Pulse Ox O2 Delivery O2 Flow Rate FiO2 05/13/20 12:39 66 103/62 05/13/20 12:00 98.6 66 18 103/62 (76) 99 05/13/20 09:00 Room Air 05/13/20 08:52 65 98/60 05/13/20 08:00 97.8 65 18 98/60 (73) 97 05/13/20 04:00 98.2 57 18 96/58 (71) 97 05/13/20 00:00 97.8 64 19 114/65 (81) 97 05/12/20 21:00 Room Air 05/12/20 20:00 97.6 66 19 108/65 (79) 98 05/12/20 18:00 65 100/59 Intake and Output 05/12/20 05/13/20 19:00 07:00 Intake Total 1015 ml 360 ml Output Total 300 ml Balance 715 ml 360 ml Intake Oral 960 ml 360 ml IV Total 55 ml Output Urine Total 300 ml # Voids 3 4 Laboratory Tests 05/13/20 05:50: White Blood Count 3.7L, Red Blood Count 4.10L, Hemoglobin 11.2L, Hematocrit 35.1L, Mean Corpuscular Volume 86, Mean Corpuscular Hemoglobin 27.3, Mean Corpuscular Hemoglobin Concent 31.9L, Red Cell Distribution Width 17.7H, Platelet Count 52L, Mean Platelet Volume 9.6, Neutrophils (%) (Auto) , Lymphocytes (%) (Auto) , Monocytes (%) (Auto) , Eosinophils (%) (Auto) , Basophils (%) (Auto) , Differential Total Cells Counted 100, Neutrophils % (Manual) 55, Lymphocytes % (Manual) 32, Monocytes % (Manual) 8, Eosinophils % (Manual) 5H, Basophils % (Manual) 0, Band Neutrophils 0, Platelet Estimate DecreasedL, Platelet Morphology Normal, Anisocytosis 1+, Erythrocyte Sedimentation Rate 25H, Sodium Level 142, Potassium Level 3.8, Chloride Level 111H, Carbon Dioxide Level 23, Anion Gap 8, Blood Urea Nitrogen 19H, Creatinine 1.0, Estimat Glomerular Filtration Rate > 60, Glucose Level 90, Calcium Level 8.1L, Total Bilirubin 0.5, Aspartate Amino Transf (AST/SGOT) 53H, Alanine Aminotransferase (ALT/SGPT) 50, Alkaline Phosphatase 73, C-Reactive Protein, Quantitative 6.1H, Total Protein 6.1L, Albumin 2.3L, Globulin 3.8, Albumin/Globulin Ratio 0.6L, Amylase Level 74, Lipase 376 Height (Feet): 5 Height (Inches): 9.00 Weight (Pounds): 217 General Appearance: no apparent distress EENT: normal ENT inspection Neck: supple Cardiovascular: normal rate Respiratory/Chest: decreased breath sounds Abdomen: hypoactive bowel sounds Extremities: non-tender Assessment/Plan Problem List: (1) History of cirrhosis ICD Codes: Z87.19 - Personal history of other diseases of the digestive system SNOMED: 999180931 (2) Pancreatitis ICD Codes: K85.90 - Acute pancreatitis without necrosis or infection, unspecified SNOMED: 26921491 (3) Encephalopathy ICD Codes: G93.40 - Encephalopathy, unspecified SNOMED: 85119389 (4) Cholelithiasis ICD Codes: K80.20 - Calculus of gallbladder without cholecystitis without obstruction SNOMED: 684773940 Assessment/Plan: us reviewed on diet hep c + needs out patient fu lactulose will fu Clarence Morelos MD May 13, 2020 16:29
--- NOTE | 2020-05-13 18:15 | Internal Med Progress Note ---
Subjective Physician Name Robert Amato Attending Physician Robert Amato M.D. Current Medications Medications (Trade) Dose Ordered Sig/Mirian Route PRN Reason Start Time Stop Time Status Last Admin Dose Admin Acetaminophen (Tylenol) 500 mg Q4H PRN ORAL Temp >100.5 05/11/20 09:30 06/10/20 09:29 05/11/20 09:28 Ascorbic Acid (Vitamin C) 500 mg DAILY ORAL 05/06/20 09:00 06/05/20 08:59 05/13/20 08:53 Ceftriaxone Sodium 2 gm/ Dextrose 55 ml @ 110 mls/hr Q24H IVPB 05/11/20 15:00 05/18/20 14:59 05/13/20 15:40 Clobetasol Propionate (Temovate) 1 applic TWICE A DAY TOPIC 05/08/20 11:00 08/06/20 10:59 05/13/20 18:01 Ferrous Sulfate (Feosol) 325 mg DAILY ORAL 05/06/20 09:00 08/04/20 08:59 05/13/20 08:53 Gabapentin (Neurontin) 100 mg THREE TIMES A DAY ORAL 05/06/20 09:00 06/05/20 08:59 05/13/20 18:00 Lactulose (Cephulac) 20 gm BID ORAL 05/10/20 18:00 06/09/20 17:59 05/12/20 18:09 Nitrofurantoin (Macrobid) 100 mg EVERY 12 HOURS ORAL 05/13/20 11:00 05/20/20 10:59 05/13/20 12:36 Propranolol HCl (Inderal) 10 mg THREE TIMES A DAY ORAL 05/06/20 09:00 06/05/20 08:59 05/09/20 17:30 Sertraline HCl (Zoloft) 100 mg DAILY ORAL 05/06/20 09:00 06/05/20 08:59 05/13/20 08:53 Spironolactone (Aldactone) 25 mg DAILY ORAL 05/06/20 09:00 06/05/20 08:59 05/12/20 09:33 Zinc Sulfate (Zinc Sulfate) 220 mg DAILY ORAL 05/06/20 09:00 08/04/20 08:59 05/13/20 08:53 Allergies: Coded Allergies: No Known Allergies (Unverified , 3/4/21) Subjective febrile this morning UA urine cx chex xray ID consult no abd pain no nausea Impression: Evidence of hepatic cirrhosis, with coarsened echogenicity and surface nodularity Splenomegaly Cholelithiasis. Negative for dilated ducts Bilateral renal cysts incidentally noted Objective Last Vital Signs Date Time Temp Pulse Resp B/P (MAP) Pulse Ox O2 Delivery O2 Flow Rate FiO2 05/13/20 16:51 54 101/65 05/13/20 16:00 97.3 16 96 05/13/20 09:00 Room Air 05/05/20 13:41 98 Laboratory Tests Test 05/13/20 05:50 White Blood Count 3.7 K/UL (4.8-10.8) L Red Blood Count 4.10 M/UL (4.70-6.10) L Hemoglobin 11.2 G/DL (14.2-18.0) L Hematocrit 35.1 % (42.0-52.0) L Mean Corpuscular Volume 86 FL (80-99) Mean Corpuscular Hemoglobin 27.3 PG (27.0-31.0) Mean Corpuscular Hemoglobin Concent 31.9 G/DL (32.0-36.0) L Red Cell Distribution Width 17.7 % (11.6-14.8) H Platelet Count 52 K/UL (150-450) L Mean Platelet Volume 9.6 FL (6.5-10.1) Neutrophils (%) (Auto) % (45.0-75.0) Lymphocytes (%) (Auto) % (20.0-45.0) Monocytes (%) (Auto) % (1.0-10.0) Eosinophils (%) (Auto) % (0.0-3.0) Basophils (%) (Auto) % (0.0-2.0) Differential Total Cells Counted 100 Neutrophils % (Manual) 55 % (45-75) Lymphocytes % (Manual) 32 % (20-45) Monocytes % (Manual) 8 % (1-10) Eosinophils % (Manual) 5 % (0-3) H Basophils % (Manual) 0 % (0-2) Band Neutrophils 0 % (0-8) Platelet Estimate Decreased L Platelet Morphology Normal Anisocytosis 1+ Erythrocyte Sedimentation Rate 25 MM/HR (0-20) H Sodium Level 142 MMOL/L (136-145) Potassium Level 3.8 MMOL/L (3.5-5.1) Chloride Level 111 MMOL/L (98-107) H Carbon Dioxide Level 23 MMOL/L (21-32) Anion Gap 8 mmol/L (5-15) Blood Urea Nitrogen 19 mg/dL (7-18) H Creatinine 1.0 MG/DL (0.55-1.30) Estimat Glomerular Filtration Rate > 60 mL/min (>60) Glucose Level 90 MG/DL (74-106) Calcium Level 8.1 MG/DL (8.5-10.1) L Total Bilirubin 0.5 MG/DL (0.2-1.0) Aspartate Amino Transf (AST/SGOT) 53 U/L (15-37) H Alanine Aminotransferase (ALT/SGPT) 50 U/L (12-78) Alkaline Phosphatase 73 U/L (46-116) C-Reactive Protein, Quantitative 6.1 mg/dL (0.00-0.90) H Total Protein 6.1 G/DL (6.4-8.2) L Albumin 2.3 G/DL (3.4-5.0) L Globulin 3.8 g/dL Albumin/Globulin Ratio 0.6 (1.0-2.7) L Amylase Level 74 U/L (25-115) Lipase 376 U/L (73-393) Microbiology Date/Time Source Procedure Growth Status 05/11/20 20:30 Blood Blood Culture - Preliminary NO GROWTH AFTER 24 HOURS Resulted 05/11/20 20:15 Blood Blood Culture - Preliminary NO GROWTH AFTER 24 HOURS Resulted 05/11/20 11:00 Urine,Clean Catch Urine Culture - Preliminary Strep Species, Gamma-Hemolytic Resulted Intake and Output 05/12/20 05/13/20 19:00 07:00 Intake Total 1015 ml 360 ml Output Total 300 ml Balance 715 ml 360 ml Intake Oral 960 ml 360 ml IV Total 55 ml Output Urine Total 300 ml # Voids 3 4 Objective General appearance: alert, cooperative, no distress, appears stated age Head: Normocephalic, without obvious abnormality, atraumatic Eyes: conjunctivae/corneas clear. PERRL, EOM's intact. Fundi benign Throat: Lips, mucosa, and tongue normal. Teeth and gums normal Neck: supple, symmetrical, trachea midline, no adenopathy, thyroid: not enlarged, symmetric, no tenderness/mass/nodules, no carotid bruit and no JVD Lungs: clear to auscultation bilaterally Heart: regular rate and rhythm, S1, S2 normal, no murmur, click, rub or gallop Abdomen: soft, non-tender. Bowel sounds normal. No masses, no organomegaly Extremities: extremities normal, atraumatic, no cyanosis or edema Pulses: 2+ and symmetric Skin: Skin color, texture, turgor normal. No rashes or lesions Neurologic: Grossly normal Assessment/Plan Assessment/Plan #hepatitis C cirrhosis #Elevated lipase #hypertension #cirrhosis #anemia, #behavioral disorder #fevers - UA - urine cx - chest xray - ID consult - GI eval - gen surg eval - trend lipase - monitor LFTS - abd US - resume [employer] meds - monitor lytes - propanalol 10 TID - aldactone 25mg daily Time spent 45 min Robert Amato M.D. May 13, 2020 18:15
[2020-05-13 20:00] VITALS: BP 98/65
[2020-05-14] VITALS: BP 95/60
[2020-05-14 04:00] VITALS: BP 106/57
[2020-05-14 08:00] VITALS: BP 102/66
[2020-05-14] MEDS: Sertraline 100mg tab ORAL SCH (08:27)
[2020-05-14] MEDS: Lactulose 20gm/30ml UDC ORAL SCH ×2 (08:27→17:29)
[2020-05-14] MEDS: Zinc Sulfate 220mg ORAL SCH (08:28)
[2020-05-14] MEDS: Spironolactone 25mg tab ORAL SCH (08:28)
[2020-05-14] MEDS: Ascorbic Acid 500mg tab ORAL SCH (08:28)
[2020-05-14] MEDS: CLOBETASOL 0.05% TOPIC SCH ×2 (08:29→17:30)
[2020-05-14] MEDS: Propranolol 10mg tab ORAL SCH ×3 (08:30→17:29)
--- NOTE | 2020-05-14 11:02 | Pulmonology Progress Note ---
Subjective ROS Limited/Unobtainable: No Interval Events: none major reported per nursing Constitutional: Reports: no symptoms HEENT: Repors: no symptoms Respiratory: Reports: no symptoms Cardiovascular: Reports: no symptoms Gastrointestinal/Abdominal: Reports: no symptoms Genitourinary: Reports: no symptoms Neurologic: Reports: no symptoms Skin: Reports: ulcer, other - R leg Allergies: Coded Allergies: No Known Allergies (Unverified , 05/05/20) Objective Last 24 Hour Vital Signs Date Time Temp Pulse Resp B/P (MAP) Pulse Ox O2 Delivery O2 Flow Rate FiO2 05/14/20 09:00 Room Air 05/14/20 08:30 78 102/66 05/14/20 08:00 97.5 59 19 102/66 (78) 99 05/14/20 04:00 97.2 55 16 106/57 (73) 97 05/14/20 00:00 96.4 58 16 95/60 (72) 97 05/13/20 21:00 Room Air 05/13/20 20:00 96.7 54 17 98/65 (76) 97 05/13/20 16:51 54 101/65 05/13/20 16:00 97.3 54 16 101/65 (77) 96 05/13/20 12:39 66 103/62 05/13/20 12:00 98.6 66 18 103/62 (76) 99 Intake and Output 05/13/20 05/14/20 19:00 07:00 Intake Total 590 ml 480 ml Output Total 1750 ml Balance 590 ml -1270 ml Intake Oral 480 ml 480 ml IV Total 110 ml Output Urine Total 1750 ml # Voids 4 4 # Bowel Movements 1 General Appearance: no acute distress HEENT: normocephalic Respiratory: chest wall non-tender, lungs clear Cardiovascular: normal peripheral pulses, normal rate Abdomen: normal bowel sounds, soft, non tender Microbiology Date/Time Source Procedure Growth Status 05/11/20 20:30 Blood Blood Culture - Preliminary NO GROWTH AFTER 48 HOURS Resulted 05/11/20 20:15 Blood Blood Culture - Preliminary NO GROWTH AFTER 48 HOURS Resulted Current Medications Medications (Trade) Dose Ordered Sig/Mirian Route PRN Reason Start Time Stop Time Status Last Admin Dose Admin Acetaminophen (Tylenol) 500 mg Q4H PRN ORAL Temp >100.5 05/11/20 09:30 06/10/20 09:29 05/11/20 09:28 Ascorbic Acid (Vitamin C) 500 mg DAILY ORAL 05/06/20 09:00 06/05/20 08:59 05/14/20 08:28 Ceftriaxone Sodium 2 gm/ Dextrose 55 ml @ 110 mls/hr Q24H IVPB 05/11/20 15:00 05/18/20 14:59 05/13/20 15:40 Clobetasol Propionate (Temovate) 1 applic TWICE A DAY TOPIC 05/08/20 11:00 08/06/20 10:59 05/14/20 08:29 Ferrous Sulfate (Feosol) 325 mg DAILY ORAL 05/06/20 09:00 08/04/20 08:59 05/14/20 08:27 Gabapentin (Neurontin) 100 mg THREE TIMES A DAY ORAL 05/06/20 09:00 06/05/20 08:59 05/14/20 08:28 Lactulose (Cephulac) 20 gm BID ORAL 05/10/20 18:00 06/09/20 17:59 05/14/20 08:27 Nitrofurantoin (Macrobid) 100 mg EVERY 12 HOURS ORAL 05/13/20 11:00 05/20/20 10:59 05/14/20 08:28 Propranolol HCl (Inderal) 10 mg THREE TIMES A DAY ORAL 05/06/20 09:00 06/05/20 08:59 05/14/20 08:30 Sertraline HCl (Zoloft) 100 mg DAILY ORAL 05/06/20 09:00 06/05/20 08:59 05/14/20 08:27 Spironolactone (Aldactone) 25 mg DAILY ORAL 05/06/20 09:00 06/05/20 08:59 05/14/20 08:28 Zinc Sulfate (Zinc Sulfate) 220 mg DAILY ORAL 05/06/20 09:00 08/04/20 08:59 05/14/20 08:28 Assessment/Plan Assessment/Plan 1. Nicotine dependence -Patient education on smoking cessation 2. Normoxemia - CXR (05/11) Linear atelectasis or scarring in the right lung -> monitor given normoxemia 3. COVID-19 negative (04/30) 4. Pancreatitis - Seen by surgery, GI - tolerating diet 5. Hep C Ab (+) - outpatient f/u per GI 6. Sepsis with fever; afebrile now - on empiric ceftriaxone per ID - UCx strep species, gamma hemolytic - BCx neg Respiratory status is stable Saturating well on RA The care for this patient was discussed with my supervising physician Time spent for this case was approximately 31 mionutes Anthony Cohen May 14, 2020 11:02
--- NOTE | 2020-05-14 11:38 | Surgery Progress Note ---
Surgery Progress Note Subjective Symptoms: improved, tolerating diet, voiding well, passing flatus Objective Last 24 Hour Vital Signs Date Time Temp Pulse Resp B/P (MAP) Pulse Ox O2 Delivery O2 Flow Rate FiO2 05/14/20 09:00 Room Air 05/14/20 08:30 78 102/66 05/14/20 08:00 97.5 59 19 102/66 (78) 99 05/14/20 04:00 97.2 55 16 106/57 (73) 97 05/14/20 00:00 96.4 58 16 95/60 (72) 97 05/13/20 21:00 Room Air 05/13/20 20:00 96.7 54 17 98/65 (76) 97 05/13/20 16:51 54 101/65 05/13/20 16:00 97.3 54 16 101/65 (77) 96 05/13/20 12:39 66 103/62 05/13/20 12:00 98.6 66 18 103/62 (76) 99 I&O Intake and Output 05/13/20 05/14/20 19:00 07:00 Intake Total 590 ml 480 ml Output Total 1750 ml Balance 590 ml -1270 ml Intake Oral 480 ml 480 ml IV Total 110 ml Output Urine Total 1750 ml # Voids 4 4 # Bowel Movements 1 Cardiovascular: RSR Respiratory: clear Abdomen: soft, flat, non-tender, present bowel sounds, non-distended Extremities: no edema, no tenderness, no cyanosis Plan Problems: (1) History of cirrhosis (2) Pancreatitis Assessment & Plan: This is a 64-year-old male with known history of cirrhosis and identified to have pancreatitis aggressive encephalopathy admitted for the care management. Labs noted. No current imaging available. Imaging ordered. Ultrasound abdomen. Abdominal distention fluid potentially ascites may need tap. Afebrile hemodynamic stable labs noted shift identified. LFTs noted. Okay for diet from surgical standpoint. Will follow with recommendations as imaging and orders available. Pt presented on admission with Edema Bilat Lower Extremity,Ulcer Medial R tibia. Haemosiderin Stain with Xerotic Skin and scattered hyperkeratotic plaques. Both feet are cool to touch. Wound Medial R lower extremity;just inferior to Knee. Wound is moist,sarai with Biofilm. Small area of Necrosis clockwise along borders @8o'clock. Borders are irregular,and macerated.Wound oozing serous exudate.(L)3.4cm x (W)2.2cm x (D)0.3cm. Mild odor noted. Pt stated having wound for 3months. Dried sanguineous exudate noted to nail matrix of R 1st, 2nd,3rd,4th and 5th metatarsals. Post cleansing ,pt noted to have several small lacerations. In addition, small laceration noted at base, plantar R 1st metatarsal. Pt stated" I confess, I have been using a nail to pick at my toenails." In addition, several linear cuts noted to plantar R Heel. Education provided to pt of risks for infection,or worse secondary to compromised circulation in lower extremities. Pt also given education on skin care to promote skin integrity and preventing ulcerations. Encouraged to keep legs elevated while sitting or while in bed. Tx.Plan: Wash and moisturize both lower extremities Daily and prn. Cleanse wound R lower extremity with Saline. Apply Silvasorb Gel. Apply Maxsorb Extra . Cover with ABD Pad. Wrap with Kerlix from Base of Toes to below Knee Daily and prn. Apply Betadine to Nail Matrixes of toes R foot, Plantar R 1st metatarsal and Plantar R Heel Daily. Elevate Both Lower Extremities with Pillows. (3) Declan Mike May 14, 2020 11:37
[2020-05-14 12:00] VITALS: BP 110/81
--- NOTE | 2020-05-14 12:44 | Infectious Diseases Prog Note ---
Assessment/Plan Assessment/Plan IMPRESSION: Fever, likely sepsis. Acute pancreatitis, improving. cirrhosis of liver. encephalopathy. Hepatitis C, thrombocytopenia, hypertension, anemia, Splenomegaly, Cholelithiasis. 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 Continue nitrofurantoin Subjective ROS Limited/Unobtainable: No Constitutional: Reports: no symptoms Respiratory: Reports: no symptoms Cardiovascular: Reports: no symptoms Gastrointestinal/Abdominal: Reports: no symptoms Allergies: Coded Allergies: No Known Allergies (Unverified , 05/05/20) Objective Last 24 Hour Vital Signs Date Time Temp Pulse Resp B/P (MAP) Pulse Ox O2 Delivery O2 Flow Rate FiO2 05/14/20 09:00 Room Air 05/14/20 08:30 78 102/66 05/14/20 08:00 97.5 59 19 102/66 (78) 99 05/14/20 04:00 97.2 55 16 106/57 (73) 97 05/14/20 00:00 96.4 58 16 95/60 (72) 97 05/13/20 21:00 Room Air 05/13/20 20:00 96.7 54 17 98/65 (76) 97 05/13/20 16:51 54 101/65 05/13/20 16:00 97.3 54 16 101/65 (77) 96 Height (Feet): 5 Height (Inches): 9.00 Weight (Pounds): 217 HEENT: mucous membranes moist Respiratory/Chest: lungs clear Cardiovascular: normal rate Abdomen: soft, non tender Extremities: no edema Skin: other - right leg bruise & ulcer Neurologic/Psychiatric: alert, responsive Microbiology Date/Time Source Procedure Growth Status 05/11/20 20:30 Blood Blood Culture - Preliminary NO GROWTH AFTER 48 HOURS Resulted 05/11/20 20:15 Blood Blood Culture - Preliminary NO GROWTH AFTER 48 HOURS Resulted Current Medications Medications (Trade) Dose Ordered Sig/Mirian Route PRN Reason Start Time Stop Time Status Last Admin Dose Admin Acetaminophen (Tylenol) 500 mg Q4H PRN ORAL Temp >100.5 05/11/20 09:30 06/10/20 09:29 05/11/20 09:28 Ascorbic Acid (Vitamin C) 500 mg DAILY ORAL 05/06/20 09:00 06/05/20 08:59 05/14/20 08:28 Ceftriaxone Sodium 2 gm/ Dextrose 55 ml @ 110 mls/hr Q24H IVPB 05/11/20 15:00 05/18/20 14:59 05/13/20 15:40 Clobetasol Propionate (Temovate) 1 applic TWICE A DAY TOPIC 05/08/20 11:00 08/06/20 10:59 05/14/20 08:29 Ferrous Sulfate (Feosol) 325 mg DAILY ORAL 05/06/20 09:00 08/04/20 08:59 05/14/20 08:27 Gabapentin (Neurontin) 100 mg THREE TIMES A DAY ORAL 05/06/20 09:00 06/05/20 08:59 05/14/20 08:28 Lactulose (Cephulac) 20 gm BID ORAL 05/10/20 18:00 06/09/20 17:59 05/14/20 08:27 Nitrofurantoin (Macrobid) 100 mg EVERY 12 HOURS ORAL 05/13/20 11:00 05/20/20 10:59 05/14/20 08:28 Propranolol HCl (Inderal) 10 mg THREE TIMES A DAY ORAL 05/06/20 09:00 06/05/20 08:59 05/14/20 08:30 Sertraline HCl (Zoloft) 100 mg DAILY ORAL 05/06/20 09:00 06/05/20 08:59 05/14/20 08:27 Spironolactone (Aldactone) 25 mg DAILY ORAL 05/06/20 09:00 06/05/20 08:59 05/14/20 08:28 Zinc Sulfate (Zinc Sulfate) 220 mg DAILY ORAL 05/06/20 09:00 08/04/20 08:59 05/14/20 08:28 Darrian Workman MD May 14, 2020 12:44
[2020-05-14 16:00] VITALS: BP 113/81
--- NOTE | 2020-05-14 19:58 | Internal Med Progress Note ---
Subjective Physician Name Robert Amato Attending Physician Robert Amato M.D. Current Medications Medications (Trade) Dose Ordered Sig/Mirian Route PRN Reason Start Time Stop Time Status Last Admin Dose Admin Acetaminophen (Tylenol) 500 mg Q4H PRN ORAL Temp >100.5 05/11/20 09:30 06/10/20 09:29 05/11/20 09:28 Ascorbic Acid (Vitamin C) 500 mg DAILY ORAL 05/06/20 09:00 06/05/20 08:59 05/14/20 08:28 Clobetasol Propionate (Temovate) 1 applic TWICE A DAY TOPIC 05/08/20 11:00 08/06/20 10:59 05/14/20 17:30 Ferrous Sulfate (Feosol) 325 mg DAILY ORAL 05/06/20 09:00 08/04/20 08:59 05/14/20 08:27 Gabapentin (Neurontin) 100 mg THREE TIMES A DAY ORAL 05/06/20 09:00 06/05/20 08:59 05/14/20 14:43 Lactulose (Cephulac) 20 gm BID ORAL 05/10/20 18:00 06/09/20 17:59 05/14/20 08:27 Nitrofurantoin (Macrobid) 100 mg EVERY 12 HOURS ORAL 05/13/20 11:00 05/20/20 10:59 05/14/20 08:28 Propranolol HCl (Inderal) 10 mg THREE TIMES A DAY ORAL 05/06/20 09:00 06/05/20 08:59 05/14/20 14:44 Sertraline HCl (Zoloft) 100 mg DAILY ORAL 05/06/20 09:00 06/05/20 08:59 05/14/20 08:27 Spironolactone (Aldactone) 25 mg DAILY ORAL 05/06/20 09:00 06/05/20 08:59 05/14/20 08:28 Zinc Sulfate (Zinc Sulfate) 220 mg DAILY ORAL 05/06/20 09:00 08/04/20 08:59 05/14/20 08:28 Allergies: Coded Allergies: No Known Allergies (Unverified , 05/05/20) Subjective febrile this morning UA urine cx chex xray ID consult no abd pain no nausea Impression: Evidence of hepatic cirrhosis, with coarsened echogenicity and surface nodularity Splenomegaly Cholelithiasis. Negative for dilated ducts Bilateral renal cysts incidentally noted Objective Last Vital Signs Date Time Temp Pulse Resp B/P (MAP) Pulse Ox O2 Delivery O2 Flow Rate FiO2 05/14/20 16:00 98.1 72 17 113/81 (92) 96 05/14/20 09:00 Room Air 05/05/20 13:41 98 Microbiology Date/Time Source Procedure Growth Status 05/11/20 20:30 Blood Blood Culture - Preliminary NO GROWTH AFTER 48 HOURS Resulted 05/11/20 20:15 Blood Blood Culture - Preliminary NO GROWTH AFTER 48 HOURS Resulted Intake and Output 05/13/20 05/14/20 19:00 07:00 Intake Total 590 ml 480 ml Output Total 1750 ml Balance 590 ml -1270 ml Intake Oral 480 ml 480 ml IV Total 110 ml Output Urine Total 1750 ml # Voids 4 4 # Bowel Movements 1 Objective General appearance: alert, cooperative, no distress, appears stated age Head: Normocephalic, without obvious abnormality, atraumatic Eyes: conjunctivae/corneas clear. PERRL, EOM's intact. Fundi benign Throat: Lips, mucosa, and tongue normal. Teeth and gums normal Neck: supple, symmetrical, trachea midline, no adenopathy, thyroid: not enlarged, symmetric, no tenderness/mass/nodules, no carotid bruit and no JVD Lungs: clear to auscultation bilaterally Heart: regular rate and rhythm, S1, S2 normal, no murmur, click, rub or gallop Abdomen: soft, non-tender. Bowel sounds normal. No masses, no organomegaly Extremities: extremities normal, atraumatic, no cyanosis or edema Pulses: 2+ and symmetric Skin: Skin color, texture, turgor normal. 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 May 14, 2020 19:58
[2020-05-14 20:00] VITALS: BP 114/65
[2020-05-15] VITALS: BP 106/60
[2020-05-15 04:00] VITALS: BP 119/63
[2020-05-15 08:11] VITALS: BP 94/57
[2020-05-15] MEDS: Spironolactone 25mg tab ORAL SCH (08:12)
[2020-05-15] MEDS: Lactulose 20gm/30ml UDC ORAL SCH ×2 (08:12→17:12)
[2020-05-15] MEDS: Zinc Sulfate 220mg ORAL SCH (08:13)
[2020-05-15] MEDS: Ascorbic Acid 500mg tab ORAL SCH (08:13)
[2020-05-15] MEDS: Sertraline 100mg tab ORAL SCH (08:14)
[2020-05-15] MEDS: Propranolol 10mg tab ORAL SCH ×3 (08:14→17:29)
[2020-05-15] MEDS: CLOBETASOL 0.05% TOPIC SCH ×2 (08:14→17:30)
--- NOTE | 2020-05-15 09:18 | Pulmonology Progress Note ---
Subjective ROS Limited/Unobtainable: No Interval Events: none major reported per nursing Constitutional: Reports: no symptoms HEENT: Repors: no symptoms Respiratory: Reports: no symptoms Cardiovascular: Reports: no symptoms Gastrointestinal/Abdominal: Reports: no symptoms Genitourinary: Reports: no symptoms Neurologic: Reports: no symptoms Skin: Reports: ulcer, other - R leg Allergies: Coded Allergies: No Known Allergies (Unverified , 05/05/20) Objective Last 24 Hour Vital Signs Date Time Temp Pulse Resp B/P (MAP) Pulse Ox O2 Delivery O2 Flow Rate FiO2 05/15/20 08:14 57 94/57 05/15/20 08:11 97.7 57 16 94/57 (69) 97 05/15/20 04:00 98.1 58 17 119/63 (81) 97 05/15/20 00:00 97.8 60 16 106/60 (75) 96 05/14/20 20:21 Room Air 05/14/20 20:00 98.1 56 18 114/65 (81) 97 05/14/20 16:00 98.1 72 17 113/81 (92) 96 05/14/20 14:44 62 110/81 05/14/20 12:00 97.6 62 18 110/81 (91) 99 l Intake and Output 05/14/20 05/15/20 19:00 07:00 Intake Total 500 ml 480 ml Output Total 800 ml Balance 500 ml -320 ml Intake Oral 480 ml Other 500 ml Output Urine Total 800 ml # Voids 2 General Appearance: no acute distress HEENT: normocephalic Respiratory: chest wall non-tender, lungs clear Cardiovascular: normal peripheral pulses, normal rate Abdomen: normal bowel sounds, soft, non tender Current Medications Medications (Trade) Dose Ordered Sig/Mirian Route PRN Reason Start Time Stop Time Status Last Admin Dose Admin Acetaminophen (Tylenol) 500 mg Q4H PRN ORAL Temp >100.5 05/11/20 09:30 06/10/20 09:29 05/11/20 09:28 Ascorbic Acid (Vitamin C) 500 mg DAILY ORAL 05/06/20 09:00 06/05/20 08:59 05/15/20 08:13 Clobetasol Propionate (Temovate) 1 applic TWICE A DAY TOPIC 05/08/20 11:00 08/06/20 10:59 05/15/20 08:14 Ferrous Sulfate (Feosol) 325 mg DAILY ORAL 05/06/20 09:00 08/04/20 08:59 05/15/20 08:14 Gabapentin (Neurontin) 100 mg THREE TIMES A DAY ORAL 05/06/20 09:00 06/05/20 08:59 05/15/20 08:13 Lactulose (Cephulac) 20 gm BID ORAL 05/10/20 18:00 06/09/20 17:59 05/14/20 08:27 Nitrofurantoin (Macrobid) 100 mg EVERY 12 HOURS ORAL 05/13/20 11:00 05/20/20 10:59 05/15/20 08:13 Propranolol HCl (Inderal) 10 mg THREE TIMES A DAY ORAL 05/06/20 09:00 06/05/20 08:59 05/14/20 14:44 Sertraline HCl (Zoloft) 100 mg DAILY ORAL 05/06/20 09:00 06/05/20 08:59 05/15/20 08:14 Spironolactone (Aldactone) 25 mg DAILY ORAL 05/06/20 09:00 06/05/20 08:59 05/14/20 08:28 Zinc Sulfate (Zinc Sulfate) 220 mg DAILY ORAL 05/06/20 09:00 08/04/20 08:59 05/15/20 08:13 Assessment/Plan Assessment/Plan 1. Nicotine dependence -Patient education on smoking cessation 2. Normoxemia - CXR (05/11) Linear atelectasis or scarring in the right lung -> monitor given normoxemia 3. COVID-19 negative (04/30) 4. Pancreatitis - Seen by surgery, GI - tolerating diet 5. Hep C Ab (+) - outpatient f/u per GI 6. Sepsis with fever; afebrile now - on empiric ceftriaxone per ID - UCx strep species, gamma hemolytic - BCx neg Respiratory status is stable Saturating well on RA Pending COVID-19 PCR result prior to placement The care for this patient was discussed with my supervising physician Time spent for this case was approximately 31 mionutes Anthony Cohen 14, 2021 09:17
--- NOTE | 2020-05-15 11:10 | Surgery Progress Note ---
Surgery Progress Note Subjective Additional Comments pancreatitis resolved no n/v/f/c no abd pain labs improved micro noted resting comfortable Objective Last 24 Hour Vital Signs Date Time Temp Pulse Resp B/P (MAP) Pulse Ox O2 Delivery O2 Flow Rate FiO2 05/15/20 09:00 Room Air 05/15/20 08:14 57 94/57 05/15/20 08:11 97.7 57 16 94/57 (69) 97 05/15/20 04:00 98.1 58 17 119/63 (81) 97 05/15/20 00:00 97.8 60 16 106/60 (75) 96 05/14/20 20:21 Room Air 05/14/20 20:00 98.1 56 18 114/65 (81) 97 05/14/20 16:00 98.1 72 17 113/81 (92) 96 05/14/20 14:44 62 110/81 05/14/20 12:00 97.6 62 18 110/81 (91) 99 I&O Intake and Output 05/14/20 05/15/20 19:00 07:00 Intake Total 500 ml 480 ml Output Total 800 ml Balance 500 ml -320 ml Intake Oral 480 ml Other 500 ml Output Urine Total 800 ml # Voids 2 Cardiovascular: RSR Respiratory: clear Abdomen: soft, flat, non-tender, present bowel sounds, non-distended Extremities: no edema, no tenderness, no cyanosis Plan Problems: (1) History of cirrhosis (2) Pancreatitis Assessment & Plan: This is a 64-year-old male with known history of cirrhosis and identified to have pancreatitis aggressive encephalopathy admitted for the c are management. Labs noted. No current imaging available. Imaging ordered. Ultrasound abdomen. Abdominal distention fluid potentially ascites may need tap. Afebrile hemodynamic stable labs noted shift identified. LFTs noted. Okay for diet from surgical standpoint. Will follow with recommendations as imaging and orders available. Pt presented on admission with Edema Bilat Lower Extremity,Ulcer Medial R tibia. Haemosiderin Stain with Xerotic Skin and scattered hyperkeratotic plaques. Both feet are cool to touch. Wound Medial R lower extremity;just inferior to Knee. Wound is moist,sarai with Biofilm. Small area of Necrosis clockwise along borders @8o'clock. Borders are irregular,and macerated.Wound oozing serous exudate.(L)3.4cm x (W)2.2cm x (D)0.3cm. Mild odor noted. Pt stated having wound for 3months. Dried sanguineous exudate noted to nail matrix of R 1st, 2nd,3rd,4th and 5th metatarsals. Post cleansing ,pt noted to have several small lacerations. In addition, small laceration noted at base, plantar R 1st metatarsal. Pt stated" I confess, I have been using a nail to pick at my toenails." In addition, several linear cuts noted to plantar R Heel. Education provided to pt of risks for infection,or worse secondary to compromised circulation in lower extremities. Pt also given education on skin care to promote skin integrity and preventing ulcerations. Encouraged to keep legs elevated while sitting or while in bed. Tx.Plan: Wash and moisturize both lower extremities Daily and prn. Cleanse wound R lower extremity with Saline. Apply Silvasorb Gel. Apply Maxsorb Extra . Cover with ABD Pad. Wrap with Kerlix from Base of Toes to below Knee Daily and prn. Apply Betadine to Nail Matrixes of toes R foot, Plantar R 1st metatarsal and Plantar R Heel Daily. Elevate Both Lower Extremities with Pillows. pancreatitis resolved doing well no n/v/f/c comfortable (3) Encephalopathy Declan Cole May 15, 2020 11:09
[2020-05-15 11:54] VITALS: BP 141/72
[2020-05-15 16:04] VITALS: BP 132/72
--- NOTE | 2020-05-15 18:55 | Internal Med Progress Note ---
Subjective Physician Name Robert Amato Attending Physician Robert Amato M.D. Current Medications Medications (Trade) Dose Ordered Sig/Mirian Route PRN Reason Start Time Stop Time Status Last Admin Dose Admin Acetaminophen (Tylenol) 500 mg Q4H PRN ORAL Temp >100.5 05/11/20 09:30 06/10/20 09:29 05/11/20 09:28 Ascorbic Acid (Vitamin C) 500 mg DAILY ORAL 05/06/20 09:00 06/05/20 08:59 05/15/20 08:13 Clobetasol Propionate (Temovate) 1 applic TWICE A DAY TOPIC 05/08/20 11:00 08/06/20 10:59 05/15/20 17:30 Ferrous Sulfate (Feosol) 325 mg DAILY ORAL 05/06/20 09:00 08/04/20 08:59 05/15/20 08:14 Gabapentin (Neurontin) 100 mg THREE TIMES A DAY ORAL 05/06/20 09:00 06/05/20 08:59 05/15/20 17:29 Lactulose (Cephulac) 20 gm BID ORAL 05/10/20 18:00 06/09/20 17:59 05/14/20 08:27 Nitrofurantoin (Macrobid) 100 mg EVERY 12 HOURS ORAL 05/13/20 11:00 05/20/20 10:59 05/15/20 08:13 Propranolol HCl (Inderal) 10 mg THREE TIMES A DAY ORAL 05/06/20 09:00 06/05/20 08:59 05/15/20 17:29 Sertraline HCl (Zoloft) 100 mg DAILY ORAL 05/06/20 09:00 06/05/20 08:59 05/15/20 08:14 Spironolactone (Aldactone) 25 mg DAILY ORAL 05/06/20 09:00 06/05/20 08:59 05/14/20 08:28 Zinc Sulfate (Zinc Sulfate) 220 mg DAILY ORAL 05/06/20 09:00 08/04/20 08:59 05/15/20 08:13 Allergies: Coded Allergies: No Known Allergies (Unverified , 05/05/20) Subjective febrile this morning UA urine cx chex xray ID consult no abd pain no nausea Impression: Evidence of hepatic cirrhosis, with coarsened echogenicity and surface nodularity Splenomegaly Cholelithiasis. Negative for dilated ducts Bilateral renal cysts incidentally noted Objective Last Vital Signs Date Time Temp Pulse Resp B/P (MAP) Pulse Ox O2 Delivery O2 Flow Rate FiO2 05/15/20 17:29 73 132/72 05/15/20 16:04 97.1 21 97 05/15/20 09:00 Room Air Intake and Output 05/14/20 05/15/20 19:00 07:00 Intake Total 500 ml 480 ml Output Total 800 ml Balance 500 ml -320 ml Intake Oral 480 ml Other 500 ml Output Urine Total 800 ml # Voids 2 Objective General appearance: alert, cooperative, no distress, appears stated age Head: Normocephalic, without obvious abnormality, atraumatic Eyes: conjunctivae/corneas clear. PERRL, EOM's intact. Fundi benign Throat: Lips, mucosa, and tongue normal. Teeth and gums normal Neck: supple, symmetrical, trachea midline, no adenopathy, thyroid: not enlarged, symmetric, no tenderness/mass/nodules, no carotid bruit and no JVD Lungs: clear to auscultation bilaterally Heart: regular rate and rhythm, S1, S2 normal, no murmur, click, rub or gallop Abdomen: soft, non-tender. Bowel sounds normal. No masses, no organomegaly Extremities: extremities normal, atraumatic, no cyanosis or edema Pulses: 2+ and symmetric Skin: Skin color, texture, turgor normal. 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 May 15, 2020 18:55
[2020-05-15 20:00] VITALS: BP 105/97
[2020-05-16] VITALS: BP 92/54
[2020-05-16 04:00] VITALS: BP 97/64
[2020-05-16 06:34] LABS: HEMATOCRIT 38.4 % (42.0-52.0); HEMOGLOBIN 12.2 G/DL (14.2-18.0); MEAN CORPUSCULAR VOLUME 88 FL (80-99); PLATELET COUNT 61 K/UL (150-450); RED BLOOD COUNT 4.36 M/UL (4.70-6.10); RED CELL DISTRIBUTION WIDTH 17.4 % (11.6-14.8); WHITE BLOOD COUNT 3.3 K/UL (4.8-10.8)
[2020-05-16 06:40] LABS: ALANINE AMINOTRANSFERASE 52 U/L (12-78); ALBUMIN 2.3 G/DL (3.4-5.0); ALBUMIN/GLOBULIN RATIO 0.6 (1.0-2.7); ALKALINE PHOSPHATASE 91 U/L (46-116); ANION GAP 5 mmol/L (5-15); ASPARTATE AMINO TRANSFERASE 68 U/L (15-37); BILIRUBIN,TOTAL 0.6 MG/DL (0.2-1.0); BLOOD UREA NITROGEN 16 mg/dL (7-18); CALCIUM 8.2 MG/DL (8.5-10.1); CARBON DIOXIDE 25 MMOL/L (21-32); CHLORIDE 107 MMOL/L (98-107); POTASSIUM 3.9 MMOL/L (3.5-5.1); SODIUM 137 MMOL/L (136-145)
[2020-05-16 08:00] VITALS: BP 92/54
--- NOTE | 2020-05-16 08:16 | Pulmonology Progress Note ---
Subjective ROS Limited/Unobtainable: No Interval Events: none major reported per nursing Constitutional: Reports: no symptoms HEENT: Repors: no symptoms Respiratory: Reports: no symptoms Cardiovascular: Reports: no symptoms Gastrointestinal/Abdominal: Reports: no symptoms Genitourinary: Reports: no symptoms Neurologic: Reports: no symptoms Skin: Reports: ulcer, other - R leg Allergies: Coded Allergies: No Known Allergies (Unverified , 05/05/20) Objective Last 24 Hour Vital Signs Date Time Temp Pulse Resp B/P (MAP) Pulse Ox O2 Delivery O2 Flow Rate FiO2 05/16/20 04:00 98.1 52 20 97/64 (75) 98 05/16/20 00:00 97.9 53 20 92/54 (67) 98 05/15/20 20:23 Room Air 05/15/20 20:00 97.0 60 20 105/97 (100) 97 05/15/20 17:29 73 132/72 05/15/20 16:04 97.1 73 21 132/72 (92) 97 05/15/20 12:48 86 141/72 05/15/20 11:54 98.7 86 20 141/72 (95) 97 05/15/20 09:00 Room Air Intake and Output 05/15/20 05/16/20 19:00 07:00 Intake Total 360 ml 1500 ml Output Total 420 ml 1000 ml Balance -60 ml 500 ml Intake Oral 360 ml 1500 ml Output Urine Total 420 ml 1000 ml # Voids 3 2 # Bowel Movements 1 General Appearance: no acute distress HEENT: normocephalic Respiratory: chest wall non-tender, lungs clear Cardiovascular: normal peripheral pulses, normal rate Abdomen: normal bowel sounds, soft, non tender Laboratory Tests 05/16/20 05:50: White Blood Count 3.3L, Red Blood Count 4.36L, Hemoglobin 12.2L, Hematocrit 38.4L, Mean Corpuscular Volume 88, Mean Corpuscular Hemoglobin 27.9, Mean Corpuscular Hemoglobin Concent 31.8L, Red Cell Distribution Width 17.4H, Platelet Count 61L, Mean Platelet Volume 8.4, Neutrophils (%) (Auto) , Lymphocytes (%) (Auto) , Monocytes (%) (Auto) , Eosinophils (%) (Auto) , Basophils (%) (Auto) , Neutrophils % (Manual) [Pending], Lymphocytes % (Manual) [Pending], Platelet Estimate [Pending], Platelet Morphology [Pending], Sodium Level 137, Potassium Level 3.9, Chloride Level 107, Carbon Dioxide Level 25, Anion Gap 5, Blood Urea Nitrogen 16, Creatinine 1.0, Estimat Glomerular Filtration Rate > 60, Glucose Level 104, Calcium Level 8.2L, Total Bilirubin 0.6, Aspartate Amino Transf (AST/SGOT) 68H, Alanine Aminotransferase (ALT/SGPT) 52, Alkaline Phosphatase 91, Total Protein 6.3L, Albumin 2.3L, Globulin 4.0, Albumin/Globulin Ratio 0.6L Current Medications Medications (Trade) Dose Ordered Sig/Mirian Route PRN Reason Start Time Stop Time Status Last Admin Dose Admin Acetaminophen (Tylenol) 500 mg Q4H PRN ORAL Temp >100.5 05/11/20 09:30 06/10/20 09:29 05/11/20 09:28 Ascorbic Acid (Vitamin C) 500 mg DAILY ORAL 05/06/20 09:00 06/05/20 08:59 05/15/20 08:13 Clobetasol Propionate (Temovate) 1 applic TWICE A DAY TOPIC 05/08/20 11:00 08/06/20 10:59 05/15/20 17:30 Ferrous Sulfate (Feosol) 325 mg DAILY ORAL 05/06/20 09:00 08/04/20 08:59 05/15/20 08:14 Gabapentin (Neurontin) 100 mg THREE TIMES A DAY ORAL 05/06/20 09:00 06/05/20 08:59 05/15/20 17:29 Lactulose (Cephulac) 20 gm BID ORAL 05/10/20 18:00 06/09/20 17:59 05/14/20 08:27 Nitrofurantoin (Macrobid) 100 mg EVERY 12 HOURS ORAL 05/13/20 11:00 05/20/20 10:59 05/15/20 20:25 Propranolol HCl (Inderal) 10 mg THREE TIMES A DAY ORAL 05/06/20 09:00 06/05/20 08:59 05/15/20 17:29 Sertraline HCl (Zoloft) 100 mg DAILY ORAL 05/06/20 09:00 06/05/20 08:59 05/15/20 08:14 Spironolactone (Aldactone) 25 mg DAILY ORAL 05/06/20 09:00 06/05/20 08:59 05/14/20 08:28 Zinc Sulfate (Zinc Sulfate) 220 mg DAILY ORAL 05/06/20 09:00 08/04/20 08:59 05/15/20 08:13 Assessment/Plan Assessment/Plan 1. Nicotine dependence -Patient education on smoking cessation 2. Normoxemia - CXR (05/11) Linear atelectasis or scarring in the right lung -> monitor given normoxemia 3. COVID-19 negative (04/30) 4. Pancreatitis - Seen by surgery, GI - tolerating diet 5. Hep C Ab (+) - outpatient f/u per GI 6. Sepsis with fever; afebrile now - on Abx per ID - UCx strep species, gamma hemolytic - BCx neg Respiratory status is stable Saturating well on RA Pending COVID-19 PCR result prior to placement The care for this patient was discussed with my supervising physician Time spent for this case was approximately 31 mionutes Anthony Cohen May 16, 2020 08:16
--- NOTE | 2020-05-16 08:48 | Internal Med Progress Note ---
Subjective Physician Name Robert Amato Attending Physician Robert Amato M.D. Current Medications Medications (Trade) Dose Ordered Sig/Mirian Route PRN Reason Start Time Stop Time Status Last Admin Dose Admin Acetaminophen (Tylenol) 500 mg Q4H PRN ORAL Temp >100.5 05/11/20 09:30 06/10/20 09:29 05/11/20 09:28 Ascorbic Acid (Vitamin C) 500 mg DAILY ORAL 05/06/20 09:00 06/05/20 08:59 05/15/20 08:13 Clobetasol Propionate (Temovate) 1 applic TWICE A DAY TOPIC 05/08/20 11:00 08/06/20 10:59 05/15/20 17:30 Ferrous Sulfate (Feosol) 325 mg DAILY ORAL 05/06/20 09:00 08/04/20 08:59 05/15/20 08:14 Gabapentin (Neurontin) 100 mg THREE TIMES A DAY ORAL 05/06/20 09:00 06/05/20 08:59 05/15/20 17:29 Lactulose (Cephulac) 20 gm BID ORAL 05/10/20 18:00 06/09/20 17:59 05/14/20 08:27 Nitrofurantoin (Macrobid) 100 mg EVERY 12 HOURS ORAL 05/13/20 11:00 05/20/20 10:59 05/15/20 20:25 Propranolol HCl (Inderal) 10 mg THREE TIMES A DAY ORAL 05/06/20 09:00 06/05/20 08:59 05/15/20 17:29 Sertraline HCl (Zoloft) 100 mg DAILY ORAL 05/06/20 09:00 06/05/20 08:59 05/15/20 08:14 Spironolactone (Aldactone) 25 mg DAILY ORAL 05/06/20 09:00 06/05/20 08:59 05/14/20 08:28 Zinc Sulfate (Zinc Sulfate) 220 mg DAILY ORAL 05/06/20 09:00 08/04/20 08:59 05/15/20 08:13 Allergies: Coded Allergies: No Known Allergies (Unverified , 05/05/20) ROS Limited/Unobtainable: No Constitutional: Reports: weakness HEENT: Denies: no symptoms, eye pain, blurred vision, tearing, double vision, ear pain, ear discharge, nose pain, nose congestion, throat pain, throat swelling, mouth pain, mouth swelling, other Cardiovascular: Denies: no symptoms, chest pain, edema, irregular heart rate, lightheadedness, palpitations, syncope, other Respiratory: Denies: no symptoms, cough, orthopnea, shortness of breath, SOB with excertion, SOB at rest, sputum, stridor, wheezing, other Gastrointestinal/Abdominal: Denies: no symptoms, abdomen distended, abdominal pain, black stools, tarry stools, blood in stool, constipated, diarrhea, difficulty swallowing, nausea, poor appetite, poor fluid intake, rectal bleeding, vomiting, other Genitourinary: Denies: no symptoms, burning, discharge, frequency, flank pain, hematuria, incontinence, pain, urgency, other Neurologic/Psychiatric: Denies: no symptoms, anxiety, depressed, emotional problems, headache, numbness, paresthesia, pre-existing deficit, seizure, tingling, tremors, weakness, other Subjective febrile this morning UA urine cx chex xray ID consult no abd pain no nausea Impression: Evidence of hepatic cirrhosis, with coarsened echogenicity and surface nodularity Splenomegaly Cholelithiasis. Negative for dilated ducts Bilateral renal cysts incidentally noted Objective Last Vital Signs Date Time Temp Pulse Resp B/P (MAP) Pulse Ox O2 Delivery O2 Flow Rate FiO2 05/16/20 04:00 98.1 52 20 97/64 (75) 98 05/15/20 20:23 Room Air Laboratory Tests Test 05/16/20 05:50 White Blood Count 3.3 K/UL (4.8-10.8) L Red Blood Count 4.36 M/UL (4.70-6.10) L Hemoglobin 12.2 G/DL (14.2-18.0) L Hematocrit 38.4 % (42.0-52.0) L Mean Corpuscular Volume 88 FL (80-99) Mean Corpuscular Hemoglobin 27.9 PG (27.0-31.0) Mean Corpuscular Hemoglobin Concent 31.8 G/DL (32.0-36.0) L Red Cell Distribution Width 17.4 % (11.6-14.8) H Platelet Count 61 K/UL (150-450) L Mean Platelet Volume 8.4 FL (6.5-10.1) Neutrophils (%) (Auto) % (45.0-75.0) Lymphocytes (%) (Auto) % (20.0-45.0) Monocytes (%) (Auto) % (1.0-10.0) Eosinophils (%) (Auto) % (0.0-3.0) Basophils (%) (Auto) % (0.0-2.0) Neutrophils % (Manual) Pending Lymphocytes % (Manual) Pending Platelet Estimate Pending Platelet Morphology Pending Sodium Level 137 MMOL/L (136-145) Potassium Level 3.9 MMOL/L (3.5-5.1) Chloride Level 107 MMOL/L (98-107) Carbon Dioxide Level 25 MMOL/L (21-32) Anion Gap 5 mmol/L (5-15) Blood Urea Nitrogen 16 mg/dL (7-18) Creatinine 1.0 MG/DL (0.55-1.30) Estimat Glomerular Filtration Rate > 60 mL/min (>60) Glucose Level 104 MG/DL (74-106) Calcium Level 8.2 MG/DL (8.5-10.1) L Total Bilirubin 0.6 MG/DL (0.2-1.0) Aspartate Amino Transf (AST/SGOT) 68 U/L (15-37) H Alanine Aminotransferase (ALT/SGPT) 52 U/L (12-78) Alkaline Phosphatase 91 U/L (46-116) Total Protein 6.3 G/DL (6.4-8.2) L Albumin 2.3 G/DL (3.4-5.0) L Globulin 4.0 g/dL Albumin/Globulin Ratio 0.6 (1.0-2.7) L Intake and Output 05/15/20 05/16/20 19:00 07:00 Intake Total 360 ml 1500 ml Output Total 420 ml 1000 ml Balance -60 ml 500 ml Intake Oral 360 ml 1500 ml Output Urine Total 420 ml 1000 ml # Voids 3 2 # Bowel Movements 1 Objective General appearance: alert, cooperative, no distress, appears stated age Head: Normocephalic, without obvious abnormality, atraumatic Eyes: conjunctivae/corneas clear. PERRL, EOM's intact. Fundi benign Throat: Lips, mucosa, and tongue normal. Teeth and gums normal Neck: supple, symmetrical, trachea midline, no adenopathy, thyroid: not enlarged, symmetric, no tenderness/mass/nodules, no carotid bruit and no JVD Lungs: clear to auscultation bilaterally Heart: regular rate and rhythm, S1, S2 normal, no murmur, click, rub or gallop Abdomen: soft, non-tender. Bowel sounds normal. No masses, no organomegaly Extremities: extremities normal, atraumatic, no cyanosis or edema Pulses: 2+ and symmetric Skin: Skin color, texture, turgor normal. No rashes or lesions Neurologic: Grossly normal Assessment/Plan Assessment/Plan #hepatitis C cirrhosis #Elevated lipase #hypertension #cirrhosis #anemia, #behavioral disorder #fevers - UA - urine cx - chest xray - ID consult - GI eval - gen surg eval - trend lipase - monitor LFTS - abd US - resume S[employer] meds - monitor lytes - propanalol 10 TID - aldactone 25mg daily Time spent 45 min Robert Amato M.D. May 16, 2020 08:48
[2020-05-16] MEDS: Propranolol 10mg tab ORAL SCH ×3 (09:00→18:00)
[2020-05-16] MEDS: Lactulose 20gm/30ml UDC ORAL SCH ×2 (09:00→18:00)
[2020-05-16] MEDS: Zinc Sulfate 220mg ORAL SCH (09:34)
[2020-05-16] MEDS: Ascorbic Acid 500mg tab ORAL SCH (09:34)
[2020-05-16] MEDS: Spironolactone 25mg tab ORAL SCH (09:34)
[2020-05-16] MEDS: Sertraline 100mg tab ORAL SCH (09:34)
[2020-05-16] MEDS: CLOBETASOL 0.05% TOPIC SCH ×2 (09:42→18:03)
[2020-05-16 12:00] VITALS: BP 93/61
--- NOTE | 2020-05-16 13:14 | General Progress Note ---
Subjective ROS Limited/Unobtainable: Yes Allergies: Coded Allergies: No Known Allergies (Unverified , 05/05/20) Objective Last 24 Hour Vital Signs Date Time Temp Pulse Resp B/P (MAP) Pulse Ox O2 Delivery O2 Flow Rate FiO2 05/16/20 13:00 61 93/61 05/16/20 12:00 98.5 61 20 93/61 (72) 100 05/16/20 09:00 59 92/54 05/16/20 09:00 Room Air 05/16/20 08:00 98.6 59 20 92/54 (67) 97 05/16/20 04:00 98.1 52 20 97/64 (75) 98 05/16/20 00:00 97.9 53 20 92/54 (67) 98 05/15/20 20:23 Room Air 05/15/20 20:00 97.0 60 20 105/97 (100) 97 05/15/20 17:29 73 132/72 05/15/20 16:04 97.1 73 21 132/72 (92) 97 Intake and Output 05/15/20 05/16/20 19:00 07:00 Intake Total 360 ml 1500 ml Output Total 420 ml 1000 ml Balance -60 ml 500 ml Intake Oral 360 ml 1500 ml Output Urine Total 420 ml 1000 ml # Voids 3 2 # Bowel Movements 1 Laboratory Tests 05/16/20 05:50: White Blood Count 3.3L, Red Blood Count 4.36L, Hemoglobin 12.2L, Hematocrit 38.4L, Mean Corpuscular Volume 88, Mean Corpuscular Hemoglobin 27.9, Mean Corpuscular Hemoglobin Concent 31.8L, Red Cell Distribution Width 17.4H, Platelet Count 61L, Mean Platelet Volume 8.4, Neutrophils (%) (Auto) , Lymphocytes (%) (Auto) , Monocytes (%) (Auto) , Eosinophils (%) (Auto) , Basophils (%) (Auto) , Differential Total Cells Counted 100, Neutrophils % (Man ual) 60, Lymphocytes % (Manual) 27, Monocytes % (Manual) 8, Eosinophils % (Manual) 5H, Basophils % (Manual) 0, Band Neutrophils 0, Platelet Estimate DecreasedL, Platelet Morphology Normal, Anisocytosis 1+, Sodium Level 137, Potassium Level 3.9, Chloride Level 107, Carbon Dioxide Level 25, Anion Gap 5, Blood Urea Nitrogen 16, Creatinine 1.0, Estimat Glomerular Filtration Rate > 60, Glucose Level 104, Calcium Level 8.2L, Total Bilirubin 0.6, Aspartate Amino Transf (AST/SGOT) 68H, Alanine Aminotransferase (ALT/SGPT) 52, Alkaline Phosphatase 91, Total Protein 6.3L, Albumin 2.3L, Globulin 4.0, Albumin/Globulin Ratio 0.6L Height (Feet): 5 Height (Inches): 9.00 Weight (Pounds): 217 General Appearance: no apparent distress EENT: normal ENT inspection Neck: supple Cardiovascular: normal rate Respiratory/Chest: decreased breath sounds Abdomen: normal bowel sounds, non tender, soft Extremities: non-tender Assessment/Plan Problem List: (1) History of cirrhosis ICD Codes: Z87.19 - Personal history of other diseases of the digestive system SNOMED: 421398549 (2) Pancreatitis ICD Codes: K85.90 - Acute pancreatitis without necrosis or infection, unspecified SNOMED: 53140621 (3) Encephalopathy ICD Codes: G93.40 - Encephalopathy, unspecified SNOMED: 33500953 (4) Cholelithiasis ICD Codes: K80.20 - Calculus of gallbladder without cholecystitis without obstruction SNOMED: 324166338 Assessment/Plan: us reviewed on diet hep c + needs out patient fu lactulose will fu Clarence Morelos MD May 16, 2020 13:14
[2020-05-16] MEDS ORDERED: NITROFURANTOIN100 M2 ORAL (13:33)
[2020-05-16] MEDS ORDERED: LACTULOSE20 GM/301 ORAL (13:36)
[2020-05-16] MEDS ORDERED: ZINC SULFATE220 M1 ORAL (13:39)
--- NOTE | 2020-05-16 14:14 | Infectious Diseases Prog Note ---
Assessment/Plan Assessment/Plan IMPRESSION: Fever, likely sepsis. Acute pancreatitis, improving. cirrhosis of liver. encephalopathy. Hepatitis C, thrombocytopenia, hypertension, anemia, Splenomegaly, Cholelithiasis. History of infective endocarditis s/p bioprosthetic valve R leg hematoma Bacteriuria RECOMMENDATION: We will follow up cultures Continue nitrofurantoin X 2 days Subjective ROS Limited/Unobtainable: No Respiratory: Reports: no symptoms Gastrointestinal/Abdominal: Reports: no symptoms Genitourinary: Reports: no symptoms Psychiatric: Reports: other - elated mood Allergies: Coded Allergies: No Known Allergies (Unverified , 05/05/20) Objective Last 24 Hour Vital Signs Date Time Temp Pulse Resp B/P (MAP) Pulse Ox O2 Delivery O2 Flow Rate FiO2 05/16/20 13:00 61 93/61 05/16/20 12:00 98.5 61 20 93/61 (72) 100 05/16/20 09:00 59 92/54 05/16/20 09:00 Room Air 05/16/20 08:00 98.6 59 20 92/54 (67) 97 05/16/20 04:00 98.1 52 20 97/64 (75) 98 05/16/20 00:00 97.9 53 20 92/54 (67) 98 05/15/20 20:23 Room Air 05/15/20 20:00 97.0 60 20 105/97 (100) 97 05/15/20 17:29 73 132/72 05/15/20 16:04 97.1 73 21 132/72 (92) 97 Height (Feet): 5 Height (Inches): 9.00 Weight (Pounds): 217 HEENT: mucous membranes moist Respiratory/Chest: lungs clear Cardiovascular: normal rate Abdomen: soft, non tender Extremities: other - legs edema R> L Skin: ulcers, other - R leg Neurologic/Psychiatric: alert, responsive Laboratory Tests Test 05/16/20 05:50 White Blood Count 3.3 K/UL (4.8-10.8) L Red Blood Count 4.36 M/UL (4.70-6.10) L Hemoglobin 12.2 G/DL (14.2-18.0) L Hematocrit 38.4 % (42.0-52.0) L Mean Corpuscular Volume 88 FL (80-99) Mean Corpuscular Hemoglobin 27.9 PG (27.0-31.0) Mean Corpuscular Hemoglobin Concent 31.8 G/DL (32.0-36.0) L Red Cell Distribution Width 17.4 % (11.6-14.8) H Platelet Count 61 K/UL (150-450) L Mean Platelet Volume 8.4 FL (6.5-10.1) Neutrophils (%) (Auto) % (45.0-75.0) Lymphocytes (%) (Auto) % (20.0-45.0) Monocytes (%) (Auto) % (1.0-10.0) Eosinophils (%) (Auto) % (0.0-3.0) Basophils (%) (Auto) % (0.0-2.0) Differential Total Cells Counted 100 Neutrophils % (Manual) 60 % (45-75) Lymphocytes % (Manual) 27 % (20-45) Monocytes % (Manual) 8 % (1-10) Eosinophils % (Manual) 5 % (0-3) H Basophils % (Manual) 0 % (0-2) Band Neutrophils 0 % (0-8) Platelet Estimate Decreased L Platelet Morphology Normal Anisocytosis 1+ Sodium Level 137 MMOL/L (136-145) Potassium Level 3.9 MMOL/L (3.5-5.1) Chloride Level 107 MMOL/L (98-107) Carbon Dioxide Level 25 MMOL/L (21-32) Anion Gap 5 mmol/L (5-15) Blood Urea Nitrogen 16 mg/dL (7-18) Creatinine 1.0 MG/DL (0.55-1.30) Estimat Glomerular Filtration Rate > 60 mL/min (>60) Glucose Level 104 MG/DL (74-106) Calcium Level 8.2 MG/DL (8.5-10.1) L Total Bilirubin 0.6 MG/DL (0.2-1.0) Aspartate Amino Transf (AST/SGOT) 68 U/L (15-37) H Alanine Aminotransferase (ALT/SGPT) 52 U/L (12-78) Alkaline Phosphatase 91 U/L (46-116) Total Protein 6.3 G/DL (6.4-8.2) L Albumin 2.3 G/DL (3.4-5.0) L Globulin 4.0 g/dL Albumin/Globulin Ratio 0.6 (1.0-2.7) L Current Medications Medications (Trade) Dose Ordered Sig/Mirian Route PRN Reason Start Time Stop Time Status Last Admin Dose Admin Acetaminophen (Tylenol) 500 mg Q4H PRN ORAL Temp >100.5 05/11/20 09:30 06/10/20 09:29 05/11/20 09:28 Ascorbic Acid (Vitamin C) 500 mg DAILY ORAL 05/06/20 09:00 06/05/20 08:59 05/16/20 09:34 Clobetasol Propionate (Temovate) 1 applic TWICE A DAY TOPIC 05/08/20 11:00 08/06/20 10:59 05/16/20 09:42 Ferrous Sulfate (Feosol) 325 mg DAILY ORAL 05/06/20 09:00 08/04/20 08:59 05/16/20 09:33 Gabapentin (Neurontin) 100 mg THREE TIMES A DAY ORAL 05/06/20 09:00 06/05/20 08:59 05/16/20 13:42 Lactulose (Cephulac) 20 gm BID ORAL 05/10/20 18:00 06/09/20 17:59 05/14/20 08:27 Nitrofurantoin (Macrobid) 100 mg EVERY 12 HOURS ORAL 05/13/20 11:00 05/20/20 10:59 05/16/20 09:34 Propranolol HCl (Inderal) 10 mg THREE TIMES A DAY ORAL 05/06/20 09:00 06/05/20 08:59 05/15/20 17:29 Sertraline HCl (Zoloft) 100 mg DAILY ORAL 05/06/20 09:00 06/05/20 08:59 05/16/20 09:34 Spironolactone (Aldactone) 25 mg DAILY ORAL 05/06/20 09:00 06/05/20 08:59 05/16/20 09:34 Zinc Sulfate (Zinc Sulfate) 220 mg DAILY ORAL 05/06/20 09:00 08/04/20 08:59 05/16/20 09:34 Darrian Workman MD May 16, 2020 14:14
--- NOTE | 2020-05-16 14:49 | Surgery Progress Note ---
Surgery Progress Note Subjective Symptoms: improved, tolerating diet, passing flatus Objective Last 24 Hour Vital Signs Date Time Temp Pulse Resp B/P (MAP) Pulse Ox O2 Delivery O2 Flow Rate FiO2 05/16/20 13:00 61 93/61 05/16/20 12:00 98.5 61 20 93/61 (72) 100 05/16/20 09:00 59 92/54 05/16/20 09:00 Room Air 05/16/20 08:00 98.6 59 20 92/54 (67) 97 05/16/20 04:00 98.1 52 20 97/64 (75) 98 05/16/20 00:00 97.9 53 20 92/54 (67) 98 05/15/20 20:23 Room Air 05/15/20 20:00 97.0 60 20 105/97 (100) 97 05/15/20 17:29 73 132/72 05/15/20 16:04 97.1 73 21 132/72 (92) 97 I&O Intake and Output 05/15/20 05/16/20 19:00 07:00 Intake Total 360 ml 1500 ml Output Total 420 ml 1000 ml Balance -60 ml 500 ml Intake Oral 360 ml 1500 ml Output Urine Total 420 ml 1000 ml # Voids 3 2 # Bowel Movements 1 Dressing: saturated Cardiovascular: RSR Respiratory: decreased breath sounds Abdomen: soft, non-tender, present bowel sounds, non-distended Extremities: no tenderness, no cyanosis Laboratory Tests Test 05/16/20 05:50 White Blood Count 3.3 K/UL (4.8-10.8) L Red Blood Count 4.36 M/UL (4.70-6.10) L Hemoglobin 12.2 G/DL (14.2-18.0) L Hematocrit 38.4 % (42.0-52.0) L Mean Corpuscular Volume 88 FL (80-99) Mean Corpuscular Hemoglobin 27.9 PG (27.0-31.0) Mean Corpuscular Hemoglobin Concent 31.8 G/DL (32.0-36.0) L Red Cell Distribution Width 17.4 % (11.6-14.8) H Platelet Count 61 K/UL (150-450) L Mean Platelet Volume 8.4 FL (6.5-10.1) Neutrophils (%) (Auto) % (45.0-75.0) Lymphocytes (%) (Auto) % (20.0-45.0) Monocytes (%) (Auto) % (1.0-10.0) Eosinophils (%) (Auto) % (0.0-3.0) Basophils (%) (Auto) % (0.0-2.0) Differential Total Cells Counted 100 Neutrophils % (Manual) 60 % (45-75) Lymphocytes % (Manual) 27 % (20-45) Monocytes % (Manual) 8 % (1-10) Eosinophils % (Manual) 5 % (0-3) H Basophils % (Manual) 0 % (0-2) Band Neutrophils 0 % (0-8) Platelet Estimate Decreased L Platelet Morphology Normal Anisocytosis 1+ Sodium Level 137 MMOL/L (136-145) Potassium Level 3.9 MMOL/L (3.5-5.1) Chloride Level 107 MMOL/L (98-107) Carbon Dioxide Level 25 MMOL/L (21-32) Anion Gap 5 mmol/L (5-15) Blood Urea Nitrogen 16 mg/dL (7-18) Creatinine 1.0 MG/DL (0.55-1.30) Estimat Glomerular Filtration Rate > 60 mL/min (>60) Glucose Level 104 MG/DL (74-106) Calcium Level 8.2 MG/DL (8.5-10.1) L Total Bilirubin 0.6 MG/DL (0.2-1.0) Aspartate Amino Transf (AST/SGOT) 68 U/L (15-37) H Alanine Aminotransferase (ALT/SGPT) 52 U/L (12-78) Alkaline Phosphatase 91 U/L (46-116) Total Protein 6.3 G/DL (6.4-8.2) L Albumin 2.3 G/DL (3.4-5.0) L Globulin 4.0 g/dL Albumin/Globulin Ratio 0.6 (1.0-2.7) L Plan Problems: (1) History of cirrhosis (2) Pancreatitis Assessment & Plan: This is a 64-year-old male with known history of cirrhosis and identified to have pancreatitis aggressive encephalopathy admitted for the care management. Labs noted. No current imaging available. Imaging ordered. Ultrasound abdomen. Abdominal distention fluid potentially ascites may need tap. Afebrile hemodynamic stable labs noted shift identified. LFTs noted. Okay for diet from surgical standpoint. Will follow with recommendations as imaging and orders available. Pt presented on admission with Edema Bilat Lower Extremity,Ulcer Medial R tibia. Haemosiderin Stain with Xerotic Skin and scattered hyperkeratotic plaques. Both feet are cool to touch. Wound Medial R lower extremity;just inferior to Knee. Wound is moist,sarai with Biofilm. Small area of Necrosis clockwise along borders @8o'clock. Borders are irregular,and macerated.Wound oozing serous exudate.(L)3.4cm x (W)2.2cm x (D)0.3cm. Mild odor noted. Pt stated having wound for 3months. Dried sanguineous exudate noted to nail matrix of R 1st, 2nd,3rd,4th and 5th metatarsals. Post cleansing ,pt noted to have several small lacerations. In addition, small laceration noted at base, plantar R 1st metatarsal. Pt stated" I confess, I have been using a nail to pick at my toenails." In addition, several linear cuts noted to plantar R Heel. Education provided to pt of risks for infection,or worse secondary to compromised circulation in lower extremities. Pt also given education on skin care to promote skin integrity and preventing ulcerations. Encouraged to keep legs elevated while sitting or while in bed. Tx.Plan: Wash and moisturize both lower extremities Daily and prn. Cleanse wound R lower extremity with Saline. Apply Silvasorb Gel. Apply Maxsorb Extra . Cover with ABD Pad. Wrap with Kerlix from Base of Toes to below Knee Daily and prn. Apply Betadine to Nail Matrixes of toes R foot, Plantar R 1st metatarsal and Plantar R Heel Daily. Elevate Both Lower Extremities with Pillows. pancreatitis resolved doing well no n/v/f/c comfortable (3) Encephalopathy Declan Cole May 16, 2020 14:49
[2020-05-16 18:00] VITALS: BP 107/65
--- NOTE | 2020-05-18 12:18 | Discharge Summary ---
Discharge Summary Discharge Summary _ Date of admission: 05/05/2020 Date of discharge: 05/16/[address] Amato. History of Present Illness and Brief Hospital Course Mr. Alcocer is a 64-year-old male with past medical history of infective endocarditis s/p bioprosthetic valve, hepatitis C, cirrhosis, hypertension, anemia and behavioral disorder, who presented to ED after becoming aggressive at his residential facility. Patient tested negative for COVID-19 at his facility on 04/30/2020. Initial laboratory studies were remarkable for elevated AST and ammonia levels. Patient was admitted to the hospital for further management. Given the finding of bacteriuria, patient was started on nitrofurantoin. Given the initial presentation with fever, blood cultures were collected and patient was started on empiric antibiotics. The blood cultures came back negative and antibiotic was discontinued. Patient was noted to have pancreatitis with encephalopathy on admission. Abdominal ultrasound revealed evidence of hepatic cirrhosis, splenomegaly, cholelithiasis and bilateral renal cysts. Patient was started on lactulose given elevated ammonia level. Patient tested positive for hepatitis C antibodies. Patient would require outpatient follow-up. Pancreatitis resolved by the time of his discharge. Patient also presented with edema in the bilateral lower extremities, and ulcer on medial right tibia. Wound care was in place. Throughout his hospitalization, encephalopathy and pancreatitis resolved. A new placement was found for him and patient was discharged to a residential facility in stable condition. Consultants: Infectious disease Dr. Workman Pulmonology Dr. Gomez Surgery Dr. Cole Discharge Condition Improved and stable Discharge Activity As tolerated Discharge Diet Regular Final diagnoses Acute pancreatitis Cirrhosis of liver Encephalopathy Hepatitis C Thrombocytopenia Hypertension Anemia Splenomegaly Cholelithiasis History of infective endocarditis Status post bioprosthetic valve Bacteriuria Anemia Behavioral disorder Nicotine dependence I have been assigned to dictate discharge summary for this account. Anthony Cohen May 18, 2020 12:18
== END 2020-05-16 19:20 | DRG 282 ==
LOC: EDBD 12:20 → EMR 13:59 → 4E 15:57 → EDBEDREQ 18:02
DX: K85.90 Acute pancreatitis without necrosis or infection, unspecified (principal); G93.49 Other encephalopathy; D69.6 Thrombocytopenia, unspecified; F91.9 Conduct disorder, unspecified; I10 Essential (primary) hypertension; K74.69 Other cirrhosis of liver; B19.20 Unspecified viral hepatitis C without hepatic coma; K80.20 Calculus of gallbladder without cholecystitis without obstruction; A41.9 Sepsis, unspecified organism; D64.9 Anemia, unspecified; F32.9 Major depressive disorder, single episode, unspecified; F17.200 Nicotine dependence, unspecified, uncomplicated; R16.1 Splenomegaly, not elsewhere classified; F10.11 Alcohol abuse, in remission; Z95.4 Presence of other heart-valve replacement; L97.819 Non-pressure chronic ulcer of other part of right lower leg with unspecified severity; F15.11 Other stimulant abuse, in remission
CPT/HCPCS: 36415; 71045; 76700; 80048; 80053; 80307; 81001; 81003; 82140; 82150; 82248; 83690; 83735; 84100; 85007; 85025; 85610; 85651; 85730; 86140; 86705; 86709; 86803; 87040; 87086; 87181; 87340; 99285; G0480